=== PATIENT | male | born 1945 ===

== ENCOUNTER → 2017-04-27 | Outpatient (CLI) | payer OTHER ==
--- NOTE | 2017-05-05 10:25 | P.ARTDOP ---
Arterial Doppler LOWER EXTREMITY ARTERIAL DOPPLER: DATE OF SERVICE: 04/27/2017 Reason for study: Bilateral leg discoloration and swelling. Doppler waveforms: Multiphasic to the popliteal bilaterally and atypical below. Good toe waveforms.. Pulse volume recording: []. Pressure gradients: Mild distal gradient at the left foot. Ankle-brachial indices: 0.98 on the right and greater than 1 on the left. Toe pressures: 83 on the right, 58 on the left Impression: Mild distal disease with perfusion pressures adequate for healing..
== END | disposition home or self-care (01) ==
LOC: RADUSWWP 14:11
PROVIDERS: ATTEND Family Medicine
DX: I77.89 Other specified disorders of arteries and arterioles (principal)
CPT/HCPCS: 93923

== ENCOUNTER → 2017-05-13 | Outpatient (CLI) | payer OTHER | END | disposition home or self-care (01) | LOC: LABPAT 13:31 | PROVIDERS: ATTEND Orthopaedic Surgery Orthopaedic Surgery of the Spine | DX: Z01.812 Encounter for preprocedural laboratory examination (principal); Z01.818 Encounter for other preprocedural examination | CPT/HCPCS: 87070 ==

== ENCOUNTER 2017-05-19 06:23 | Inpatient (IN) | payer OTHER ==
[2017-05-13 07:57] VITALS: BMI 29.4
[~2017-05-19 06:23] MED LIST: BACITRACIN 50,000 UNIT, POLYMYXIN B 500,000 UNIT in SODIUM CHLORIDE 0.9% IRRIGATIO 1,00... IRRIGATION ONE; HYDROmorphone 1 MG/ML 1 ML SYRINGE IVP PRN; LIDOCAINE 1% 20 ML VIAL (10MG/ML) FOR IV START INTRADERMA PRN; ceFAZolin 2 GM in SODIUM CHLORIDE 0.9% 100 ML IVPB ONE
[2017-05-19] MEDS: LACTATED RINGERS 1,000 ML IV SCH (07:05)
[2017-05-19] MEDS ORDERED: ONDANSETRON 4 MG/2 ML VIAL IVP STA (07:06)
[2017-05-19] MEDS ORDERED: fentaNYL (PF) 50 MCG/ML 2 ML AMP ONE (07:58)
[2017-05-19] MEDS ORDERED: THROMBIN (BOVINE) 5,000 UNIT VIAL TOPICAL ONE (07:58)
[2017-05-19] MEDS ORDERED: HEPARIN SODIUM,PORCINE 10,000 UNIT/ML 1 ML VIAL ONE (07:58)
[2017-05-19] MEDS ORDERED: PROPOFOL 10 MG/ML 20 ML VIAL IV ONE (07:58)
[2017-05-19] MEDS ORDERED: LIDOCAINE 0.5%-EPI 1:200,000 50 ML VIAL SQ ONE (07:58)
[2017-05-19] MEDS ORDERED: SUCCINYLCHOLINE CHLORIDE 100 MG/5 ML SYR IV ONE (07:58)
[2017-05-19] MEDS ORDERED: GELATIN SPONGE,ABSORB (LARGE) 1 EACH SPONGE TOPICAL ONE (07:58)
[2017-05-19] MEDS ORDERED: ePHEDrine 50 MG/ML 1 ML AMP ONE (07:58)
[2017-05-19] MEDS ORDERED: KETAMINE 10 MG/ML 20 ML VIAL ONE (07:58)
[2017-05-19] MEDS ORDERED: PHENYLEPHRINE-0.9% NACL SYG 1 MG/10 ML SYRINGE ONE (07:58)
[2017-05-19] MEDS ORDERED: MIDAZOLAM 2 MG/2 ML VIAL ONE (07:58)
[2017-05-19] MEDS ORDERED: ROCURONIUM BROMIDE 10 MG/ML 10 ML VIAL IV ONE (07:58)
[2017-05-19] MEDS ORDERED: SODIUM CHLORIDE 0.9% IRRIG 1,000 ML BTL IRRIGATION ONE (07:58)
[2017-05-19] MEDS ORDERED: METOPROLOL TARTRATE 5 MG/5 ML VIAL IVP ONE (07:58)
[2017-05-19] MEDS ORDERED: LIDOCAINE 1% INJ 10MG/ML (20 ML MDV) ONE (07:58)
[2017-05-19] MEDS ORDERED: LACTATED RINGERS 1,000 ML IV ONE ×3 (08:30→11:20)
[2017-05-19] MEDS ORDERED: [UNRECOGNIZED DRUG - OTHER] MISCELLANE ONE ×4 (09:09)
[2017-05-19] MEDS ORDERED: BUPIVACAINE LIPOSOME MISCELLANE ONE ×4 (09:09)
[2017-05-19 11:10] LABS: Blood Urea Nitrogen 18 mg/dL (9-20); Non-African American GFR(MDRD) >60 (>60 ml/min/1.73 sqM)
[2017-05-19] MEDS ORDERED: ONDANSETRON 4 MG/2 ML VIAL IVP PRN (13:03)
[2017-05-19] MEDS ORDERED: BENZOCAINE/MENTHOL LOZENG 1 EACH LOZENGE MUCOUS MEM PRN (13:03)
[2017-05-19] MEDS ORDERED: DIAZEPAM 5 MG TAB PO PRN (13:03)
[2017-05-19] MEDS ORDERED: HYDROmorphone 1 MG/ML 1 ML SYRINGE IVP PRN ×2 (13:03)
[2017-05-19] MEDS ORDERED: MAGNESIUM HYDROXIDE 2,400 MG/10 ML CUP PO PRN (13:03)
--- NOTE | 2017-05-19 13:14 | P.OP ---
Date of Procedure: 05/19/17 Preoperative Diagnosis: Spinal stenosis L4 5 L5-S1, degenerative disc disease L4 5 L5-S1, facet arthrosis, lower extremity radiculopathy Postoperative Diagnosis: Same Procedure(s) Performed: Implants: Anesthesia: GETA Pathology: none sent Condition: stable Disposition: PACU Indications for Procedure: Operative Findings: Description of Procedure: DESCRIPTION OF PROCEDURE(S): BRIEF OPERATIVE NOTE Preoperative Diagnosis: Spinal stenosis L4 5 L5-S1, degenerative disc disease L4 5 L5-S1, facet arthrosis, low back pain with lower extremity radiculopathy Postoperative Diagnosis: Same Procedure: Laminectomy and decompression, minimally invasive L4 5 L5-S1 Minimally invasive Posterior lateral decompression and facet fusion L4 5 L5-S1 Minimally invasive Transforaminal lumbar interbody fusion for a 360 fusion L4 5 L5-S1 Discectomy for decompression L4 5 L5-S1 Placement of interbody graft L4 5 L5-S1 Local autogenous bone grafting Bone marrow aspiration via the pedicle of L5 on the left to be used with the supplementing of bone graft Use of Cell Saver Use of bone graft extenders Surgeon: Dr. Borrero Robotype Operator: Brian MEJIA, my PA Anesthesia: General anesthesia per Dr. Fabian Estimated blood loss: Approximately 4 and 50 mL with 200 given back through Cell Saver Complications: None apparent Components implanted:K2M minimally invasive [place] screw pedicle screw system with 5 screws measuring 6.5 and 1 screw measuring at S1 on the right 7.5, I also used one large osteoamp sponge and continuous fiber allograft Disposition: To recovery room in good stable condition. OPERATIVE INDICATIONS The patient has had long-standing issues in their lower back and lower extremities. His found have significant stenosis at the bilateral neural foramen with degenerative disc disease and spinal stenosis with facet arthrosis correlating with his back pain and lower extremity radiculopathy. The patient has been through conservative treatment. He is not having any prolonged benefit despite aggressive conservative treatment We discussed various treatment options including surgery, and the patient wishes to proceed with surgery We discussed the risk, patient's alternatives and benefits of surgery including but not limited to, risk of bleeding risk of infection, risk of need for further surgery, risk of decreased, loss of motion, muscle function, malunion nonunion, hardware failure, nerve damage, paralysis, heart attack, blindness and . OPERATIVE SUMMARY After discussing all the risks, patient alternatives and benefits at length, the patient elected to proceed with surgical intervention, signed informed consent, and presented for their procedure. The patient was seen and examined in the preoperative holding area and the surgical site was marked. The patient was given antibiotics and brought to the operating room. The patient was sedated and intubated by anesthesia in standard fashion. The patient was positioned on to the operating room table in a prone position on the appropriate frame which was well-padded and well molded. We were careful to pad any bony prominences and pressure points. We were careful to maintain the patient's cervical spine and good neutral alignment and position throughout. The patient was prepped and draped in a normal standard fashion. An appropriate timeout and keystone protocol performed. We were able to proceed with the surgery. The local wound area was infiltrated with local anesthetic. I was able utilize C-arm guidance to establish appropriate position over the pedicles bilaterally at the appropriate levels at L4 5 and L5-S1. With the appropriate levels confirmed was able to make small stab incisions over the appropriate pedicle sites bilaterally. Utilizing C-arm in his house able to establish a Jamshidi needle over the lateral aspect of the pedicle and advanced the trocar into the pedicle being careful not to breech superiorly inferiorly medially or laterally. Position was confirmed regularly with AP and lateral images on C-arm. I was able to establish the trocar into the pedicle appropriately into the posterior aspect of the vertebral body bilaterally at the appropriate levels. This was done at each of the pedicle positions and each of the vertebrae. I was able place the guidewire into the trocar and into the vertebral body appropriately under C-arm guidance. Dissection was taken down over the wire to the appropriate starting position for the screw placed. The appropriate length screw was chosen, threaded over the guidewire and screwed appropriately into the pedicle and vertebral body under C-arm guidance in excellent alignment and position with good bony purchase. This is done at each of the screw sites at the appropriate levels. After placing the trocar at L5-S1 left I did perform a bone marrow aspiration through the pedicle for use with the bone marrow aspirate in conjunction with the autograft and allograft bone graft. This was performed at L4-L5 and S1 bilaterally. I did note that there was some lateralization of the screw at S1 on the right and I repositioned the guidewire and screw to get good alignment good position with excellent bony purchase. At on that screw I used a 7.5 mm screw instead of using the 6.5 mm screw for additional fixation. With the screws intact I extended the incision to connect the screw hole sites on the most symptomatic side on the left. I started at L5-S1 and then moved up to L4 5. I dissected down to establish access over the pars and lamina to the base of the spinous process. I was able to expose the facet joint. The capsule the facet was taken down and showed some facet arthrosis at the joint. I was able to use a combination of curettes and Kerrison rongeurs and a high- speed drill to take down the facet joint and do a facetectomy. Partial laminectomy was also performed. I was able get excellent foraminal decompression and central decompression with undermining across midline to perform a laminectomy centrally and contralaterally. As able get good central decompression. The ligamentum flavum was taken down to further decompress centrally and at bilateral neural foramen. I was able to expose the disc space and visualize the traversing nerve root. Note was made of some disc protrusion at the level causing further compression of the nerve root. I was able to establish a annulotomy at the appropriate level protecting soft tissue and neural structures. Note was made of some disc desiccation at the disc. I performed a complete discectomy with accommodation of curettes and rasps and scrapers. I was able get good endplate preparation at the disc space. I sized for the appropriate size interbody spacer protecting the soft tissue and neural structures. The wound was copiously irrigated and suctioned dry. There is no evidence of any dural tear or leak. I was able to pack the disc space with local autogenous bone graft as well as a small amount of infuse which was also placed into the interbody cage itself. Protecting the soft tissue structures and neural structures I was able place the interbody cage in good alignment and good position with good fit and fill at the interbody space. His issues was confirmed with C-arm guidance. Good hemostasis maintained. There is no evidence of any dural tear or leak. The wound was irrigated and suctioned dry. This was performed first at L5-S1 and then at L4 5 With the hardware intact, intraoperative C-arm imaging was again taken which showed good alignment and position of the hardware at the appropriate levels at L4 5 and S1. We were then able to measure, contour and place the rods and appropriate hardware bilaterally. I was able to place capcrews, tighten them down, and shear them off appropriately. The sheared portion was counted and accounted for. With this intact I was able to place the local autogenous bone graft with additional bone graft enhancer as necessary into the posterior lateral gutters over the decorticated transverse processes. The remainder of the infuse was placed over the facet joint on the contralateral side after taking down the facet joint capsule. With the bone graft intact, a stable construct, and good decompression at the appropriate levels, we were able to proceed with closure. Good hemostasis was maintained. There is no evidence of dural tear or leak. The fascia was closed for a watertight closure. he subcuticular tissue was closed with absorbable suture. The bilateral wounds were infiltrated with Exparel local anesthetic The wound was cleaned and dried and dressed with the appropriate dressing. The drapes were broken down. The patient was gently rolled back onto their hospital bed being careful to maintain their cervical spine and good neutral alignment and position. They were woken up by anesthesia, extubated, and brought to the recovery room in good stable condition. The patient will be admitted to the hospital for appropriate postoperative care , medical management and monitoring. We will continue to follow them closely about the postoperative course.
--- NOTE | 2017-05-19 13:34 | XR ---
EXAMINATION TYPE: XR lumbar spine 2 or 3V, FL guidance operating room DATE OF EXAM: 05/19/2017 COMPARISON: NONE HISTORY: Lumbar fusion TECHNIQUE: Intraoperative fluoroscopic images were obtained. FINDINGS: 2 minutes and 31 seconds of fluoroscopy time was utilized by the ordering physician Dr. Sebastian pena. Fluoroscopic images were not submitted. IMPRESSION: Intraoperative fluoroscopic use for lumbar fusion.
[2017-05-19] MEDS: FUROSEMIDE 40 MG TAB PO SCH (17:07)
[2017-05-19] MEDS: ceFAZolin 2 GM in SODIUM CHLORIDE 0.9% 100 ML IVPB SCH ×2 (17:07→23:57)
[2017-05-19] MEDS ORDERED: PRAVASTATIN SODIUM 10 MG PO SCH (21:00)
[2017-05-19] MEDS: METOPROLOL TARTRATE 25 MG TAB PO SCH (21:22)
[2017-05-19] MEDS: PRAVASTATIN SODIUM 20 MG TAB PO SCH (21:22)
[2017-05-19] MEDS: SODIUM CHLORIDE 0.9% 1,000 ML IV SCH (22:48)
[2017-05-20] MEDS: HYDROcodone/APAP 5-325MG 1 EACH TAB PO PRN ×4 (03:49→19:29)
[2017-05-20] MEDS: LACTATED RINGERS 1,000 ML IV SCH (07:25)
[2017-05-20] MEDS: SODIUM CHLORIDE 0.9% 1,000 ML IV SCH ×2 (07:25→17:51)
[2017-05-20 07:54] LABS: Basophils % (A) 0 %; CH 31.1; CHCM 32.2; Eosinophils % (A) 0 %; HCT 40.3 % (39.0-53.0); HDW 2.48; HGB 13.2 gm/dL (13.0-17.5); Luc # (Auto) 0.22; Luc % (Auto) 2; Lymphocytes # (A) 1.8 k/uL (1.0-4.8); Lymphocytes % (A) 13 %; MCH 31.7 pg (25.0-35.0); MCHC 32.6 g/dL (31.0-37.0); Mean Platelet Volume 7.4; Monocytes # (A) 1.1 k/uL (0-1.0); Monocytes % (A) 8 %; Neutrophils # (A) 10.4 k/uL (1.3-7.7); Neutrophils % (A) 77 %; RBC 4.16 m/uL (4.30-5.90); RDW 13.9 % (11.5-15.5); WBC 13.5 k/uL (3.8-10.6); WBC (Perox) 14.05
[2017-05-20 08:00] LABS: Anion Gap 6 mmol/L; Blood Urea Nitrogen 11 mg/dL (9-20); Calcium 8.2 mg/dL (8.4-10.2); Carbon Dioxide 27 mmol/L (22-30); Chloride 104 mmol/L (98-107); Glucose 93 mg/dL (74-99); Non-African American GFR(MDRD) >60 (>60 ml/min/1.73 sqM); Potassium 3.9 mmol/L (3.5-5.1); Sodium 137 mmol/L (137-145)
--- NOTE | 2017-05-20 08:29 | CONS ---
REASON FOR CONSULTATION: Advice regarding hypertension, hyperlipidemia requested by Dr. Borrero. HISTORY OF PRESENT ILLNESS: This 71 -year-old gentleman with past medical history of hypertension, history of DJD, hyperlipidemia, history of CAD, CABG, stent being followed by Dr. Cavanaugh in the outpatient setting was admitted after laminectomy decompression L4-5, L5-S1. There is no history of fever, rigors or chills. No history of headache, loss of consciousness or seizures, no chest pain, palpitations, hematochezia, hematemesis or melena at this time. PAST MEDICAL HISTORY: History of hypertension, hyperlipidemia, DJD, history of sleep apnea. Home medications are: 1. Pravastatin 10 mg q.h.s. 2. [place]-3 fatty acid daily. 3. Multivitamins one po daily. 4. Lopressor 25 mg po daily. 5. Zestril 2.5 mg daily. 6. Synthroid 18 mcg po daily. 7. Garlic one tablet po daily. 8. Lasix 40 mg po daily. 9. Vitamin D 1000 daily. 10. Aspirin 81 mg daily. 11. Vitamin C 500 mg daily. ALLERGIES: BEE POLLEN, NITROSTATIN. FAMILY HISTORY: History of cancer in the family. SOCIAL HISTORY: History of smoking. No history of alcohol intake. REVIEW OF SYSTEMS: HEENT: No diminished vision. No diminished hearing. Cardiovascular system: No angina or palpitations. Respiratory: No cough, hemoptysis. GI: No nausea or vomiting. : No dysuria. Nervous system: No numbness or weakness. Allergy/Immunology: No asthma or hayfever. Musculoskeletal: As mentioned earlier. Hematology/oncology: No history of anemia. Endocrine: No history of diabetes or hypothyroidism. Constitutional : As mentioned earlier. Dermatology: Negative. Rheumatology: Negative. Psychiatry: As mentioned earlier. PHYSICAL EXAMINATION: The patient is alert and oriented times three. Pulse 72. Blood pressure 131/50. Respiratory rate 16. Temperature normal. Pulse ox 98% on 4 L. HEENT: Conjunctivae normal. NECK: No JVD. CARDIOVASCULAR: S1, S2 muffled. RESPIRATORY: Breath sounds diminished at the bases. Bilateral scattered rhonchi. No crackles. Abdomen soft. Nontender. No mass palpable. LEGS: No edema. No swelling. Examination of the back status post surgery. RN ONCOLOGY RESEARCH: No focal deficits. Labs are not available. Previous labs done prior to admission: Creatinine normal. ASSESSMENT: 1. Status post laminectomy and decompression L4-5, L5-S1 for spinal stenosis and degenerative joint disease. 2. Hypertension. 3. Hyperlipidemia. 4. Degenerative joint disease. 5. Sleep apnea. 6. History of coronary artery disease, CABG/stent. RECOMMENDATIONS AND DISCUSSION: This 71 -year-old gentleman who presented with multiple complex medical issues, we will monitor the patient closely. Continue the current medications, continue symptomatic treatment. I would recommend resume the home medications including antiplatelet agents. DVT prophylaxis. Incentive spirometry. We will follow the patient closely with you. The patient may be asked to follow-up with Dr. Cavanaugh closely after discharge. Thank you Dr. Borrero for letting us participate in the care of this patient. Repeat labs have been ordered to ensure ( ). Otherwise, follow the patient closely. Further recommendations to follow. MTDD
[2017-05-20] MEDS: LEVOTHYROXINE 88 MCG TAB PO SCH (08:44)
[2017-05-20] MEDS: CHOLECALCIFEROL 1,000 UNIT TAB PO SCH (08:44)
[2017-05-20] MEDS: METOPROLOL TARTRATE 25 MG TAB PO SCH ×2 (08:44→22:19)
[2017-05-20] MEDS: LISINOPRIL 2.5 MG TAB PO SCH (08:44)
[2017-05-20] MEDS: SENNOSIDES-DOCUSATE SODIUM 1 EACH TAB PO SCH (08:44)
[2017-05-20] MEDS: FUROSEMIDE 40 MG TAB PO SCH ×2 (08:44→15:05)
[2017-05-20] MEDS: ASCORBIC ACID 500 MG TAB PO SCH (08:44)
[2017-05-20] MEDS: ASPIRIN 81 MG CHEW PO SCH (08:44)
--- NOTE | 2017-05-20 09:44 | P.PN ---
Progress Note - Text Postoperative day #1 Patient is seen and examined today at bedside. The patient has some pain around the surgical site as expected. Pain is being controlled with medication. His back has been sore but he is tolerating her pain adequately with medications. He has been able to tolerate his regular diet. His Wilkinson is still intact. He was up out of bed yesterday. Physical Exam Afebrile with stable vital signs Abdomen is soft nontender. Chest has good excursion deep and space expiration The incision site is clean dry and intact. No erythema there is no purulence.There was some mild drainage on the dressing on the left, but this appears stable. The dressing is intact. There is no erythema Extremities have not had neurologic change from prior to surgery. He has sustained dorsal flexion plantarflexion and EHL intact Calves and thighs were soft nontender without evidence of DVT. Assessment/Plan Postoperative day #1 status post minimally invasive decompression and fusion L4 5 L5-S1 for his spinal stenosis with degenerative disc disease Patient is progressing as expected from the surgery. We will continue to increase his mobility today and we will discontinue his Wilkinson The dressing appears to be stable and we will change it tomorrow We will continue to increase the patient's mobilization with therapy. We will continue pain control with oral or IV medications. We'll continue to follow patient closely. If he continues to improve his mobility he may be stable for discharge home tomorrow or Wednesday. He may need assistive device such as a walker for home.
[2017-05-20 10:46] LABS: Appearance,Urine Clear (Clear); Bilirubin,Urine Negative (Negative); Glucose,Urine (UA) Negative (Negative); Ketones,Urine Negative (Negative); Leukocyte Esterase,Urine Moderate (Negative); Mucus,Urine Rare /hpf; Nitrite,Urine Negative (Negative); PH, Urine 6.5 (5.0-8.0); Particle Count 1863; Protein,Urine Trace (Negative); RBC,Urine 59 /hpf (0-5); Specific Gravity,Urine 1.017 (1.001-1.035); UA Billing (MACRO vs. MICRO) MICRO; WBC,Urine 28 /hpf (0-5)
[2017-05-20] MEDS ORDERED: MULTIVITAMINS, THERA 1 EACH TAB PO SCH (12:00)
[2017-05-20] MEDS ORDERED: LEVOFLOXACIN 500MG-D5W PMX 500 MG in DEXTROSE/WATER 1 100ML.BAG IVPB SCH (19:00)
[2017-05-20] MEDS: PRAVASTATIN SODIUM 20 MG TAB PO SCH (22:20)
[2017-05-21] MEDS: HYDROcodone/APAP 5-325MG 1 EACH TAB PO PRN ×3 (00:19→12:02)
[2017-05-21] MEDS: CHOLECALCIFEROL 1,000 UNIT TAB PO SCH (07:18)
[2017-05-21] MEDS: ASPIRIN 81 MG CHEW PO SCH (07:18)
[2017-05-21] MEDS: SENNOSIDES-DOCUSATE SODIUM 1 EACH TAB PO SCH (07:18)
[2017-05-21] MEDS: LISINOPRIL 2.5 MG TAB PO SCH (07:18)
[2017-05-21] MEDS: FUROSEMIDE 40 MG TAB PO SCH (07:18)
[2017-05-21] MEDS: METOPROLOL TARTRATE 25 MG TAB PO SCH (07:18)
[2017-05-21] MEDS: ASCORBIC ACID 500 MG TAB PO SCH (07:18)
[2017-05-21] MEDS: LEVOTHYROXINE 88 MCG TAB PO SCH (07:19)
[2017-05-21] MEDS: SODIUM CHLORIDE 0.9% 1,000 ML IV SCH (07:21)
[2017-05-21] MEDS: LACTATED RINGERS 1,000 ML IV SCH (07:21)
[2017-05-21 08:00] LABS: Basophils % (A) 0 %; CH 30.9; CHCM 32.1; Eosinophils # (A) 0.1 k/uL (0-0.7); Eosinophils % (A) 0 %; HCT 41.9 % (39.0-53.0); HDW 2.53; HGB 13.6 gm/dL (13.0-17.5); Luc # (Auto) 0.37; Luc % (Auto) 2; Lymphocytes # (A) 1.6 k/uL (1.0-4.8); Lymphocytes % (A) 9 %; MCH 31.4 pg (25.0-35.0); MCHC 32.5 g/dL (31.0-37.0); MCV 96.9 fL (80.0-100.0); Mean Platelet Volume 7.3; Monocytes # (A) 1.3 k/uL (0-1.0); Monocytes % (A) 7 %; Neutrophils # (A) 14.6 k/uL (1.3-7.7); Neutrophils % (A) 81 %; RBC 4.32 m/uL (4.30-5.90); RDW 13.8 % (11.5-15.5); WBC (Perox) 18.94
--- NOTE | 2017-05-21 08:42 | P.DS ---
Providers Date of admission: 05/19/17 06:23 Expected date of discharge: 05/21/17 Attending physician: Vicki Borrero Consults: 05/19/17 13:03 Consult Physician Routine Consulting Provider: Kash Tsai Consult Reason/Comments: Medical management Do you want consulting provider notified?: Yes Primary care physician: Gee Cavanaugh - Discharge Diagnosis(es) (1) Facet arthropathy, lumbar Current Visit: Yes Status: Acute (2) Disc disease, degenerative, lumbar or lumbosacral Current Visit: Yes Status: Acute (3) Radiculopathy with lower extremity symptoms Current Visit: Yes Status: Acute (4) Lumbar spinal stenosis Current Visit: Yes Status: Acute Hospital Course: This is a pleasant 71-year-old male who presented with L4-5 and L5-S1 degenerative disc disease and spinal stenosis, facet arthrosis, and lower extremity radiculopathy who failed outpatient conservative therapy. He was admitted for a posterior lateral decompression and fusion with transforaminal lumbar interbody fusion L4-5 and L5-S1. The patient tolerated the procedure well and did well postoperatively. He is not currently complaining of lower extremity radiculopathy. His back pain has been well-controlled postsurgically with medication. He's been able to ambulate with the assistance of a walker. He states he has a wheeled walker at home and he may use this to repairer helper in ambulation. He has been eating and voiding without difficulty. He's been able to resume full regular diet without complication. He has not had a bowel movement since admission to the hospital but states he has had significant passing of gas. He denies any abdominal pain. He states he feels he is ready for discharge home this afternoon. Condition on day of discharge stable. Patient will be discharged home. Patient was cleared preoperatively for surgery by Dr. Cavanaugh. Patient currently denies any nausea, vomiting, fever , or chills. Patient may shower Tegaderm dressing intact. Patient may remove Tegaderm dressing in 3 days and shower without a dressing at that time. Patient should keep Steri-Strips intact and allow them to fall off naturally. Patient should refrain from driving until at least after their first follow-up appointment in the office. Patient should avoid excessive bending, lifting, and twisting; no lifting greater than 10 pounds. Urinalysis was taken yesterday which show evidence of urinary tract infection. He has had in increase in his WBC. Patient has been seen by Dr. Tsai in medicine. Dr. Tsai started the patient on Levaquin. He'll be cleared for discharge pending clearance for discharge by medicine. Patient will not be cleared for discharge until medically cleared by medicine. We will plan for medicine to prescribe antibiotic medication for his urinary tract infection at discharge. Patient will be given a prescription for [place] 7.5 mg/325 mg 1 tab every 6 hours as needed for pain dispense #90 and [place]-S 1 tab twice per day as needed for constipation, dispense #60. Physical Exam on day of discharge: Patient is awake, alert, and oriented 3 Vital signs stable Good chest excursion with deep inspiration and expiration Abdomen soft nontender No signs or symptoms of DVT; no calf pain Extensor hallucis longus, plantarflexion, and dorsiflexion positive sustained bilateral lower extremities Incision is clean, dry, and intact; no erythema, purulence, or signs of infection Tegaderm dressing and non-stick Telfa intact Pertinent Studies: Pertinent Studies taken on 05/21/2017: WBC 18.0 RBC 4.32 Hemoglobin 13.6 Hematocrit 41.9 Neutrophils 14.6 Monocytes 1.3 Procedures: Posterior lateral decompression and fusion with transforaminal lumbar interbody fusion L4-5 and L5-S1. Patient Condition at Discharge: Stable Plan - Discharge Summary New Discharge Prescriptions: New HYDROcodone/APAP 7.5-325MG [Norman 7.5-325] 1 each PO Q6HR PRN #90 tab PRN Reason: Pain Sennosides-Docusate Sodium [Senokot-S] 1 tab PO BID PRN #60 tablet PRN Reason: Constipation No Action Metoprolol Tartrate [Lopressor] 25 mg PO BID Lisinopril [Zestril] 2.5 mg PO DAILY Cholecalciferol [Vitamin D3] 1,000 unit PO DAILY Aspirin 81 mg PO DAILY Ascorbic Acid [Vitamin C] 500 mg PO DAILY Levothyroxine Sodium [Synthroid] 88 mcg PO DAILY Furosemide [Lasix] 40 mg PO BID [place]-3 Fatty Acids/Fish Oil [Fish Oil 1,000 mg Softgel] 1 cap PO DAILY Multivitamin [Men's Multi-Vitamin] 1 tab PO DAILY Garlic 1 tab PO DAILY Pravastatin Sodium [Pravachol] 10 mg PO HS Discharge Medication List Ascorbic Acid [Vitamin C] 500 mg PO DAILY 05/13/17 [History] Aspirin 81 mg PO DAILY 05/13/17 [History] Cholecalciferol [Vitamin D3] 1,000 unit PO DAILY 05/13/17 [History] Furosemide [Lasix] 40 mg PO BID 05/13/17 [History] Garlic 1 tab PO DAILY 05/13/17 [History] Levothyroxine Sodium [Synthroid] 88 mcg PO DAILY 05/13/17 [History] Lisinopril [Zestril] 2.5 mg PO DAILY 05/13/17 [History] Metoprolol Tartrate [Lopressor] 25 mg PO BID 05/13/17 [History] Multivitamin [Men's Multi-Vitamin] 1 tab PO DAILY 05/13/17 [History] [place]-3 Fatty Acids/Fish Oil [Fish Oil 1,000 mg Softgel] 1 cap PO DAILY [History] Pravastatin Sodium [Pravachol] 10 mg PO HS 05/19/17 [History] HYDROcodone/APAP 7.5-325MG [[place] 7.5-325] 1 each PO Q6HR PRN #90 tab 05/21/17 [ Rx] Sennosides-Docusate Sodium [Senokot-S] 1 tab PO BID PRN #60 tablet 05/21/17 [Rx] Follow up Appointment(s)/Referral(s): Brian Shi, PAC [PHYSICIAN CHOP SAW OPERATOR] - 2 Weeks (Patient may follow-up with Brian Shi PA-C or Dr. Brijesh Borrero at [facility] in 2-3 weeks following discharge. ) Activity/Diet/Wound Care/Special Instructions: 1. Patient may shower Tegaderm dressing intact. 2. Patient may remove Tegaderm dressing in 3 days and shower without a dressing at that time. 3. Patient should keep Steri-Strips intact and allow them to fall off naturally. 4. Patient should refrain from driving until at least after their first follow- up appointment in the office. 5. Patient should avoid excessive bending, twisting, and lifting; no lifting greater than 10 pounds 6. Do not soak in tub 7. He may use wheeled walker to aid in ambulation as needed Discharge Disposition: HOME SELF-CARE
[2017-05-21 09:22] VITALS: BP 143/84; PULSE 86; RESP 14; TEMP 99.8
--- NOTE | 2017-05-21 09:40 | PN ---
DATE OF SERVICE: 05/20/2017 This is a 71-year-old gentleman who was admitted after laminectomy, has improved significantly. No chest pain or palpitation. Awake, ( ) is slightly elevated. On exam, alert and oriented x3. Pulse 82, blood pressure 130/64, respiration is 18, temperature is 98.4, pulse ox 94% on room air. HEENT: Conjunctivae normal. Oral mucosa moist. NECK: No jugular venous distension, no carotid bruit, no lymph node enlargement. CARDIOVASCULAR SYSTEM: S1, S2, muffled. RESPIRATORY: Breath sounds diminished at the bases. ABDOMEN: Soft, nontender. LEGS: No edema, no swelling. NERVOUS SYSTEM: A No focal distension. BACK : Status post surgery. LABS: WBC is 13.5, sodium 137, UA shows possible UTI. ASSESSMENT: 1. Status post laminectomy and decompression L4-5, L5-S1 with spinal stenosis and degenerative join disease. 2. Urinary tract infection. 3. Hypertensin. 4. Hyperlipidemia. 5. History of degenerative joint disease. 6. History of sleep apnea. 7. History of coronary artery disease, coronary artery bypass grafting, stent. RECOMMENDATION: In this 71-year-old gentleman who presented with multiple medical problems, I would recommend to continue with the current medication and symptomatic treatment. diet. A short course of Levaquin; otherwise, repeat labs also would be recommended. Will follow the patient with incentive spirometry, DVT prophylaxis. Further recommendations to follow. . MTDD
--- NOTE | 2017-05-22 13:00 | PN ---
DATE OF SERVICE: 05/21/2017 This 71-year-old woman was admitted with laminectomy and decompression, also UTI. No chest pain, no palpitation, no fever. On exam, alert and oriented x3. Pulse 80, blood pressure 130/84, respirations 14, temperature 98.8, pulse ox 97% on room air. HEENT: Conjunctiva normal. NECK: No JVD. CARDIOVASCULAR: S1/S2. RESPIRATORY: Diminished breath sounds, especially at the bases. A few scattered rhonchi. ABDOMEN: Soft, nontender. LEGS: No swelling. NERVOUS SYSTEM: No focal deficits. LABS: WBC 18. UA noted. Culture pending. ASSESSMENT: 1. Status post laminectomy with decompression at L3-L4 and L5-S1 with spinal stenosis. 2. Degenerative joint disease. 3. Urinary tract infection. 4. Hypertension. 5. Hyperlipidemia. 6. History of sleep apnea. 7. History of coronary artery disease, coronary artery bypass graft, stent. RECOMMENDATIONS AND DISCUSSION: Recommend to continue current medication, continue to monitor, continue symptomatic treatment, continue with antibiotics continue other medications. Otherwise, the rest of the recommendations per surgery. Further recommendations to follow. MTDD
== END 2017-05-21 13:13 | disposition home or self-care (01) | DRG 460 ==
LOC: 2ORMAIN 06:23 → 3SUR 13:21
PROVIDERS: ADMIT Orthopaedic Surgery Orthopaedic Surgery of the Spine; ATTEND Orthopaedic Surgery Orthopaedic Surgery of the Spine
PROC: 0SG00AJ Fusion of Lumbar Vertebral Joint with Interbody Fusion Device, Posterior Approach, Anterior Column, Open Approach (ICD-10-PCS; principal; 2017-05-19 08:00)
PROC: 0SG3071 Fusion of Lumbosacral Joint with Autologous Tissue Substitute, Posterior Approach, Posterior Column, Open Approach (ICD-10-PCS; principal; 2017-05-19 08:00)
PROC: 0ST40ZZ Resection of Lumbosacral Disc, Open Approach (ICD-10-PCS; principal; 2017-05-19 08:00)
PROC: 0ST20ZZ Resection of Lumbar Vertebral Disc, Open Approach (ICD-10-PCS; principal; 2017-05-19 08:00)
PROC: 0SG30AJ Fusion of Lumbosacral Joint with Interbody Fusion Device, Posterior Approach, Anterior Column, Open Approach (ICD-10-PCS; principal; 2017-05-19 08:00)
PROC: 07DR3ZZ Extraction of Iliac Bone Marrow, Percutaneous Approach (ICD-10-PCS; principal; 2017-05-19 08:00)
PROC: 0SG0071 Fusion of Lumbar Vertebral Joint with Autologous Tissue Substitute, Posterior Approach, Posterior Column, Open Approach (ICD-10-PCS; principal; 2017-05-19 08:00)
DX: M48.06 Spinal stenosis, lumbar region (principal); N39.0 Urinary tract infection, site not specified; I10 Essential (primary) hypertension; E78.5 Hyperlipidemia, unspecified; M46.96 Unspecified inflammatory spondylopathy, lumbar region; M51.36 Other intervertebral disc degeneration, lumbar region; M51.17 Intervertebral disc disorders with radiculopathy, lumbosacral region; G47.30 Sleep apnea, unspecified; I25.10 Atherosclerotic heart disease of native coronary artery without angina pectoris; Z79.82 Long term (current) use of aspirin; Z79.899 Other long term (current) drug therapy; Z80.9 Family history of malignant neoplasm, unspecified; Z87.891 Personal history of nicotine dependence; Z95.1 Presence of aortocoronary bypass graft; Z95.5 Presence of coronary angioplasty implant and graft
CPT/HCPCS: 72100; 80048; 81001; 82565; 84520; 85025; 86850; 86891; 86900; 86901

== ENCOUNTER → 2019-03-06 | Outpatient (CLI) | payer OTHER ==
--- NOTE | 2019-03-06 17:20 | MR ---
EXAMINATION TYPE: MR cervical spine wo/w con DATE OF EXAM: 03/06/2019 COMPARISON: MR 04/29/2016 cervical spine HISTORY: Cervicalgia / Weakness TECHNIQUE: Multiplanar, multisequence images of the cervical spine were acquired utilizing 7.5 mL intravenous Ga davist gadolinium contrast. Diffusion weighted imaging was performed. C2-C3: No evidence for degenerative disc disease. No disc bulge/herniation or protrusion. No Canal stenosis. Foramina are patent bilaterally. C3-C4: Bilateral foraminal encroachment is present due to uncovertebral joint hypertrophy and facet a rthropathy. Small posterior disc bulge causes minimal anterior mass effect on the thecal sac. No sign ificant central stenosis. C4-C5: Some mild foraminal encroachment is present. Posterior extension of endplate is noted, no sign ificant central stenosis. C5-C6: There is some foraminal encroachment bilaterally. No significant spinal stenosis. C6-C7: There is some left-sided foraminal encroachment. Extension endplate disc complex causes mild a nterior mass effect on the thecal sac. No significant central stenosis. C7-T1: Small posterior lateral disc protrusion causes minimal anterolateral mass effect on the thecal sac. Findings are similar to prior. Cervical segments are intact. There is normal alignment. Cervical spinal cord is of normal signal. Craniovertebral junction relationships are within normal limits. There is no significant interval c hange. Patient is status post anterior cervical fusion and discectomy at C4-C6. The talus is suscepti bility artifact is again noted due to patient's hardware. No abnormal enhancement following contrast administration. IMPRESSION: Essentially stable degenerative disc disease, postop changes, foraminal encroachment.
== END | disposition home or self-care (01) ==
LOC: RADMRIMAIN 15:44
PROVIDERS: ATTEND Orthopaedic Surgery Orthopaedic Surgery of the Spine
DX: M50.10 Cervical disc disorder with radiculopathy, unspecified cervical region (principal); F17.218 Nicotine dependence, cigarettes, with other nicotine-induced disorders; M54.5 Low back pain; Z98.1 Arthrodesis status
CPT/HCPCS: 72156; A9585

== ENCOUNTER → 2019-04-10 | Outpatient (CLI) | payer OTHER ==
--- NOTE | 2019-04-10 14:04 | MR ---
EXAMINATION TYPE: MR brain wo/w con DATE OF EXAM: 04/10/2019 COMPARISON: 06/16/2012 CT brain HISTORY: Muscle weakness TECHNIQUE: Multiplanar, multisequence images of the brain and brainstem is performed without and with IV contras t, utilizing 7.5 mL intravenous Gadavist . FINDINGS: Diffusion weighted images demonstrate no evidence of a recent infarct or other diffusion ab normality. T1 hypointense and FLAIR hyperintense punctate lacunar injury in the right occipital lobe such as on FLAIR image 17 with additional old lacunar injury also seen more anteriorly within the occ ipital lobe on image 15 with central encephalomalacia. Few additional scattered foci of T2/FLAIR hype rintensity within the peripheral subcortical white matter and periventricular white matter. These do not exhibit abnormal enhancement. Brain volume is age appropriate. Midline structures demonstrate normal morphology. The craniocervical junction appears within normal limits. Post contrast images demonstrate no abnormal enhancement. The dural venous sinuses appear pa tent. The visualized sinuses are clear and the globes are intact. IMPRESSION: 1. 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 2. Mild burden nonspecific white matter change, likely on the basis of chronic microangiopathy withou t abnormal enhancement. 3. Mild age-related volume loss.
== END | disposition home or self-care (01) ==
LOC: RADMRIMAIN 12:41
PROVIDERS: ATTEND Psychiatry & Neurology Neurology
DX: R90.89 Other abnormal findings on diagnostic imaging of central nervous system (principal); M62.81 Muscle weakness (generalized); Z86.73 Personal history of transient ischemic attack (TIA), and cerebral infarction without residual deficits
CPT/HCPCS: 70553; A9585

== ENCOUNTER 2019-04-17 16:40 | Inpatient (IN) | payer OTHER, MEDICARE ==
--- NOTE | 2019-04-17 17:40 | ED ---
General Adult HPI - General Chief complaint: Skin/Abscess/Foreign Body Stated complaint: cellulitis Time Seen by Provider: 04/17/19 17:31 Source: family, RN notes reviewed Mode of arrival: wheelchair Limitations: no limitations - History of Present Illness Initial comments: 73-year-old male presents to the emergency department for a chief complaint of c ellulitis. Patient states he has had similar lives in the right leg for about 2 weeks. States he has had swelling in the bilateral legs for quite some time, likely several months. States that he cannot walk due to an unknown neuromuscular disease. States that he was put on Keflex about a week ago for this redness however it has worsened. States he called his doctor today and they told him to come to the emergency department. Denies any fevers.Patient has no other complaints at this time including shortness of breath, chest pain, abdominal pain, nausea or vomiting, headache, or visual changes. - Related Data Home Medications Medication Instructions Recorded Confirmed Ascorbic Acid [Vitamin C] 500 mg PO DAILY 05/13/17 04/17/19 Cholecalciferol [Vitamin D3] 1,000 unit PO DAILY 05/13/17 04/17/19 Furosemide [Lasix] 40 mg PO BID 05/13/17 04/17/19 Garlic 1 tab PO DAILY 05/13/17 04/17/19 Levothyroxine Sodium [Synthroid] 88 mcg PO DAILY 05/13/17 04/17/19 Metoprolol Tartrate [Lopressor] 25 mg PO BID 05/13/17 04/17/19 Multivitamin [Men's Multi-Vitamin] 1 tab PO DAILY 05/13/17 04/17/19 [place]-3 Fatty Acids/Fish Oil [Fish 1 cap PO DAILY 05/13/17 04/17/19 Oil 1,000 mg Softgel] Aspirin [[place] Aspirin EC] 162 mg PO DAILY 04/17/19 04/17/19 Cephalexin [Keflex] 500 mg PO QID 04/17/19 04/17/19 Docusate [Colace] 100 mg PO DAILY 04/17/19 04/17/19 Lisinopril [Zestril] 20 mg PO BID 04/17/19 04/17/19 Milk Thistle 150 mg PO DAILY 04/17/19 04/17/19 Naproxen Sodium [Aleve] 440 mg PO BID 04/17/19 04/17/19 Omeprazole 20 mg PO DAILY 04/17/19 04/17/19 Rosuvastatin [Crestor] 20 mg PO DAILY 04/17/19 04/17/19 Saw [place] 160 mg PO BID 04/17/19 04/17/19 Spironolactone [Aldactone] 25 mg PO DAILY PRN 04/17/19 04/17/19 Ubidecarenone [Co Q-10] 100 mg PO DAILY 04/17/19 04/17/19 Vit C/E/Zn/Coppr/Lutein/Zeaxan 1 cap PO BID 04/17/19 04/17/19 [Preservision Areds 2 Softgel] Allergies Allergy/AdvReac Type Severity Reaction Status Date / Time bee pollen Allergy Anaphylaxis Verified 04/17/19 17:38 atorvastatin AdvReac muscle Verified 04/17/19 17:38 cramps Review of Systems ROS Statement: Those systems with pertinent positive or pertinent negative responses have been documented in the HPI. ROS Other: All systems not noted in ROS Statement are negative. Past Medical History Past Medical History: Hyperlipidemia, Hypertension, Osteoarthritis (OA), Sleep Apnea/CPAP/BIPAP, Thyroid Disorder Additional Past Medical History / Comment(s): DDD, bulging discs, probable sleep apnea History of Any Multi-Drug Resistant Organisms: None Reported Past Surgical History: Appendectomy, Coronary Bypass/CABG, Heart Catheterization, Heart Catheterization With Stent, Orthopedic Surgery Additional Past Surgical History / Comment(s): CABG x2-last 2010, splenectomy, left shoulder surg., cervical fusion Past Anesthesia/Blood Transfusion Reactions: No Reported Reaction Additional Past Anesthesia/Blood Transfusion Reaction / Comment(s): states took 9 days to come off vent. after last open heart surg-he's not sure why Date of Last Stent Placement:: unknown Past Psychological History: No Psychological Hx Reported Smoking Status: Current every day smoker Past Alcohol Use History: None Reported Past Drug Use History: None Reported - Past Family History Sister(s) Family Medical History: Cancer General Exam Limitations: no limitations General appearance: alert, in no apparent distress Head exam: Present: atraumatic, normocephalic, normal inspection Eye exam: Present: normal appearance, PERRL, EOMI. Absent: scleral icterus, conjunctival injection, periorbital swelling ENT exam: Present: normal exam, mucous membranes moist Neck exam: Present: normal inspection, full ROM. Absent: tenderness, meningismus, lymphadenopathy Respiratory exam: Present: normal lung sounds bilaterally. Absent: respiratory distress, wheezes, rales, rhonchi, stridor Cardiovascular Exam: Present: regular rate, normal rhythm, normal heart sounds. Absent: systolic murmur, diastolic murmur, rubs, gallop, clicks Extremities exam: Present: normal capillary refill (Capillary refill is 2 seconds, DP pulse is evident on Doppler), other (Patient does have significant erythema noted from below the knee to the right foot. Patient also has 2+ pitting edema.). Absent: full ROM (Foreign 100 range and is in the bilateral lower summaries which is chronic in nature), tenderness, pedal edema, joint swelling, calf tenderness (No tenderness in the calf) Neurological exam: Present: alert, oriented X3, CN II-XII intact Psychiatric exam: Present: normal affect, normal mood Course Vital Signs 04/17/19 16:41 Temperature 98.4 F Pulse Rate 65 Respiratory 18 Rate Blood Pressure 175/84 O2 Sat by Pulse 96 Oximetry EKG Findings - EKG Comments: EKG Findings:: Sinus bradycardia, ventricular rate 59, NC interval 166, QTC 435 Medical Decision Making - Medical Decision Making 33-year-old male presents to the emergency department for erythema noted to the right leg. Patient states he was diagnosed with cellulitis about a week ago and has been on Keflex since. No improvement. Patient was referred here to the emergency department by primary care. On exam patient does have erythema associated of the lower leg. Neurovascular status is intact. CMP does show potassium of 5.4. This will be rechecked in the morning, no EKG changes. Patient was started on Rocephin and vancomycin.. Patient was concerned for her failure, chest x-ray shows mild atelectasis at the left lung base. No effusions. BNP 63. X-ray of the right foot shows soft tissue swelling, no specific sign of inflammatory arthritis. Patient will be admitted to Dr. Tsai, case was discussed with him. He is seeing patient while down in the emergency department. - Lab Data Result diagrams: 04/17/19 18:10 04/17/19 18:10 Lab Results 04/17/19 04/17/19 04/17/19 Range/Units 18:10 18:10 18:10 WBC 8.7 (3.8-10.6) k/uL RBC 5.10 (4.30-5.90) m/uL Hgb 15.5 (13.0-17.5) gm/dL Hct 49.5 (39.0-53.0) % MCV 97.0 (80.0-100.0) fL MCH 30.4 (25.0-35.0) pg MCHC 31.3 (31.0-37.0) g/dL RDW 15.4 (11.5-15.5) % Plt Count 311 (150-450) k/uL Neutrophils % 59 % Lymphocytes % 24 % Monocytes % 9 % Eosinophils % 4 % Basophils % 1 % Neutrophils # 5.2 (1.3-7.7) k/uL Lymphocytes # 2.1 (1.0-4.8) k/uL Monocytes # 0.8 (0-1.0) k/uL Eosinophils # 0.4 (0-0.7) k/uL Basophils # 0.1 (0-0.2) k/uL PT (9.0-12.0) sec INR (<1.2) APTT (22.0-30.0) sec Sodium 140 (137-145) mmol/L Potassium 5.4 H (3.5-5.1) mmol/L Chloride 102 (98-107) mmol/L Carbon Dioxide 31 H (22-30) mmol/L Anion Gap 7 mmol/L BUN 18 (9-20) mg/dL Creatinine 0.41 L (0.66-1.25) mg/dL Est GFR (CKD-EPI)AfAm >90 (>60 ml/min/1.73 sqM) Est GFR (CKD-EPI)NonAf >90 (>60 ml/min/1.73 sqM) Glucose 91 (74-99) mg/dL Plasma Lactic Acid Michael 1.2 (0.7-2.0) mmol/L Calcium 9.7 (8.4-10.2) mg/dL Total Bilirubin 0.3 (0.2-1.3) mg/dL AST 48 (17-59) U/L ALT 37 (21-72) U/L Alkaline Phosphatase 53 (38-126) U/L Troponin I (0.000-0.034) ng/mL NT-Pro-B Natriuret Pep pg/mL Total Protein 7.4 (6.3-8.2) g/dL Albumin 4.2 (3.5-5.0) g/dL Urine Color Urine Appearance (Clear) Urine pH (5.0-8.0) Ur Specific [place] (1.001-1.035) Urine Protein (Negative) Urine Glucose (UA) (Negative) Urine Ketones (Negative) Urine Blood (Negative) Urine Nitrite (Negative) Urine Bilirubin (Negative) Urine Urobilinogen (<2.0) mg/dL Ur Leukocyte Esterase (Negative) 04/17/19 04/17/19 04/17/19 Range/Units 18:10 18:10 18:10 WBC (3.8-10.6) k/uL RBC (4.30-5.90) m/uL Hgb (13.0-17.5) gm/dL Hct (39.0-53.0) % MCV (80.0-100.0) fL MCH (25.0-35.0) pg MCHC (31.0-37.0) g/dL RDW (11.5-15.5) % Plt Count (150-450) k/uL Neutrophils % % Lymphocytes % % Monocytes % % Eosinophils % % Basophils % % Neutrophils # (1.3-7.7) k/uL Lymphocytes # (1.0-4.8) k/uL Monocytes # (0-1.0) k/uL Eosinophils # (0-0.7) k/uL Basophils # (0-0.2) k/uL PT 9.7 (9.0-12.0) sec INR 0.9 (<1.2) APTT 23.2 (22.0-30.0) sec Sodium (137-145) mmol/L Potassium (3.5-5.1) mmol/L Chloride (98-107) mmol/L Carbon Dioxide (22-30) mmol/L Anion Gap mmol/L BUN (9-20) mg/dL Creatinine (0.66-1.25) mg/dL Est GFR (CKD-EPI)AfAm (>60 ml/min/1.73 sqM) Est GFR (CKD-EPI)NonAf (>60 ml/min/1.73 sqM) Glucose (74-99) mg/dL Plasma Lactic Acid Michael (0.7-2.0) mmol/L Calcium (8.4-10.2) mg/dL Total Bilirubin (0.2-1.3) mg/dL AST (17-59) U/L ALT (21-72) U/L Alkaline Phosphatase (38-126) U/L Troponin I <0.012 (0.000-0.034) ng/mL NT-Pro-B Natriuret Pep 63 pg/mL Total Protein (6.3-8.2) g/dL Albumin (3.5-5.0) g/dL Urine Color Urine Appearance (Clear) Urine pH (5.0-8.0) Ur Specific [place] (1.001-1.035) Urine Protein (Negative) Urine Glucose (UA) (Negative) Urine Ketones (Negative) Urine Blood (Negative) Urine Nitrite (Negative) Urine Bilirubin (Negative) Urine Urobilinogen (<2.0) mg/dL Ur Leukocyte Esterase (Negative) 04/17/19 Range/Units 18:10 WBC (3.8-10.6) k/uL RBC (4.30-5.90) m/uL Hgb (13.0-17.5) gm/dL Hct (39.0-53.0) % MCV (80.0-100.0) fL MCH (25.0-35.0) pg MCHC (31.0-37.0) g/dL RDW (11.5-15.5) % Plt Count (150-450) k/uL Neutrophils % % Lymphocytes % % Monocytes % % Eosinophils % % Basophils % % Neutrophils # (1.3-7.7) k/uL Lymphocytes # (1.0-4.8) k/uL Monocytes # (0-1.0) k/uL Eosinophils # (0-0.7) k/uL Basophils # (0-0.2) k/uL PT (9.0-12.0) sec INR (<1.2) APTT (22.0-30.0) sec Sodium (137-145) mmol/L Potassium (3.5-5.1) mmol/L Chloride (98-107) mmol/L Carbon Dioxide (22-30) mmol/L Anion Gap mmol/L BUN (9-20) mg/dL Creatinine (0.66-1.25) mg/dL Est GFR (CKD-EPI)AfAm (>60 ml/min/1.73 sqM) Est GFR (CKD-EPI)NonAf (>60 ml/min/1.73 sqM) Glucose (74-99) mg/dL Plasma Lactic Acid Michael (0.7-2.0) mmol/L Calcium (8.4-10.2) mg/dL Total Bilirubin (0.2-1.3) mg/dL AST (17-59) U/L ALT (21-72) U/L Alkaline Phosphatase (38-126) U/L Troponin I (0.000-0.034) ng/mL NT-Pro-B Natriuret Pep pg/mL Total Protein (6.3-8.2) g/dL Albumin (3.5-5.0) g/dL Urine Color Yellow Urine Appearance Clear (Clear) Urine pH 6.5 (5.0-8.0) Ur Specific [place] 1.010 (1.001-1.035) Urine Protein Negative (Negative) Urine Glucose (UA) Negative (Negative) Urine Ketones Negative (Negative) Urine Blood Negative (Negative) Urine Nitrite Negative (Negative) Urine Bilirubin Negative (Negative) Urine Urobilinogen <2.0 (<2.0) mg/dL Ur Leukocyte Esterase Negative (Negative) Disposition Clinical Impression: Cellulitis, Hyperkalemia Disposition: ADMITTED IP TO THIS HOSP Condition: Fair Is patient prescribed a controlled substance at d/c from ED?: No Referrals: [facility] [Primary Care Provider] - 1-2 days Time of Disposition: 19:55
[2019-04-17] MEDS ORDERED: cefTRIAXone IN SWFI 1,000 MG/10 ML SYRINGE IVP STA (17:53)
[2019-04-17] MEDS ORDERED: SODIUM CHLORIDE 0.9% 500 ML 500 ML IV SCH (18:00)
[2019-04-17 18:35] LABS: Appearance,Urine Clear (Clear); Bilirubin,Urine Negative (Negative); Blood,Urine Negative (Negative); Color,Urine Yellow; Glucose,Urine (UA) Negative (Negative); Ketones,Urine Negative (Negative); Leukocyte Esterase,Urine Negative (Negative); Nitrite,Urine Negative (Negative); PH, Urine 6.5 (5.0-8.0); Protein,Urine Negative (Negative); Urobilinogen,Urine <2.0 mg/dL (<2.0)
[2019-04-17 18:36] LABS: Basophils # (A) 0.1 k/uL (0-0.2); Basophils % (A) 1 %; Eosinophils # (A) 0.4 k/uL (0-0.7); Eosinophils % (A) 4 %; HCT 49.5 % (39.0-53.0); HGB 15.5 gm/dL (13.0-17.5); Lymphocytes # (A) 2.1 k/uL (1.0-4.8); Lymphocytes % (A) 24 %; MCH 30.4 pg (25.0-35.0); MCHC 31.3 g/dL (31.0-37.0); Mean Platelet Volume 7.9; Monocytes # (A) 0.8 k/uL (0-1.0); Monocytes % (A) 9 %; Neutrophils # (A) 5.2 k/uL (1.3-7.7); Neutrophils % (A) 59 %; Platelet Count 311 k/uL (150-450); RDW 15.4 % (11.5-15.5); WBC 8.7 k/uL (3.8-10.6)
[2019-04-17 18:42] LABS: INR 0.9 (<1.2); Partial Thromboplastin Time 23.2 sec (22.0-30.0); Prothrombin Time 9.7 sec (9.0-12.0)
[2019-04-17 18:43] LABS: ALT 37 U/L (21-72); AST 48 U/L (17-59); African American GFR (CKD) >90 (>60 ml/min/1.73 sqM); Albumin 4.2 g/dL (3.5-5.0); Alkaline Phosphatase 53 U/L (38-126); Anion Gap 7 mmol/L; Blood Urea Nitrogen 18 mg/dL (9-20); Calcium 9.7 mg/dL (8.4-10.2); Carbon Dioxide 31 mmol/L (22-30); Chloride 102 mmol/L (98-107); Glucose 91 mg/dL (74-99); Potassium 5.4 mmol/L (3.5-5.1); Sodium 140 mmol/L (137-145); Total Bilirubin 0.3 mg/dL (0.2-1.3); Total Protein 7.4 g/dL (6.3-8.2)
--- NOTE | 2019-04-17 19:13 | XR ---
EXAMINATION TYPE: XR chest 2V DATE OF EXAM: 04/17/2019 COMPARISON: 07/30/2012 HISTORY: Cellulitis TECHNIQUE: Frontal and lateral views of the chest are obtained. FINDINGS: There is some linear density in the left lower lobe. Heart size is normal. There are cardoso al wires. Costophrenic angles are clear. Bony thorax is intact. IMPRESSION: There is mild atelectasis at the left lung base. Chest is improved compared to old exam. Normal heart size.
--- NOTE | 2019-04-17 19:44 | XR ---
EXAMINATION TYPE: XR foot complete RT DATE OF EXAM: 04/17/2019 COMPARISON: NONE HISTORY: Foot redness and swelling TECHNIQUE: 3 views FINDINGS: There is soft tissue swelling of the forefoot. Metatarsals are intact. I see no fracture no r dislocation. There are no erosions. IMPRESSION: Soft tissue swelling. No specific sign of inflammatory arthritis.
[2019-04-17] MEDS ORDERED: VANCOMYCIN IV PER PHARMACY 1 EACH MISC MISCELLANE PRN (19:51)
[2019-04-17] MEDS ORDERED: VANCOMYCIN 1,500 MG in SODIUM CHLORIDE 0.9% 250 ML IVPB STA (19:54)
[2019-04-17] MEDS ORDERED: NALOXONE 0.4 MG/ML 1 ML VIAL IV PRN (19:56)
[2019-04-17] MEDS ORDERED: MORPHINE SULFATE 4 MG/ML SYRINGE IV PRN (19:56)
[2019-04-17] MEDS: SODIUM CHLORIDE 0.9% 1,000 ML IV SCH (20:48)
[2019-04-18] MEDS: ceFAZolin IN SWFI 2 GM/20 ML SYRINGE IVP SCH ×4 (00:02→22:00)
[2019-04-18] MEDS ORDERED: ALBUTEROL NEBULIZED 2.5 MG/3 ML INHALATION STA (04:00)
[2019-04-18] MEDS: LEVOTHYROXINE 88 MCG TAB PO SCH (06:11)
--- NOTE | 2019-04-18 06:49 | HP ---
HISTORY AND PHYSICAL DATE OF SERVICE: 04/17/2019 CHIEF COMPLAINTS: Pain and swelling of the right leg. HISTORY OF PRESENT ILLNESS: This 73-year-old gentleman with a past medical history of multiple medical problems including history of hypertension, hyperlipidemia, DJD, history of sleep apnea, history of CAD, CABG, stent, history of unknown neurological disorder, being followed by Dr. [facility] as well as Dr. Hood Alcantar in the outpatient setting slated to have an appointment at [facility], but however the patient is complaining of significant pain and swelling of the right leg, which the patient had about 2 weeks ago. Patient has significant pain and the patient came to [facility] and admitted for further evaluation and treatment. There is no history of any fever or rigors. No history of headache, loss of consciousness or seizures. PAST MEDICAL HISTORY: History of hypertension, hyperlipidemia, history of DJD, history of hypothyroidism, history of CAD, CABG, stent. MEDICATIONS: Home medications are: 1. Vitamin E, zinc, copper, lutein 1 p.o. b.i.d. 2. Coenzyme Q 100 mg p.o. daily. 3. Saw [place] 160 mg p.o. b.i.d. 4. Crestor 20 mg p.o. daily. 5. Omeprazole 20 mg daily. 6. Fish oil 1 p.o. daily. 7. Aleve 440 mg p.o. b.i.d. 8. Multivitamins one p.o. daily. 9. Milk thistle 150 mg p.o. daily. 10.Lopressor 25 mg p.o. b.i.d. 11.Zestril 20 mg p.o. b.i.d. 12.Synthroid 88 mcg p.o. daily. 13.Garlic 1 tablet p.o. daily. 14.Lasix 40 mg p.o. b.i.d. 15.Colace 100 mg p.o. daily. 16.Vitamin D3, 1000 units daily. 17.Ecotrin 162 mg p.o. daily. 18.Vitamin C 500 mg p.o. daily. 19.Keflex 500 mg p.o. q.i.d. 20.Aldactone 25 mg daily p.r.n. ALLERGIES: Allergies are BEE POLLEN, ATORVASTATIN. FAMILY HISTORY: History of cancer in the family. SOCIAL HISTORY: History of continued smoking. REVIEW OF SYSTEMS: ENT: Diminished hearing and diminished vision. CARDIOVASCULAR SYSTEM: No angina. RESPIRATORY SYSTEM: As mentioned earlier. GI: No nausea. : No dysuria. NERVOUS SYSTEM: No numbness or weakness. ALLERGY/IMMUNOLOGY: : No asthma or hayfever. MUSCULOSKELETAL: As mentioned earlier. HEMATOLOGY/ONCOLOGY: No history of anemia. ENDOCRINE: No history of diabetes mellitus. Hypothyroidism CONSTITUTIONAL: As mentioned earlier. DERMATOLOGY: Negative. RHEUMATOLOGY: Negative. PSYCHIATRY: As mentioned earlier. PHYSICAL EXAMINATION: The patient is alert and oriented x3. Pulse 56, blood pressure 141/70, respiration 18, temperature 97.9, pulse ox 96% on room air. HEENT: Conjunctivae normal. Oral mucosa moist. NECK: No jugular venous distention. No carotid bruit. No lymph node enlargement. CARDIOVASCULAR: S1, S2 muffled. RESPIRATORY: Breath sounds diminished at the bases. A few scattered rhonchi and crackles. ABDOMEN: Soft, obese, nontender. LEGS: Bilateral leg swelling with significant erythema, swelling and tenderness on the right leg present. Extensive cellulitis. NERVOUS SYSTEM: Higher functions as mentioned. Moves all 4 limbs. LYMPHATICS: No lymphadenopathy of the neck, axillae or groin. SKIN: No ulcer, rash or bleeding. JOINTS: No active deforming arthropathy. LABS: CBC within normal limits. Sodium 140 potassium 5.4. ASSESSMENT: 1. Acute cellulitis of the right leg. 2. Hyperkalemia, mild. 3. History of hypertension. 4. History of hyperlipidemia. 5. History of degenerative joint disease. 6. History of sleep apnea. 7. History of appendectomy. 8. History of coronary artery disease, CABG, stent. 9. Continued ongoing nicotine dependence. RECOMMENDATIONS AND DISCUSSION: This 73-year-old gentleman who presented with multiple medical problems, at this time will recommend broad-spectrum IV antibiotics otherwise infectious disease evaluation. Other than that, I would also recommend repeat labs to check for the potassium. Resume the home medications. Guarded prognosis because of multiple complex medical issues. Further recommendations to follow. A copy of dictation forwarded to Dr. Cavanaugh who is the primary physician. MMODL / IJN: [id number] /
[2019-04-18] MEDS ORDERED: VANCOMYCIN 1,500 MG in SODIUM CHLORIDE 0.9% 250 ML IVPB SCH (08:00)
[2019-04-18 08:13] LABS: Basophils # (A) 0.1 k/uL (0-0.2); Basophils % (A) 1 %; Eosinophils # (A) 0.4 k/uL (0-0.7); Eosinophils % (A) 4 %; HCT 45.8 % (39.0-53.0); HGB 14.1 gm/dL (13.0-17.5); Hypochromasia Slight; Lymphocytes # (A) 2.2 k/uL (1.0-4.8); Lymphocytes % (A) 25 %; MCH 30.3 pg (25.0-35.0); MCHC 30.7 g/dL (31.0-37.0); MCV 98.6 fL (80.0-100.0); Mean Platelet Volume 7.1; Monocytes # (A) 0.7 k/uL (0-1.0); Monocytes % (A) 8 %; Neutrophils # (A) 5.3 k/uL (1.3-7.7); Neutrophils % (A) 60 %; Platelet Count 307 k/uL (150-450); RBC 4.64 m/uL (4.30-5.90); RDW 13.6 % (11.5-15.5)
[2019-04-18 08:21] LABS: African American GFR (CKD) >90 (>60 ml/min/1.73 sqM); Anion Gap 3 mmol/L; Blood Urea Nitrogen 15 mg/dL (9-20); Calcium 8.8 mg/dL (8.4-10.2); Carbon Dioxide 32 mmol/L (22-30); Chloride 108 mmol/L (98-107); Glucose 130 mg/dL (74-99); Potassium 4.8 mmol/L (3.5-5.1); Sodium 143 mmol/L (137-145)
[2019-04-18] MEDS: CHOLECALCIFEROL 1,000 UNIT TAB PO SCH (08:27)
[2019-04-18] MEDS: PANTOPRAZOLE 40 MG TABLET PO SCH (08:27)
[2019-04-18] MEDS: ASCORBIC ACID 500 MG TAB PO SCH (08:27)
[2019-04-18] MEDS: METOPROLOL TARTRATE 25 MG TAB PO SCH ×2 (08:27→21:50)
[2019-04-18] MEDS: DOCUSATE 100 MG CAP PO SCH (08:27)
[2019-04-18] MEDS: ASPIRIN 81 MG PO SCH (08:27)
[2019-04-18] MEDS: MULTIVITAMINS, THERA 1 EACH TAB PO SCH (08:27)
[2019-04-18] MEDS ORDERED: NON-FORMULARY DRUG (Milk Thistle [Milk Thistle] 150 MG) PO SCH (09:00)
[2019-04-18] MEDS ORDERED: NON-FORMULARY DRUG (Omega-3 Fatty Acids/Fish Oil [Fish Oil 1,000 Mg Softgel] 1 CAP) PO SCH (09:00)
[2019-04-18] MEDS ORDERED: FUROSEMIDE 40 MG TAB PO SCH (09:00)
[2019-04-18] MEDS ORDERED: NON-FORMULARY DRUG (Vit C/E/Zn/Coppr/Lutein/Zeaxan [Preservision Areds 2 Softgel] 1 CAP) PO SCH (09:00)
[2019-04-18] MEDS ORDERED: NON-FORMULARY DRUG (Saw Palmetto [Saw Palmetto] 160 MG) PO SCH (09:00)
[2019-04-18] MEDS ORDERED: NON-FORMULARY DRUG (Ubidecarenone [Co Q-10] 100 MG) PO SCH (09:00)
[2019-04-18] MEDS: FUROSEMIDE 10 MG/ML 4 ML VIAL IV SCH (17:53)
--- NOTE | 2019-04-18 18:10 | US ---
EXAMINATION TYPE: US venous doppler duplex LE DATE OF EXAM: 04/18/2019 5:58 PM COMPARISON: NONE CLINICAL HISTORY: dvt. R/O DVT. Bilateral leg swelling. No hx of DVT. Pt takes aspirin. Hx bilat vein stripping. SIDE PERFORMED: Bilateral TECHNIQUE: The lower extremity deep venous system is examined utilizing real time linear array sonog michele with graded compression, doppler sonography and color-flow sonography. VESSELS IMAGED: External Iliac Vein (EIV) Common Femoral Vein Deep Femoral Vein Greater Saphenous Vein * Femoral Vein Popliteal Vein Small Saphenous Vein * Proximal Calf Veins (* superficial vessels) Right Leg: Negative for DVT. Severe calf edema obscures visualization of distal calf veins. Left Leg: Negative for DVT. Severe calf edema obscures visualization of distal calf veins. IMPRESSION: No evidence of deep venous thrombosis in both legs. No free fluid. Subcutaneous edema.
[2019-04-18] MEDS: SODIUM CHLORIDE 0.9% 1,000 ML IV SCH (19:42)
--- NOTE | 2019-04-18 20:39 | PN ---
PROGRESS NOTE DATE OF SERVICE: 04/18/2019. This 73-year-old gentleman was admitted with acute cellulitis of the right leg and bilateral leg edema, is being closely monitored. No chest pain. No palpitations. The patient started on IV antibiotics. Cultures are negative at this time. PAST MEDICAL HISTORY: Reviewed. REVIEW OF SYSTEMS: CARDIOVASCULAR: No angina or palpitations. RESPIRATION: As mentioned earlier. GI: As mentioned earlier. : No dysuria. CENTRAL NERVOUS SYSTEM: No focal deficits. CURRENT MEDICATIONS: Reviewed and include: 1. Vitamin C 500 mg. 2. Aspirin 160 mg. 3. Kefzol 2 g IV daily. 4. Vitamin D3. 5. Colace 100 mg. 6. Lasix 40 mg p.o. b.i.d. 7. Synthroid 18 mcg p.o. daily. 8. Lopressor 25 mg p.o. b.i.d. 9. Morphine sulfate 4 mg q.4 p.r.n. 10.Multivitamins one p.o. daily. 11.Narcan 0.2 q.2h p.r.n. 13.Protonix 40 mg daily. PHYSICAL EXAM: Alert and oriented x3. Pulse 60, blood pressure 115/60, respiration 18, temperature 97.2, pulse ox 94% on room air. HEENT: Conjunctivae normal. NECK: No jugular venous distention. CARDIOVASCULAR systems: Breath sounds diminished in the bases. Scattered rhonchi and crackles. ABDOMEN soft. LEGS: Right leg edema present. NERVOUS SYSTEM: No focal deficits. LABS: WBC 9, hemoglobin 14.2, sodium 140, potassium 3.8. ASSESSMENT: 1. Acute cellulitis of the right leg present on admission. 2. Bilateral leg swelling. 3. Rule out congestive heart failure. 4. Hyperkalemia mild. 5. Hypertension. 6. History of degenerative joint disease. 7. Sleep apnea. 8. History of appendectomy. 9. History of coronary artery disease, coronary artery bypass grafting/stent. 10.History of continued ongoing nicotine abuse. RECOMMENDATIONS AND DISCUSSION: Recommend to continue current medications, management. I recommend a BNP and a 2D echo with Doppler. Otherwise, BNP 60. 2D echo with Doppler will be ordered. Empirically treat with IV Lasix. Continue with antibiotics. Guarded prognosis because of multiple complex medical issues. Further recommendations to follow. We will stop the IV fluids. I would also recommend fluid restriction about 1500 mL per 24 hours. See orders for details. Other symptomatic treatment will be offered and as well as DVT prophylaxis. Further recommendations to follow. MANUELA / AMANDAN: [id number] / SLIM
[2019-04-18] MEDS: HEPARIN SODIUM,PORCINE 5,000 UNIT/ML 1 ML VIAL SQ SCH (21:49)
[2019-04-19] MEDS: FUROSEMIDE 10 MG/ML 4 ML VIAL IV SCH ×4 (00:08→23:32)
[2019-04-19 07:52] LABS: Basophils # (A) 0.1 k/uL (0-0.2); Basophils % (A) 1 %; Eosinophils # (A) 0.4 k/uL (0-0.7); Eosinophils % (A) 4 %; HCT 47.7 % (39.0-53.0); HGB 14.7 gm/dL (13.0-17.5); Hypochromasia Slight; Lymphocytes # (A) 2.5 k/uL (1.0-4.8); Lymphocytes % (A) 30 %; MCH 30.2 pg (25.0-35.0); MCHC 30.7 g/dL (31.0-37.0); MCV 98.2 fL (80.0-100.0); Mean Platelet Volume 7.8; Monocytes # (A) 0.7 k/uL (0-1.0); Monocytes % (A) 9 %; Neutrophils # (A) 4.5 k/uL (1.3-7.7); Neutrophils % (A) 53 %; Platelet Count 301 k/uL (150-450); RBC 4.86 m/uL (4.30-5.90); RDW 14.9 % (11.5-15.5); WBC 8.5 k/uL (3.8-10.6)
[2019-04-19 08:02] LABS: African American GFR (CKD) >90 (>60 ml/min/1.73 sqM); Anion Gap 3 mmol/L; Blood Urea Nitrogen 12 mg/dL (9-20); Calcium 9.5 mg/dL (8.4-10.2); Carbon Dioxide 38 mmol/L (22-30); Chloride 101 mmol/L (98-107); Glucose 82 mg/dL (74-99); Potassium 5.3 mmol/L (3.5-5.1); Sodium 142 mmol/L (137-145)
[2019-04-19] MEDS: LEVOTHYROXINE 88 MCG TAB PO SCH (08:04)
[2019-04-19] MEDS: ceFAZolin IN SWFI 2 GM/20 ML SYRINGE IVP SCH ×3 (08:04→23:32)
[2019-04-19] MEDS: PANTOPRAZOLE 40 MG TABLET PO SCH (08:04)
[2019-04-19] MEDS: HEPARIN SODIUM,PORCINE 5,000 UNIT/ML 1 ML VIAL SQ SCH ×2 (11:02→20:03)
[2019-04-19] MEDS: CHOLECALCIFEROL 1,000 UNIT TAB PO SCH (11:03)
[2019-04-19] MEDS: METOPROLOL TARTRATE 25 MG TAB PO SCH ×2 (11:03→20:03)
[2019-04-19] MEDS: ASCORBIC ACID 500 MG TAB PO SCH (11:03)
[2019-04-19] MEDS: DOCUSATE 100 MG CAP PO SCH (11:03)
[2019-04-19] MEDS: MULTIVITAMINS, THERA 1 EACH TAB PO SCH (11:03)
[2019-04-19] MEDS: ASPIRIN 81 MG PO SCH (11:03)
--- NOTE | 2019-04-19 11:53 | ECHOF ---
Referral Reason:chf MEASUREMENTS -------- HEIGHT: 180.3 cm WEIGHT: 81.6 kg BP: 137/77 IVSd: 1.0 cm (0.6 - 1.1) LVIDd: 4.5 cm (3.9 - 5.3) LVPWd: 1.0 cm (0.6 - 1.1) IVSs: 1.5 cm LVIDs: 1.3 cm LVPWs: 1.4 cm LAESV Index (A-L): 20.61 ml/m Ao Diam: 3.2 cm (2.0 - 3.7) AV Cusp: 2.2 cm (1.5 - 2.6) LA Diam: 3.9 cm (2.7 - 3.8) MV EXCURSION: 19.544 mm (> 18.000) MV EF SLOPE: 99 mm/s (70 - 150) EPSS: 2.8 cm MV E Brigido: 0.58 m/s MV DecT: 227 ms MV A Brigido: 0.60 m/s MV E/A Ratio: 0.98 RAP: 5.00 mmHg RVSP: 16.18 mmHg FINDINGS -------- Sinus rhythm with extra systolic beats. This was a technically difficult study with suboptimal views. The left ventricular size is normal. Left ventricular wall thickness is normal. Overall left vent ricular systolic function is mildly impaired with, an EF between 45 - 50 %. There is evidence of pa radoxical septal motion. The diastolic filling pattern is normal for the age of the patient 7.05. The RV was not well visualized. The left atrial size is normal. Normal LA size by volume 22+/-6 ml/m2. The right atrial size is normal. Lumason used The aortic valve is trileaflet and appears structurally normal. There is trace mitral regurgitation. Trace tricuspid regurgitation present. Right ventricular systolic pressure is normal at < 35 mmHg. There is no pulmonic regurgitation present. The aortic root size is normal. IVC Not well visulized. There is no pericardial effusion. CONCLUSIONS -------- 1. Sinus rhythm with extra systolic beats. 2. This was a technically difficult study with suboptimal views. 3. The left ventricular size is normal. 4. Left ventricular wall thickness is normal. 5. Overall left ventricular systolic function is mildly impaired with, an EF between 45 - 50 %. 6. There is evidence of paradoxical septal motion. 7. The diastolic filling pattern is normal for the age of the patient 7.05 8. The RV was not well visualized. 9. The left atrial size is normal. 10. Normal LA size by volume 22+/-6 ml/m2. 11. The right atrial size is normal. 12. Lumason used 13. The aortic valve is trileaflet and appears structurally normal. 14. There is trace mitral regurgitation. 15. Trace tricuspid regurgitation present. 16. Right ventricular systolic pressure is normal at < 35 mmHg. 17. There is no pulmonic regurgitation present. 18. The aortic root size is normal. 19. IVC Not well visulized. 20. There is no pericardial effusion. TRACTOR SWEEPER DRIVER: Paola Ugarte RDCS
[2019-04-20] MEDS: ceFAZolin IN SWFI 2 GM/20 ML SYRINGE IVP SCH ×3 (06:14→22:56)
[2019-04-20] MEDS: LEVOTHYROXINE 88 MCG TAB PO SCH (06:14)
[2019-04-20 07:33] LABS: Basophils # (A) 0.1 k/uL (0-0.2); Basophils % (A) 1 %; Eosinophils # (A) 0.3 k/uL (0-0.7); Eosinophils % (A) 4 %; HCT 51.3 % (39.0-53.0); HGB 15.7 gm/dL (13.0-17.5); Hypochromasia Slight; Lymphocytes # (A) 2.3 k/uL (1.0-4.8); Lymphocytes % (A) 26 %; MCH 29.7 pg (25.0-35.0); MCHC 30.5 g/dL (31.0-37.0); MCV 97.4 fL (80.0-100.0); Mean Platelet Volume 7.2; Monocytes # (A) 0.8 k/uL (0-1.0); Monocytes % (A) 9 %; Neutrophils # (A) 5.2 k/uL (1.3-7.7); Neutrophils % (A) 57 %; Platelet Count 339 k/uL (150-450); RBC 5.27 m/uL (4.30-5.90); RDW 13.7 % (11.5-15.5); WBC 9.1 k/uL (3.8-10.6)
[2019-04-20] MEDS: MULTIVITAMINS, THERA 1 EACH TAB PO SCH (07:38)
[2019-04-20] MEDS: DOCUSATE 100 MG CAP PO SCH (07:38)
[2019-04-20] MEDS: ASCORBIC ACID 500 MG TAB PO SCH (07:38)
[2019-04-20] MEDS: ASPIRIN 81 MG PO SCH (07:38)
[2019-04-20] MEDS: PANTOPRAZOLE 40 MG TABLET PO SCH (07:39)
[2019-04-20] MEDS: CHOLECALCIFEROL 1,000 UNIT TAB PO SCH (07:39)
[2019-04-20] MEDS: FUROSEMIDE 10 MG/ML 4 ML VIAL IV SCH ×3 (07:41→22:56)
[2019-04-20] MEDS: METOPROLOL TARTRATE 25 MG TAB PO SCH (07:41)
[2019-04-20] MEDS: HEPARIN SODIUM,PORCINE 5,000 UNIT/ML 1 ML VIAL SQ SCH (07:41)
[2019-04-20 08:01] LABS: African American GFR (CKD) >90 (>60 ml/min/1.73 sqM); Anion Gap 6 mmol/L; Blood Urea Nitrogen 18 mg/dL (9-20); Calcium 9.1 mg/dL (8.4-10.2); Carbon Dioxide 34 mmol/L (22-30); Chloride 101 mmol/L (98-107); Glucose 91 mg/dL (74-99); Potassium 3.9 mmol/L (3.5-5.1); Sodium 141 mmol/L (137-145)
[2019-04-20] MEDS: IOPAMIDOL-300 CONTRAST 30 ML VIAL (ORAL USE) PO PRN ×2 (08:29→09:37)
--- NOTE | 2019-04-20 08:29 | PN ---
PROGRESS NOTE DATE OF SERVICE: 04/19/2019. This 73-year-old gentleman who was admitted with acute cellulitis of the right leg, is on IV antibiotics. Patient also had bilateral leg swelling also. The venous ultrasound was done which showed no evidence of DVT. Severe calf edema is visualized and a 2D echo with Doppler was also done which showed ejection fraction about 45-50 percent with mild impairment. The patient NT proBNP is only 63. PAST MEDICAL HISTORY: Reviewed. REVIEW OF SYSTEMS: CARDIOVASCULAR: No angina. RESPIRATION as mentioned earlier. GI: As mentioned earlier. CENTRAL NERVOUS SYSTEM: No numbness or weakness. CURRENT MEDICATIONS: Reviewed and include: 1. Vitamin C 500 mg daily. 2. Aspirin 160 mg daily. 3. Kefzol 2 mg q.8 p.r.n. 4. Vitamin D3. 5. Lasix 40 mg IV q.8h. 6. Heparin. 7. Synthroid. 8. Lopressor. 9. Multivitamins. 10.Narcan. 12.Protonix 40 mg p.o. daily. PHYSICAL EXAM: Patient alert and oriented x3. Pulse is 60, blood pressure 130/75. Respiration 16, temperature 97.2, pulse ox 91 percent on room air. HEENT: Conjunctivae normal., NECK: No JVD. RESPIRATION: Breath sounds diminished in the bases. Bilateral scattered rhonchi and crackles. ABDOMEN: Soft, obese, nontender. LEGS: Bilateral leg edema. NERVOUS SYSTEM: No focal deficits. LABS: WBC 8.2, hemoglobin 14.7. Otherwise sodium 142, potassium 5.3. LFTs are normal. ASSESSMENT: 1. Bilateral cellulitis, more on the right leg, severe. 2. Bilateral leg swelling. 3. Congestive heart failure with chronic systolic dysfunction, ejection fraction 45-50 percent. 4. Hyperkalemia, mild. 5. Hypertension. 6. History of degenerative joint disease. 7. History of sleep apnea. 8. History of appendectomy. 9. History of coronary artery disease, coronary artery bypass grafting/stent. 10.History of continued ongoing nicotine dependence. RECOMMENDATIONS AND DISCUSSION: Recommend to continue current medications, management and symptomatic treatment. Continue with broad-spectrum IV antibiotics. I would also recommend cardiology consultation and as well as infectious disease evaluation. Guarded prognosis because of multiple complex medical issues. See orders for further details. I would also recommend a CT scan of the abdomen and pelvis also to complete the workup at this time. MMODL / IJN: [id number] / SLIM
--- NOTE | 2019-04-20 10:43 | CT ---
EXAMINATION TYPE: CT abdomen pelvis wo con DATE OF EXAM: 04/20/2019 COMPARISON: None HISTORY: Leg edema, abdominal distention CT DLP: 660.3 mGycm Automated exposure control for dose reduction was used. TECHNIQUE: Helical acquisition of images was performed from the lung bases through the pelvis. FINDINGS: LUNG BASES: Subsegmental consolidation involving both lung bases. Calcified granuloma right lung. Cor onary artery calcification noted. Heart appears enlarged. Sternotomy wires noted. Atherosclerotic antonia nge aorta. LIVER/GB: No significant abnormality is appreciated. PANCREAS: No significant abnormality is seen. SPLEEN: Small splenule noted in the left upper quadrant. Spleen largely absent. ADRENALS: Nonspecific bilateral adrenal gland thickening. KIDNEYS: There is a hyperdense 1 cm lesion involving the anterior margin midpole left kidney and uppe r pole left kidney measuring 7 mm. These do not meet the criteria of simple cyst. Hemorrhagic cyst in the differential. Solid neoplasm not excluded. Recommend MRI. ADENOPATHY: None visualized. OSSEOUS STRUCTURES: Hypertrophic and degenerative change of the spine with postsurgical changes note d. BOWEL: Extensive retained fecal debris throughout the colon correlate for constipation. OTHER: Atherosclerotic change aorta. No evidence of aneurysm. Prostate gland is enlarged. IMPRESSION: 1. HYPERDENSE LESIONS INVOLVING THE KIDNEY ON THE LEFT MAY BE RELATED TO HEMORRHAGIC CYST. SOLID NEOP LASM NOT EXCLUDED RECOMMEND FOLLOW-UP MRI. 2. NONSPECIFIC GAS PATTERN WITH EXTENSIVE RETAINED FECAL DEBRIS RESULTING IN DILATED COLON. THERE ANGEL S APPEAR TO BE AREA OF NARROWING IN THE COLON AT THE LEVEL OF THE SIGMOID COLON. THIS COULD BE TRANSI ENT RELATED TO INCOMPLETE DISTENTION RATHER THAN MUCOSAL LESION. FOLLOW-UP POST FOLLOWING EVACUATION RECOMMENDED OR CONSIDER COLONOSCOPY. 3. PROSTATE HYPERTROPHY. 4. LUCENT LESION INVOLVING THE T11 VERTEBRAL BODY TO SMALL TO CHARACTERIZE. FOLLOW-UP WITH SHORT-TERM FOLLOW-UP BONE SCAN.
[2019-04-20] MEDS ORDERED: DILTIAZEM DRIP BOLUS FROM BAG 1 MG SOLN IV ONE (12:26)
[2019-04-20] MEDS ORDERED: APIXABAN 5 MG TAB PO SCH (12:30)
[2019-04-20] MEDS ORDERED: HEPARIN SODIUM,PORCINE 5,000 UNIT/ML 1 ML VIAL IV PRN (12:32)
[2019-04-20] MEDS ORDERED: HEPARIN SOD,PORK IN 0.45% NACL 25,000 UNIT in 0.45% NACL 1 250ML.BAG IV SCH (12:45)
[2019-04-20 12:54] LABS: Basophils % (A) 0 %; Eosinophils # (A) 0.2 k/uL (0-0.7); Eosinophils % (A) 2 %; HCT 52.8 % (39.0-53.0); HGB 15.9 gm/dL (13.0-17.5); Hypochromasia Slight; Lymphocytes # (A) 2.4 k/uL (1.0-4.8); Lymphocytes % (A) 22 %; MCH 29.8 pg (25.0-35.0); MCHC 30.2 g/dL (31.0-37.0); MCV 98.5 fL (80.0-100.0); Monocytes # (A) 0.7 k/uL (0-1.0); Monocytes % (A) 6 %; Neutrophils # (A) 7.3 k/uL (1.3-7.7); Neutrophils % (A) 67 %; Platelet Count 327 k/uL (150-450); RBC 5.36 m/uL (4.30-5.90); RDW 13.6 % (11.5-15.5); WBC 10.9 k/uL (3.8-10.6)
--- NOTE | 2019-04-20 12:58 | CONS ---
CONSULTATION Mr. Fajardo is a 73-year-old male with known history of coronary artery disease status post redo bypass followed on a regular basis by Dr. Shelly Figueredo who presented with symptoms of progressive dyspnea, edema and possible cellulitis. Cardiology consultation was requested because of tachycardia. The patient is unaware of the arrhythmia. He felt slightly dizzy. He has no chest discomfort. He has no clear PND or orthopnea. He has been having the peripheral edema for the last week. He has according to him no documented tachy arrhythmia. He has been followed on a regular basis by Dr. Shelly Figueredo and had no recent cardiac abnormalities according to him. I do not have the report of his prior workup. His coronary risk factors are remarkable for hypertension, hyperlipidemia and smoking. He is nondiabetic. MEDICATION: Include Crestor 20 mg daily, metoprolol tartrate 25 mg twice a day, Zestril 20 mg twice a day, Lasix 40 mg twice a day, aspirin once a day and Aldactone 25 mg daily. REVIEW OF SYSTEMS: RESPIRATORY SYSTEM: He had dyspnea on exertion. No recent wheezing or cough. GI system no recent GI bleed. No peptic ulcer disease. system: No dysuria or hematuria. NERVOUS SYSTEM: No stroke or seizure. PHYSICAL EXAMINATION: He is a 73-year-old male, alert, oriented, no apparent distress. Blood pressure running in the 100s with a heart rate in the 130s. HEAD: Normocephalic. Eyes: Sclerae anicteric. NECK: No bruit. LUNGS are clear to auscultation. HEART: Tachycardic S1, S2. No S3 with systolic murmur heard at the base. No diastolic murmur. No rub. ABDOMEN: Soft, nontender. Positive bowel sounds. No organomegaly. EXTREMITIES: +2 edema. LAB DATA: Lab data revealed BUN and creatinine of 18 and 0.47, potassium 3.9, hemoglobin of 15.7, white blood cell of 9.1. Troponin less than 0.012 and NT proBNP of 63. Initial EKG revealed a sinus mechanism, normal axis and intervals, rate of [address]-T wave changes. He had an echocardiogram performed yesterday that showed a preserved ejection fraction 45% to 50%. He had a duplex scan of the lower extremities revealed no evidence of deep venous thrombosis. Abdominal CT revealed a hyperdense lesion involving the kidney, could be hemorrhagic cyst, a solid neoplasm cannot be excluded. Prostate hypertrophy was noted. Chest x-ray revealed no acute changes. Repeat EKG done today when he was noted to be tachycardic, showed a rate of 127 with what appears to be atrial flutter with 2:[address]-T wave changes. IMPRESSION: 1. Atrial flutter with 2:1 conduction. 2. History of coronary artery disease status post redo coronary bypass grafting. 3. Peripheral edema with normal NT proBNP, and no evidence of DVT. 4. History of hypertension. 5. Chronic tobacco use. 6. Hyperlipidemia. RECOMMENDATION: From the cardiac standpoint, I will initiate treatment with IV Cardizem as well as anticoagulation. Because of the abnormality on the CT scan, I will hold on oral anticoagulation for now. The dose of his beta amber will be adjusted. Depending on his progress, further recommendation will be made. I will re-initiate the treatment with the Aldactone that he was on. Thank you for this consult. We will follow with you. MANUELA / AMANDAN: [id number] /
[2019-04-20 13:10] LABS: INR 0.9 (<1.2); Partial Thromboplastin Time 24.5 sec (22.0-30.0); Prothrombin Time 10.1 sec (9.0-12.0)
[2019-04-20] MEDS: SPIRONOLACTONE 25 MG TAB PO SCH (14:09)
[2019-04-20] MEDS: DILTIAZEM 125 MG in SODIUM CHLORIDE 0.9% 100 ML IV SCH (14:10)
[2019-04-20 14:29] LABS: T4, Free (Free Thyroxine) 1.3 ng/dL (0.78-2.19)
[2019-04-20 16:53] LABS: Glucose,Whole Blood 107 mg/dL (75-99)
--- NOTE | 2019-04-20 18:04 | PN ---
PROGRESS NOTE DATE OF SERVICE: 04/20/2019. This 73-year-old gentleman who was admitted with acute bilateral cellulitis is being closely monitored. The patient also had bilateral leg swelling. 2-D echo showed low ejection fraction. CT scan of the abdomen showed possibly hemorrhagic renal cyst, prostate hypertrophy and lucent lesion involving the T11 vertebra. No chest pain. No palpitations. No fever. Cardiology has seen the patient and recommended IV Cardizem and transferred to telemetry. PAST MEDICAL HISTORY: Reviewed. REVIEW OF SYSTEMS: CARDIOVASCULAR SYSTEM: As mentioned earlier. RESPIRATORY: As mentioned earlier. GI no nausea or vomiting. : As mentioned earlier. CENTRAL NERVOUS SYSTEM: No focal deficits. CURRENT MEDICATIONS: Reviewed and include: 1. Vitamin C 500 mg daily. 2. Aspirin 81 mg. 3. Vitamin D3. 4. Cardizem drip. 5. Colace. 6. Lasix 40 mg IV daily. 7. Heparin. 8. Synthroid. 9. Lopressor. 10.Morphine sulfate. 11.Narcan. 12.Protonix. 13.Aldactone. PHYSICAL EXAM: Patient is alert, oriented x3. Pulse is 132. Blood pressure is 108/69, respiration 15. Temperature 98.2, pulse ox 94% on 2 L. HEENT: Conjunctivae normal. NECK: No JVD. CARDIAC: Tachycardic. RESPIRATION: Breath sounds diminished in the bases. A few scattered rhonchi and crackles. ABDOMEN: Soft, nontender. LEGS are no edema. No swelling. CENTRAL NERVOUS SYSTEM: No focal deficits. LAB STUDIES: WBC 10.1, hemoglobin 15.9, and TSH is 7.38, free T4 is 1.30. ASSESSMENT: 1. Bilateral leg cellulitis right more than the left, severe. 2. Bilateral leg swelling, possible congestive heart failure acute exacerbation, acute on chronic systolic dysfunction EF 45-50 percent. 3. Tachycardia with possibly atrial flutter 2:1 AV block. 4. History of coronary artery disease, coronary artery bypass grafting stent. 5. Multiple abnormalities in the CT scan showed hyperdense lesion in the kidney, suspect hemorrhagic cyst and nonspecific gas pattern, prostatic hypertrophy and lucent lesion of the T1 vertebra requires outpatient followup and evaluation. 6. Hyperkalemia, mild. 7. Hypertension. 8. History of degenerative joint disease. 9. History of sleep apnea. 10.History of appendectomy. 11.History of coronary artery disease, coronary artery bypass grafting stent. 12.History of continued ongoing nicotine dependence. RECOMMENDATIONS AND DISCUSSION: Recommend to continue current medications, management and symptomatic treatment. Continue with Cardizem. Transfer to telemetry. Closely follow with Cardiology. Avoid anticoagulation because of concerns of hemorrhagic cyst at this time. Otherwise, prognosis guarded because of multiple complex medical issues. Further recommendations to follow. See orders for details. MMODL / IJN: [id number] /
[2019-04-20] MEDS: METOPROLOL TARTRATE 50 MG TAB PO SCH (20:08)
[2019-04-20 21:15] LABS: Glucose,Whole Blood 107 mg/dL (75-99)
--- NOTE | 2019-04-20 22:51 | P.CONS ---
History of Present Illness - Reason for Consult Consult date: 04/20/19 Bilateral lower extremity cellulitis Requesting physician: Kash Tsai - Chief Complaint Bilateral leg swelling and redness x 1 week - History of Present Illness Patient is a 73-year-old male presenting to the ER at [facility] on 04/17/2019 with a chief complaints of bilateral extremity swelling and redness currently symptom has been going on for more than a week and has been treated in outpatient setting with oral Keflex however the patient did have persistent swelling and redness to the leg and the patient was advised to go to the hospital by his primary care physician on the wound to the patient did have bilateral lower extremity Dopplers those were negative for DVT who did show significant soft tissue swelling patient did have diffuse swelling to both legs as well as redness and mild dull aching pain on presentation intensity about 5-1 0 and no radiation no open wound or any drainage the patient has been started on cefazolin 2 g every 8 hours infection is concerned [place] for further recommendation regarding antibiotic therapy patient currently denies having any fever or any chills lower extremity swelling and redness has improved patient denies having any chest pain shortness of breath or cough no abdominal pain no nausea no vomiting and no diarrhea Review of Systems Positive points has been mentioned in HPI rest of the systems negative Past Medical History Past Medical History: Hyperlipidemia, Hypertension, Osteoarthritis (OA), Sleep Apnea/CPAP/BIPAP, Thyroid Disorder Additional Past Medical History / Comment(s): DDD, bulging discs, probable sleep apnea History of Any Multi-Drug Resistant Organisms: None Reported Past Surgical History: Appendectomy, Coronary Bypass/CABG, Heart Catheterization, Heart Catheterization With Stent, Orthopedic Surgery Additional Past Surgical History / Comment(s): CABG x2-last 2010, splenectomy, left shoulder surg., cervical fusion Past Anesthesia/Blood Transfusion Reactions: No Reported Reaction Additional Past Anesthesia/Blood Transfusion Reaction / Comm: states took 9 days to come off vent. after last open heart surg-he's not sure why Date of Last Stent Placement:: unknown Past Psychological History: No Psychological Hx Reported Smoking Status: Current every day smoker Past Alcohol Use History: None Reported Additional Past Alcohol Use History / Comment(s): down to <ppd, has smoked since age of 16 Past Drug Use History: None Reported - Past Family History Sister(s) Family Medical History: Cancer Medications and Allergies Home Medications Medication Instructions Recorded Confirmed Type Ascorbic Acid [Vitamin C] 500 mg PO DAILY 05/13/17 04/17/19 History Cholecalciferol [Vitamin D3] 1,000 unit PO DAILY 05/13/17 04/17/19 History Furosemide [Lasix] 40 mg PO BID 05/13/17 04/17/19 History Garlic 1 tab PO DAILY 05/13/17 04/17/19 History Levothyroxine Sodium [Synthroid] 88 mcg PO DAILY 05/13/17 04/17/19 History Metoprolol Tartrate [Lopressor] 25 mg PO BID 05/13/17 04/17/19 History Multivitamin [Men's Multi-Vitamin] 1 tab PO DAILY 05/13/17 04/17/19 History [place]-3 Fatty Acids/Fish Oil [Fish 1 cap PO DAILY 05/13/17 04/17/19 History Oil 1,000 mg Softgel] Aspirin [Klein Aspirin EC] 162 mg PO DAILY 04/17/19 04/17/19 History Cephalexin [Keflex] 500 mg PO QID 04/17/19 04/17/19 History Docusate [Colace] 100 mg PO DAILY 04/17/19 04/17/19 History Lisinopril [Zestril] 20 mg PO BID 04/17/19 04/17/19 History Milk Thistle 150 mg PO DAILY 04/17/19 04/17/19 History Naproxen Sodium [Aleve] 440 mg PO BID 04/17/19 04/17/19 History Omeprazole 20 mg PO DAILY 04/17/19 04/17/19 History Rosuvastatin [Crestor] 20 mg PO DAILY 04/17/19 04/17/19 History Saw [place] 160 mg PO BID 04/17/19 04/17/19 History Spironolactone [Aldactone] 25 mg PO DAILY PRN 04/17/19 04/17/19 History Ubidecarenone [Co Q-10] 100 mg PO DAILY 04/17/19 04/17/19 History Vit C/E/Zn/Coppr/Lutein/Zeaxan 1 cap PO BID 04/17/19 04/17/19 History [Preservision Areds 2 Softgel] Allergies Allergy/AdvReac Type Severity Reaction Status Date / Time bee pollen Allergy Anaphylaxis Verified 04/17/19 17:38 atorvastatin AdvReac muscle Verified 04/17/19 17:38 cramps Physical Exam Vitals: Vital Signs Temp Pulse Resp BP Pulse Ox 04/20/19 20:07 85/58 04/20/19 19:10 98.1 F 70 18 93/57 93 L 04/20/19 16:00 97.9 F 68 18 108/63 93 L 04/20/19 13:35 98.3 F 128 H 18 91/70 93 L 04/20/19 08:33 132 H 04/20/19 07:34 124 H 100/69 04/20/19 07:00 98.3 F 128 H 15 96/68 94 L 04/20/19 00:00 66 17 04/19/19 23:00 98.5 F 55 L 17 114/65 94 L Intake and Output 04/20/19 04/20/19 04/20/19 06:59 14:59 22:59 Intake Total 420 182.544 Output Total 900 200 Balance -900 420 -17.456 Intake: Intake, IV Titration 62.544 Amount Heparin Sod,Pork in 0.45% 62.544 NaCl 25,000 unit In 0.45 % NaCl 1 250ml.bag @ 12 UNITS/KG/HR 9.798 mls/hr IV .Q24H [facility] Rx#: [id number] Oral 420 120 Output: Urine 900 200 Other: Voiding Method Urinal Urinal Urinal # Voids 3 # Bowel Movements 0 GENERAL DESCRIPTION: An elderly male lying in bed, no distress. No tachypnea or accessory muscle of respiration use. HEENT: Shows Pallor , no scleral icterus. Oral mucous membrane is dry. No pharyngeal erythema or thrush NECK: Trachea central, no thyromegaly. LUNGS: Unlabored breathing. Decreased breath sound at the base. No wheeze or c rackle. HEART: S1, S2, regular rate and rhythm. No loud murmur ABDOMEN: Soft, no tenderness , guarding or rigidity, no organomegaly EXTREMITIES: Diffuse swelling both legs minimal warmth no open wound or any drainage SKIN: No rash, no masses palpable. NEUROLOGICAL: The patient is awake, alert, oriented x3, mood and affect normal Results CBC & Chem 7: 04/20/19 12:41 04/20/19 06:49 Labs: Abnormal Lab Results - Last 24 Hours (Table) 04/20/19 04/20/19 04/20/19 Range/Units 06:49 06:49 06:49 WBC (3.8-10.6) k/uL MCHC 30.5 L (31.0-37.0) g/dL APTT (22.0-30.0) sec Carbon Dioxide 34 H (22-30) mmol/L Creatinine 0.47 L (0.66-1.25) mg/dL POC Glucose (mg/dL) (75-99) mg/dL TSH 7.380 H (0.465-4.680) mIU/L 04/20/19 04/20/19 04/20/19 Range/Units 12:41 16:50 19:38 WBC 10.9 H (3.8-10.6) k/uL MCHC 30.2 L (31.0-37.0) g/dL APTT 62.1 H (22.0-30.0) sec Carbon Dioxide (22-30) mmol/L Creatinine (0.66-1.25) mg/dL POC Glucose (mg/dL) 107 H (75-99) mg/dL TSH (0.465-4.680) mIU/L 04/20/19 Range/Units 21:10 WBC (3.8-10.6) k/uL MCHC (31.0-37.0) g/dL APTT (22.0-30.0) sec Carbon Dioxide (22-30) mmol/L Creatinine (0.66-1.25) mg/dL POC Glucose (mg/dL) 107 H (75-99) mg/dL TSH (0.465-4.680) mIU/L Microbiology - Last 24 Hours (Table) 04/17/19 18:10 Blood Culture - Preliminary Blood No Growth after 72 hours Assessment and Plan Assessment: 1-patient with bilateral lower extremity cellulitis in this patient who did have diffuse swelling and redness with component of fluid overload likely streptococcal disease that seemed to have failed to respond to outpatient oral Therapy more likely the cause of the burden of disease rather than infection secondary to resistant pathogen Plan: 1-cefazolin 2 g every 8 hours 2-may benefit from mild compression dressing with Felix wrap from just above the toe to below the knee we will follow up on clinical condition and cultures to further adjust medication if needed Thank you for this consultation will follow this patient along with you
[2019-04-21] MEDS: DILTIAZEM 125 MG in SODIUM CHLORIDE 0.9% 100 ML IV SCH (05:38)
[2019-04-21] MEDS: LEVOTHYROXINE 88 MCG TAB PO SCH (06:03)
[2019-04-21] MEDS: PANTOPRAZOLE 40 MG TABLET PO SCH (06:03)
[2019-04-21] MEDS: ceFAZolin IN SWFI 2 GM/20 ML SYRINGE IVP SCH ×3 (06:03→23:22)
[2019-04-21 06:39] LABS: Glucose,Whole Blood 97 mg/dL (75-99)
[2019-04-21 06:54] LABS: Basophils # (A) 0.1 k/uL (0-0.2); Basophils % (A) 1 %; Eosinophils # (A) 0.3 k/uL (0-0.7); Eosinophils % (A) 3 %; HCT 48.6 % (39.0-53.0); HGB 15.3 gm/dL (13.0-17.5); Lymphocytes # (A) 2.8 k/uL (1.0-4.8); Lymphocytes % (A) 27 %; MCH 30.3 pg (25.0-35.0); MCHC 31.5 g/dL (31.0-37.0); MCV 96.1 fL (80.0-100.0); Mean Platelet Volume 7.9; Monocytes # (A) 0.9 k/uL (0-1.0); Monocytes % (A) 8 %; Neutrophils # (A) 6.1 k/uL (1.3-7.7); Neutrophils % (A) 59 %; Platelet Count 319 k/uL (150-450); RBC 5.06 m/uL (4.30-5.90); RDW 14.5 % (11.5-15.5); WBC 10.4 k/uL (3.8-10.6)
[2019-04-21 07:09] LABS: African American GFR (CKD) >90 (>60 ml/min/1.73 sqM); Anion Gap 4 mmol/L; Blood Urea Nitrogen 17 mg/dL (9-20); Calcium 9.3 mg/dL (8.4-10.2); Carbon Dioxide 34 mmol/L (22-30); Chloride 101 mmol/L (98-107); Glucose 93 mg/dL (74-99); Potassium 4.5 mmol/L (3.5-5.1); Sodium 139 mmol/L (137-145)
[2019-04-21] MEDS: CHOLECALCIFEROL 1,000 UNIT TAB PO SCH (09:15)
[2019-04-21] MEDS: ASPIRIN 81 MG PO SCH (09:15)
[2019-04-21] MEDS: METOPROLOL TARTRATE 50 MG TAB PO SCH ×3 (09:15→20:08)
[2019-04-21] MEDS: FUROSEMIDE 10 MG/ML 4 ML VIAL IV SCH ×2 (09:16→20:08)
[2019-04-21] MEDS: SPIRONOLACTONE 25 MG TAB PO SCH (09:16)
[2019-04-21] MEDS: DOCUSATE 100 MG CAP PO SCH (09:16)
[2019-04-21] MEDS: ASCORBIC ACID 500 MG TAB PO SCH (09:16)
[2019-04-21] MEDS: MULTIVITAMINS, THERA 1 EACH TAB PO SCH (09:16)
[2019-04-21] MEDS: APIXABAN 5 MG TAB PO SCH ×2 (12:13→20:08)
[2019-04-21 12:20] LABS: Glucose,Whole Blood 96 mg/dL (75-99)
--- NOTE | 2019-04-21 12:40 | PN ---
PROGRESS NOTE Mr. Fajardo is a 73-year-old male who presented with dyspnea and progressive peripheral edema. He has a history of coronary artery disease, status post redo coronary bypass grafting, history of chronic tobacco use. Yesterday went in atrial flutter with 2-1 conduction. His rate is under better control at this time. He is feeling better. He denies any symptoms of chest pain. He denies any dizziness or palpitation. He denies any nausea. He continues to be on IV heparin, IV Cardizem at 10 mg an hour drip. He is on aspirin 81 mg daily, Lasix 40 mg IV q.8 hours, metoprolol tartrate 50 mg twice a day, spironolactone 25 mg daily, rosuvastatin 20 mg daily. PHYSICAL EXAMINATION: Blood pressure running in the 90s with a heart rate in the 90s. LUNGS: Clear. HEART: Irregular regular. S1, S2. No S3. No rub. ABDOMEN: Soft, nontender. EXTREMITIES: With decreased edema with Felix wrapping in place. LAB DATA: Revealed BUN and creatinine 17 and 0.49, potassium 4.5, hemoglobin of 15.3. IMPRESSION: 1. Atrial flutter, new onset, rate controlled. 2. Cellulitis. 3. Status post redo coronary bypass grafting. 4. Chronic tobacco use. 5. Hypertension. 6. Hyperlipidemia. RECOMMENDATION: I will stop his IV Cardizem, increase the dose of his beta amber. I will stop the IV heparin and put him on oral anticoagulant. His diuretic dose will be decreased. Will follow his renal function. Depending on his progress, further recommendation will be made. MMODL / IJN: [id number] /
--- NOTE | 2019-04-21 13:51 | CDI ---
Documentation Clarification Form Date: 04/21/2019 1:29:52 PM From: Shaina Vo RN, CCDS Admit Date: 04/19/2019 9:43:00 AM Patient Name: Laura Fajardo Visit Number: [id number] Discharge Date: ATTENTION: The Clinical Documentation Specialists (CDI) and [facility] Coding Staff appreciate your assistance in clarifying documentation. Please respond to the clarification below the line at the bottom and electronically sign. The CDI & [facility] Coding staff will review the response and follow-up if needed. Please note: Queries are made part of the Legal Health Record. If you have any questions, please contact the author of this message via ITS. Dr. Fawn Koch Atrial Flutter is documented in the ongoing progress note starting on 04/20/19. History/Risk factors: Hypertension, Chronic tobacco use, Coronary artery disease Clinical Indicators: 73-year-old with known history of coronary artery disease. Cardiology was consulted related to tachycardia he felt slightly dizzy. EKG/telemetry: tachycardic, showed a rate of 127 with what appears to be atrial flutter with 2:[address]-T wave changes Treatment: Telemetry monitoring IV Cardizem Heparin drip Eliquis PO Lopressor Po In your professional opinion, in order to capture the severity of condition; can you please further clarify the Atrial Flutter with a 2:1 conduction delay is which of the following ? Typical/Type I xxxxxxx Atypical/Type II Other, please specify Unable to determine (Last Revision: January 2018) MTDD
[2019-04-21 17:04] LABS: Glucose,Whole Blood 91 mg/dL (75-99)
[2019-04-21 20:47] LABS: Glucose,Whole Blood 188 mg/dL (75-99)
--- NOTE | 2019-04-21 21:50 | PN ---
PROGRESS NOTE DATE OF SERVICE: 04/21/2019 This 73-year-old gentleman who was admitted with acute bilateral leg cellulitis had significant cardiac issues, also. The patient is being closely monitored. Infectious Disease is also following the patient closely. No chest pain. No palpitations. No fever. On exam, alert and oriented x3. Pulse is 89, blood pressure 98/60, respiration 18, temperature 97.9, pulse ox 96% on room air. HEENT: Conjunctivae normal. NECK: No jugular venous distention. CARDIOVASCULAR SYSTEM: S1, S2 irregular. RESPIRATORY SYSTEM: Breath sounds diminished at the bases. A few scattered rhonchi and crackles. ABDOMEN: Soft, non-tender. LEGS: Bilateral leg edema and swelling, right more than left. NERVOUS SYSTEM: No focal deficit. LABS: CBC within normal limits. Sodium 139, potassium 4.5. ASSESSMENT: 1. Bilateral leg cellulitis, right more than the left, severe. 2. Bilateral leg swelling, possible congestive heart failure, acute exacerbation, with acute on chronic systolic dysfunction, ejection fraction 40% to 50%. 3. Tachycardia with atrial flutter, new onset. 4. History of coronary artery disease, coronary artery bypass grafting, stent. 5. Multiple valvular abnormalities on the CT scan showing hyperdense lesions in the kidney, suspect hemorrhagic cyst, and nonspecific gas pattern, prostatic hypertrophy, lucent lesion at T1 vertebra requiring outpatient followup and evaluation. 6. Hyperkalemia, mild. 7. Hypertension. 8. History of degenerative joint disease. 9. Sleep apnea. 10.History of appendectomy. 11.History of continued ongoing nicotine dependence. RECOMMENDATIONS AND DISCUSSION: I recommend to continue current medications, continue with the monitoring, symptomatic treatment. We will monitor the patient closely. I would also recommend a bone scan. Continue the rest of the medications. Further recommendations to follow. MMODL / IJN: [id number] /
--- NOTE | 2019-04-21 22:35 | PN ---
PROGRESS NOTE DATE OF SERVICE: 04/21/2019 REASON FOR FOLLOWUP: Bilateral lower extremity cellulitis. INTERVAL HISTORY: The patient is currently afebrile. The patient has been breathing comfortably. Denies having any chest pain or any cough. No abdominal pain or any worsening pain to the leg area. PHYSICAL EXAMINATION: Blood pressure 93/53 with a pulse of 92, temperature 98.2. He is 94% on room air. General description is an elderly male lying in bed in no distress. RESPIRATORY SYSTEM: Unlabored breathing. Clear to auscultation anteriorly. HEART: S1, S2. Regular rate and rhythm. ABDOMEN: Soft. No tenderness. LABS: Hemoglobin is 15.3, white count 10.4 with a BUN of 17, creatinine 0.49. Blood culture has been negative. DIAGNOSTIC IMPRESSION AND PLAN: Patient with bilateral lower extremity cellulitis in this patient who did have diffuse swelling and redness, likely streptococcal disease. The patient is currently covered with cefazolin; to continue along with Felix wrap to keep the swelling down. Continue with supportive care. MMODL / IJN: [id number] /
[2019-04-22] MEDS: PANTOPRAZOLE 40 MG TABLET PO SCH (06:13)
[2019-04-22] MEDS: LEVOTHYROXINE 88 MCG TAB PO SCH (06:13)
[2019-04-22] MEDS: ceFAZolin IN SWFI 2 GM/20 ML SYRINGE IVP SCH ×3 (06:13→22:40)
[2019-04-22 07:30] LABS: Basophils # (A) 0.1 k/uL (0-0.2); Basophils % (A) 1 %; Eosinophils # (A) 0.4 k/uL (0-0.7); Eosinophils % (A) 3 %; HCT 53.6 % (39.0-53.0); HGB 16.5 gm/dL (13.0-17.5); Hypochromasia Slight; Lymphocytes # (A) 3.3 k/uL (1.0-4.8); Lymphocytes % (A) 30 %; MCH 29.9 pg (25.0-35.0); MCHC 30.8 g/dL (31.0-37.0); MCV 97.3 fL (80.0-100.0); Mean Platelet Volume 7.7; Monocytes % (A) 9 %; Neutrophils # (A) 6.1 k/uL (1.3-7.7); Neutrophils % (A) 55 %; Platelet Count 316 k/uL (150-450); RBC 5.51 m/uL (4.30-5.90); RDW 14.9 % (11.5-15.5); WBC 11.1 k/uL (3.8-10.6)
[2019-04-22 07:33] LABS: African American GFR (CKD) >90 (>60 ml/min/1.73 sqM); Anion Gap 9 mmol/L; Blood Urea Nitrogen 21 mg/dL (9-20); Calcium 9.6 mg/dL (8.4-10.2); Carbon Dioxide 31 mmol/L (22-30); Chloride 100 mmol/L (98-107); Glucose 88 mg/dL (74-99); Sodium 140 mmol/L (137-145)
[2019-04-22] MEDS: ASPIRIN 81 MG PO SCH (08:45)
[2019-04-22] MEDS: DOCUSATE 100 MG CAP PO SCH (08:45)
[2019-04-22] MEDS: CHOLECALCIFEROL 1,000 UNIT TAB PO SCH (08:45)
[2019-04-22] MEDS: ASCORBIC ACID 500 MG TAB PO SCH (08:45)
[2019-04-22] MEDS: METOPROLOL TARTRATE 50 MG TAB PO SCH ×3 (08:45→19:46)
[2019-04-22] MEDS: MULTIVITAMINS, THERA 1 EACH TAB PO SCH (08:45)
[2019-04-22] MEDS: SPIRONOLACTONE 25 MG TAB PO SCH (08:45)
[2019-04-22] MEDS: APIXABAN 5 MG TAB PO SCH ×2 (08:45→19:46)
[2019-04-22] MEDS: FUROSEMIDE 10 MG/ML 4 ML VIAL IV SCH ×2 (08:45→19:46)
--- NOTE | 2019-04-22 10:29 | PN ---
PROGRESS NOTE Mr. Fajardo is a 73-year-old male with known history of coronary artery disease, status post coronary artery bypass grafting, who had progressive peripheral edema was diagnosed with cellulitis. He had evidence of atrial flutter. He is feeling better today. His breathing is better. He is denying any symptoms of chest pain. He denies any dizziness or palpitations. He denies any nausea. His peripheral edema has improved. He continues to be at this time on Eliquis 5 mg twice a day, aspirin 81 mg daily, Lasix 40 mg IV q.12 hours, metoprolol 50 mg 3 times a day, rosuvastatin 20 mg daily and spironolactone 25 mg daily. PHYSICAL EXAMINATION: Blood pressure 107/50 with a heart rate in the 70s to 80s. LUNGS: Clear. HEART: Irregularly irregular. S1, S2. No S3, with a systolic murmur. ABDOMEN: Soft, nontender. EXTREMITIES: Decreased edema. Felix wrapping in place. LAB DATA: Lab data revealed BUN and creatinine of 21 and 4.44, potassium 5.0, hemoglobin of 16.5, white blood cells of 11.1. IMPRESSION: 1. Cellulitis, improving. 2. Peripheral edema related to cellulitis. 3. Atrial flutter, new onset; rate under better control, anticoagulated. 4. Status post redo coronary artery bypass grafting. 5. Chronic tobacco use. 6. History of hypertension. 7. Hyperlipidemia. RECOMMENDATIONS: Will continue present therapy. Increase his level of activity. Will follow his renal function. I would expect that in 24 hours we can switch him to oral diuretics, and if his rate remains stable, I will continue present therapy. If he continues to be in sinus mechanism as an outpatient, the patient will be readmitted to undergo cardioversion to restore sinus mechanism. MMODL / IJN: [id number] /
--- NOTE | 2019-04-22 12:36 | NM ---
EXAMINATION TYPE: NM bone scan whole body DATE OF EXAM: 04/22/2019 COMPARISON: CT scan 04/20/2019 HISTORY: Abnormal CT scan T11 Delayed whole-body scanning was performed following the injection of 26.2 mCi Tc 99m MDP. Images acq uired 4 hours post injection. FINDINGS: Exam is severely limited as the patient is unable to tolerate further imaging due to pain. Abnormal uptake involving the thoracic spine is nonspecific. Abnormal uptake involving the mid and lo wer lumbar spine is nonspecific. Abnormal uptake involving the sternum is nonspecific. Abnormal uptake involving the shoulders likely post arthritic. IMPRESSION: 1. Nonspecific uptake involving the thoracic and lumbar spine likely degenerative. 2. No definite corresponding abnormal increased or reduced uptake at T11 as noted by CT scan. Short-t erm follow-up MRI recommended. 3. Uptake involving the sternum is nonspecific. If there is a history of malignancy than metastasis w ould be in the differential diagnosis.
--- NOTE | 2019-04-22 17:11 | PN ---
PROGRESS NOTE DATE OF SERVICE: 04/22/2019 This 73-year-old gentleman who was admitted with bilateral leg cellulitis also had multiple cardiac issues. Cardiology is following the patient and adjusted the medications. No chest pain. No palpitations. No fever. A bone scan was also done because of suspicion of abnormal vertebrae on the CT scan. The bone scan showed nonspecific uptake; no definite lesion corresponding to the T11 lesion. Uptake in the sternum was found to be also nonspecific. No chest pain. No palpitations. No fever at this time. The patient also had atrial flutter; rate is being controlled at this time. On exam, alert and oriented x3. Pulse is 96, blood pressure 94/62, respiration 18, temperature 97.8, pulse ox 93% on room air. HEENT: Conjunctivae normal. NECK: No jugular venous distention. CARDIOVASCULAR SYSTEM: S1, S2 muffled. RESPIRATORY SYSTEM: Breath sounds diminished at the bases. A few scattered rhonchi. No crackles. ABDOMEN: Soft, non-tender. LEGS: Bilateral leg edema. NERVOUS SYSTEM: No focal deficit. LABS: WBC 11.1, hemoglobin 16.5, sodium 140, potassium 5. ASSESSMENT: 1. Bilateral leg cellulitis, right more than the left, severe. 2. Bilateral leg swelling, possible congestive heart failure, acute exacerbation, with acute on chronic systolic dysfunction, ejection fraction 40% to 50%. 3. Tachycardia with atrial flutter, new onset. 4. History of coronary artery disease, coronary artery bypass grafting, stent. 5. Multiple abnormalities on the CT scan showing a hyperdense lesion in the kidney; suspect hemorrhagic cyst; nonspecific gas pattern, prostatic hypertrophy, lucent lesion at T11 vertebra, requiring outpatient followup and evaluation. 6. Bone scan showing no significant abnormality corresponding with the T11 lesion. 7. Mild hyperkalemia, improved. 8. Hypertension. 9. History of degenerative joint disease. 10.History of sleep apnea. 11.History of appendectomy. 12.History of continued ongoing nicotine dependence. RECOMMENDATIONS AND DISCUSSION: I recommend to continue current medications, continue with the monitoring, symptomatic treatment. Otherwise at this time I would recommend continuing with the monitoring. Continue with the beta amber suggested by Cardiology. Patient is on metoprolol 50 mg p.o. t.i.d. at this time. Continue the antibiotics. The patient is on IV cefazolin. The cultures are negative so far. Guarded prognosis because of multiple complex medical issues. Further recommendations to follow. MMODL / IJN: [id number] /
--- NOTE | 2019-04-22 21:36 | PN ---
PROGRESS NOTE DATE OF SERVICE: 04/22/2019. REASON FOR FOLLOW UP: Lower extremity cellulitis. INTERVAL HISTORY: The patient is currently afebrile. The patient has been breathing comfortably. The patient denies having any chest pain or shortness of breath. No cough. No abdominal pain or any diarrhea. PHYSICAL EXAMINATION: Blood pressure is 94/60 with a pulse of 96. Temperature 97.8. He is 93% on room air. General description is an elderly male up in the chair in no distress. Respiratory system: Unlabored breathing with decreased breath sounds in the bases. No wheeze. Heart S1, S2. Regular rate and rhythm. Abdomen soft. No tenderness. Extremities: Bilateral legs currently wrapped up. No obvious drainage on the dressing. The patient did have a stage II bilateral gluteal/sacral pressure ulcer. No cellulitis. LABS: Hemoglobin is 16.5, white count 9.1. BUN of 21, creatinine 0.44. He did have a bone scan completed which nonspecific uptake involving thoracic lumbar spine, likely degenerative and no definite corresponding abnormal increased uptake in the T11. DIAGNOSTIC IMPRESSION/PLAN: 1. Patient with bilateral lower extremity cellulitis to continue with Cefazolin, compression dressing and finish therapy with oral antibiotics. 2. The patient with stage II bilateral gluteal pressure ulcer with no cellulitis. Local care with Aquacel Silver dressing to keep the patient off the pressure and dry. MMODL / IJN: [id number] /
[2019-04-23 06:24] LABS: Basophils % (A) 1 %; Eosinophils # (A) 0.3 k/uL (0-0.7); Eosinophils % (A) 4 %; HCT 51.2 % (39.0-53.0); HGB 15.7 gm/dL (13.0-17.5); Lymphocytes # (A) 2.3 k/uL (1.0-4.8); Lymphocytes % (A) 29 %; MCH 29.7 pg (25.0-35.0); MCHC 30.6 g/dL (31.0-37.0); Mean Platelet Volume 6.7; Monocytes # (A) 0.7 k/uL (0-1.0); Monocytes % (A) 9 %; Neutrophils # (A) 4.2 k/uL (1.3-7.7); Neutrophils % (A) 53 %; Platelet Count 352 k/uL (150-450); RBC 5.28 m/uL (4.30-5.90); RDW 13.7 % (11.5-15.5); WBC 7.8 k/uL (3.8-10.6)
[2019-04-23] MEDS: LEVOTHYROXINE 88 MCG TAB PO SCH (06:26)
[2019-04-23] MEDS: PANTOPRAZOLE 40 MG TABLET PO SCH (06:27)
[2019-04-23] MEDS: ceFAZolin IN SWFI 2 GM/20 ML SYRINGE IVP SCH ×3 (06:27→23:22)
[2019-04-23 06:32] LABS: African American GFR (CKD) >90 (>60 ml/min/1.73 sqM); Anion Gap 6 mmol/L; Blood Urea Nitrogen 24 mg/dL (9-20); Calcium 9.5 mg/dL (8.4-10.2); Carbon Dioxide 31 mmol/L (22-30); Chloride 102 mmol/L (98-107); Glucose 89 mg/dL (74-99); Potassium 5.1 mmol/L (3.5-5.1); Sodium 139 mmol/L (137-145)
[2019-04-23] MEDS: DOCUSATE 100 MG CAP PO SCH (08:10)
[2019-04-23] MEDS: METOPROLOL TARTRATE 50 MG TAB PO SCH ×3 (08:15→21:18)
[2019-04-23] MEDS: MULTIVITAMINS, THERA 1 EACH TAB PO SCH (08:15)
[2019-04-23] MEDS: FUROSEMIDE 10 MG/ML 4 ML VIAL IV SCH (08:15)
[2019-04-23] MEDS: CHOLECALCIFEROL 1,000 UNIT TAB PO SCH (08:15)
[2019-04-23] MEDS: SPIRONOLACTONE 25 MG TAB PO SCH (08:15)
[2019-04-23] MEDS: ASPIRIN 81 MG PO SCH (08:15)
[2019-04-23] MEDS: ASCORBIC ACID 500 MG TAB PO SCH (08:15)
[2019-04-23] MEDS: APIXABAN 5 MG TAB PO SCH ×2 (08:15→21:18)
--- NOTE | 2019-04-23 10:09 | PN ---
PROGRESS NOTE Mr. Fajardo is a 73-year-old male with known history of coronary artery disease status post coronary artery bypass grafting who presented with cellulitis of the lower extremities and was found to have episode of atrial flutter. He continues to be in atrial flutter with controlled ventricular response. He is doing well otherwise. He is denying any symptoms of chest pain. His breathing has been stable. He denies any dizziness or palpitation. He denies any nausea. He has been followed by Dr. Chowdhury. Continues to be at this time on Eliquis 5 mg twice a day, aspirin 81 mg daily, furosemide 40 mg IV q.12 hours, metoprolol tartrate 50 mg 3 times a day, rosuvastatin 20 mg daily, and spironolactone 25 mg daily. PHYSICAL EXAMINATION: Blood pressure 110/70 with a heart rate in in the 90s. LUNGS: Clear. HEART: Irregularly irregular S1, S2. No S3 with systolic ejection murmur 2/6. No diastolic murmur. ABDOMEN: Soft, nontender. EXTREMITIES with Felix wrapping in place and decreased edema. LAB DATA: Lab data revealed BUN and creatinine 24 and 0.57, potassium 5.1, hemoglobin 15.7, white blood cell of 7.8. IMPRESSION: 1. Cellulitis of lower extremities. 2. Atrial flutter, persistent typical with controlled ventricular response. 3. History of coronary artery disease status post coronary artery bypass grafting. 4. History of hyperlipidemia. 5. Chronic tobacco use. 6. Prior history of hypertension. RECOMMENDATION: I will switch him to oral diuretics. Continue rest of his medical regimen and depending on his progress, further recommendation will be made. Once the infectious process has resolved, if he continues to be in atrial flutter, then one option is to readmit him to undergo elective cardioversion. MMODL / IJN: [id number] /
[2019-04-23 14:19] VITALS: RESP 18
[2019-04-23] MEDS: FUROSEMIDE 40 MG TAB PO SCH (16:21)
--- NOTE | 2019-04-23 19:59 | PN ---
PROGRESS NOTE DATE OF SERVICE: 04/23/2019 This 73-year-old gentleman who was admitted with bilateral leg cellulitis and bilateral leg swelling is being closely monitored. No chest pain. No palpitations. No fever. The patient also had undiagnosed neurological illness being evaluated by Dr. Alcantar in the outpatient setting and evaluation and appointment in [facility] is pending. No chest pain. No palpitations. No fever. EXAM: Alert and oriented times three. Pulse 89, blood pressure 103/70, respirations 18, temperature 98 degrees, pulse ox 98% on room air. HEENT: Conjunctivae normal. NECK: No JVD. CARDIOVASCULAR: S1, S2 muffled. RESPIRATORY: Breath sounds diminished in the bases. A few rhonchi. No crackles. ABDOMEN soft. LEGS: Bilateral leg swelling and edema present. NERVOUS SYSTEM: No focal deficits. LABS: WBC 7.2, hemoglobin 15.7, creatinine is 4.57. ASSESSMENT: 1. Bilateral leg cellulitis, right more than the left, severe. 2. Bilateral leg swelling, possible congestive heart failure exacerbation with acute on chronic systolic dysfunction. Ejection fraction 45-50 percent. 3. Tachycardia with atrial flutter, new onset. 4. History of coronary artery disease, coronary artery bypass grafting, stent. 5. Multiple valvular abnormalities in the CT scan showed hyperdense lesion in the kidneys, suspect hemorrhagic cyst, nonspecific gas pattern, prostatic hypertrophy, lucent lesion the T1 vertebrae requiring outpatient followup and evaluation. 6. Bone scan showing no significant abnormality, corresponding to T11 lesion. 7. Mild hyperkalemia improved. 8. Hypertension, generalized weakness and undiagnosed neurological illness with wasting and weakness. 9. History of degenerative joint disease. 10.History of sleep apnea. 11.History of appendectomy. 12.History of continued ongoing nicotine dependence. RECOMMENDATIONS AND DISCUSSION: Recommend to continue current medications, management and symptomatic treatment. Otherwise, at this time, closely follow with Cardiology. Otherwise as mentioned earlier. The patient has got an appointment in [facility] for evaluation of the undiagnosed neurological illnesses. Muscle biopsy apparently is also being suggested at this point. ENG has been done as an outpatient. Otherwise, continue to monitor. Prognosis guarded because of multiple complex medical issues and further recommendations to follow. The patient is on p.o. Lasix at this point and as well as p.o. beta blockers. MMODL / IJN: [id number] /
--- NOTE | 2019-04-23 21:33 | PN ---
PROGRESS NOTE DATE OF SERVICE: 04/23/2019. REASON FOR FOLLOWUP: Bilateral lower extremity cellulitis. INTERVAL HISTORY: The patient is currently afebrile. Patient is breathing comfortably. Denies having any chest pain or cough. No abdominal pain. No pain to the lower extremity and no diarrhea. PHYSICAL EXAMINATION: Blood pressure 103/70 with a pulse of 79, temperature 98. He is 96% on room air. General description is an elderly male lying in bed in no distress. Respiratory system unlabored breathing. Clear to auscultation anteriorly. Heart S1, S2. Regular rate and rhythm. Abdomen soft, no tenderness. Bilateral extremities currently wrapped up in an felix wrap. No drainage. LABS: Hemoglobin 15.1, white count 7.8. BUN of 24, creatinine 0.57. Blood culture has been negative. DIAGNOSTIC IMPRESSION AND PLAN: Patient with bilateral lower extremity cellulitis with diffuse swelling and redness likely streptococcal disease. The patient is currently covered with Cefazolin that will continue along with Felix wrap to finish therapy with oral Keflex. Continue supportive care. MMODL / IJN: [id number] /
[2019-04-23 21:53] LABS: Glucose,Whole Blood 132 mg/dL (75-99)
[2019-04-24 06:36] LABS: Glucose,Whole Blood 106 mg/dL (75-99)
[2019-04-24] MEDS: LEVOTHYROXINE 88 MCG TAB PO SCH (06:50)
[2019-04-24] MEDS: ceFAZolin IN SWFI 2 GM/20 ML SYRINGE IVP SCH ×2 (06:50→15:04)
[2019-04-24] MEDS: PANTOPRAZOLE 40 MG TABLET PO SCH (06:50)
[2019-04-24 07:59] LABS: Basophils # (A) 0.1 k/uL (0-0.2); Basophils % (A) 1 %; Eosinophils # (A) 0.3 k/uL (0-0.7); Eosinophils % (A) 3 %; HCT 49.2 % (39.0-53.0); Hypochromasia Slight; Lymphocytes # (A) 2.5 k/uL (1.0-4.8); Lymphocytes % (A) 26 %; MCH 31.3 pg (25.0-35.0); MCHC 32.5 g/dL (31.0-37.0); MCV 96.2 fL (80.0-100.0); Mean Platelet Volume 7.7; Monocytes # (A) 0.7 k/uL (0-1.0); Monocytes % (A) 8 %; Neutrophils # (A) 5.8 k/uL (1.3-7.7); Neutrophils % (A) 61 %; Platelet Count 346 k/uL (150-450); RBC 5.12 m/uL (4.30-5.90); RDW 14.8 % (11.5-15.5); WBC 9.6 k/uL (3.8-10.6)
[2019-04-24 08:05] LABS: African American GFR (CKD) >90 (>60 ml/min/1.73 sqM); Anion Gap 8 mmol/L; Blood Urea Nitrogen 22 mg/dL (9-20); Calcium 9.8 mg/dL (8.4-10.2); Carbon Dioxide 35 mmol/L (22-30); Chloride 100 mmol/L (98-107); Glucose 92 mg/dL (74-99); Potassium 5.5 mmol/L (3.5-5.1); Sodium 143 mmol/L (137-145)
[2019-04-24 09:58] VITALS: BP 94/67; PULSE 86; TEMP 97.9
[2019-04-24] MEDS: APIXABAN 5 MG TAB PO SCH (09:58)
[2019-04-24] MEDS: ASCORBIC ACID 500 MG TAB PO SCH (09:58)
[2019-04-24] MEDS: METOPROLOL TARTRATE 50 MG TAB PO SCH ×2 (09:58→15:03)
[2019-04-24] MEDS: FUROSEMIDE 40 MG TAB PO SCH ×2 (09:58→15:03)
[2019-04-24] MEDS: MULTIVITAMINS, THERA 1 EACH TAB PO SCH (09:58)
[2019-04-24] MEDS: CHOLECALCIFEROL 1,000 UNIT TAB PO SCH (09:58)
[2019-04-24] MEDS: ASPIRIN 81 MG PO SCH (09:58)
[2019-04-24] MEDS: SPIRONOLACTONE 25 MG TAB PO SCH (09:59)
[2019-04-24] MEDS: DOCUSATE 100 MG CAP PO SCH (10:01)
[2019-04-24 12:17] LABS: Glucose,Whole Blood 150 mg/dL (75-99)
--- NOTE | 2019-04-24 15:23 | P.PN ---
Subjective Progress Note Date: 04/24/19 this is a 73-year-old male with known history of coronary artery disease and prior bypass surgery who presented to the hospital with cellulitis of lower extremities and was found to have an episode of atrial flutter, he continues to be in atrial flutter with a controlled ventricular response this morning. Otherwise patient denies any palpitations, no chest discomfort, no shortness of breath. He does complain this morning of generalized severe muscle weakness, he states that he's been experiencing this for several years. Of note, the patient is on Crestor, he states that he had similar muscle issues when he was on statins in the past. We will hold his Crestor at this time.blood pressure this morning 110/60 with a heart rate in the 80s, 91% on room air.White blood cell count 9.6, hemoglobin 16, platelet count 346. Sodium 143, potassium 5.5, BUN 22 and creatinine 0.5. Objective - Vital Signs Vital signs: Vital Signs Temp 97.9 F 04/24/19 08:00 Pulse 86 04/24/19 15:05 Resp 18 04/24/19 15:05 BP 94/67 04/24/19 08:00 Pulse Ox 92 L 04/24/19 08:00 Intake & Output 04/23/19 04/24/19 04/24/19 18:59 06:59 18:59 Intake Total 720 240 Output Total 700 300 Balance 20 -300 240 Weight 77.3 kg 77.2 kg Intake: Oral 720 240 Output: Urine 700 300 Other: Voiding Method Urinal Urinal Urinal # Voids 0 # Bowel Movements 1 1 - Exam PHYSICAL EXAMINATION: GENERAL:73-year-old female in no acute distress at the time of my examination HEENT: Head is atraumatic, normocephalic. Pupils equal, round. Sclera anicteri c. Conjunctiva are clear. Mucous membranes of the mouth are moist. Neck is supple. There is no elevated jugular venous pressure.No carotid bruit is heard. HEART EXAMINATION: heart S1 and S2 irregularly irregular a systolic ejection murmur is heard. CHEST EXAMINATION:[ Lungs are clear to auscultation and precussion. No chest wall tenderness is noted on palpation or with deep breathing.] ABDOMEN: [ Soft, nontender. Bowel sounds are heard. No organomegaly noted]. EXTREMITIES:[ 2+ peripheral pulses with bilateral Felix wraps in place. . - Labs CBC & Chem 7: 04/24/19 07:19 04/24/19 07:19 Labs: Abnormal Lab Results - Last 24 Hours (Table) 04/23/19 04/24/19 04/24/19 Range/Units 21:52 06:33 07:19 Potassium 5.5 H (3.5-5.1) mmol/L Carbon Dioxide 35 H (22-30) mmol/L BUN 22 H (9-20) mg/dL Creatinine 0.57 L (0.66-1.25) mg/dL POC Glucose (mg/dL) 132 H 106 H (75-99) mg/dL 04/24/19 Range/Units 12:02 Potassium (3.5-5.1) mmol/L Carbon Dioxide (22-30) mmol/L BUN (9-20) mg/dL Creatinine (0.66-1.25) mg/dL POC Glucose (mg/dL) 150 H (75-99) mg/dL Microbiology - Last 24 Hours (Table) 04/17/19 18:10 Blood Culture - Final Blood No Growth after 144 hours Assessment and Plan Plan: Assessment and plan #1 cellulitis of the lower extremities #2 atrial flutter, typical, type I #3 known history of coronary artery disease with prior bypass surgery #4 hyperlipidemia #5 chronic nicotine dependence #6 muscle aching Plan Because of the patient's complaints of severe muscle aching and weakness, we will discontinue the Crestor. Make a follow-up appointment with Dr. David Figueredo in the office post discharge. DNP note has been reviewed, I agree with a documented findings and plan of care. Patient was seen and examined.
--- NOTE | 2019-04-24 19:17 | PN ---
PROGRESS NOTE DATE OF SERVICE: 04/24/2019. REASON FOR FOLLOWUP: Bilateral lower extremity cellulitis. INTERVAL HISTORY: The patient is currently afebrile. Patient has been breathing comfortably. Denies having any chest pain or any cough. No abdominal pain or pain to the leg area. No diarrhea. PHYSICAL EXAMINATION: Blood pressure 94/67 with a pulse of 86. Temperature 97.9. He is 92% on room air. General description is an elderly male up in the chair in no distress. Respiratory system: Unlabored breathing, clear to auscultation anteriorly. Heart S1, S2. Regular rate and rhythm. Abdomen is soft, No tenderness. Legs are currently wrapped up. No obvious drainage on the dressing. LABS: White count 9.6, BUN of 22, creatinine 0.53. Blood culture has been negative. DIAGNOSTIC IMPRESSION AND PLAN: The patient with bilateral lower extremity cellulitis in this patient who did have diffuse swelling and redness likely streptococcal disease, currently on Cefazolin along with Felix wrap to keep the swelling down. Antibiotic was switched to oral Keflex on discharge. Continue with compression dressing. Continue supportive care. MMODL / IJN: [id number] /
--- NOTE | 2019-04-25 05:39 | DS ---
DISCHARGE SUMMARY DATE OF SERVICE: 04/24/2019 FINAL DIAGNOSES: 1. Bilateral leg cellulitis, right more than the left, severe. 2. Leg swelling, possible congestive heart failure acute exacerbation with acute on chronic systolic dysfunction, ejection fraction 40% to 50%. 3. Tachycardia with atrial flutter. 4. History of coronary artery disease, CABG, stent. 5. Multiple abnormalities on the CAT scan showed hyperdense lesion in the kidney suspect hemorrhagic cyst, nonspecific gas pattern, prostatic hypertrophy, lucent lesion in the T11 vertebra requiring outpatient evaluation and treatment. 6. Bone scan showing no significant abnormality corresponding to T11 lesion or anywhere else. 7. Mild hyperkalemia, improved. 8. Hypertension. 9. Generalized weakness and undiagnosed neurologic illness with wasting and weakness with [facility] appointment soon. 10.History of degenerative joint disease. 11.History of sleep apnea. 12.History of appendectomy. 13.History of continued ongoing nicotine dependence. DISCHARGE DISPOSITION: The patient will be discharged in stable condition with guarded prognosis. Total time taken 35 minutes. HISTORY OF PRESENT ILLNESS: This 73-year-old gentleman with a past medical history of multiple medical problems admitted with acute bilateral leg cellulitis. The patient improved significantly. Patient had multiple complex medical issues as mentioned earlier. Cardiology saw the patient. Care was coordinated. The patient also had an abnormal lesion on the CAT scan, but which did not show up on the bone scan. The patient improved significantly. On exam, vitals are stable. CARDIOVASCULAR: S1, S2 muffled. ABDOMEN: Soft. NERVOUS SYSTEM: No focal deficits otherwise diffuse wasting and weakness present otherwise. The patient will be discharged in stable condition with guarded prognosis. Further plans to follow up with the [facility] and as well as primary physician at [facility], Dr. Cavanaugh. DISCHARGE ADVICE: 1. Diet is cardiac. 2. Activity limited until followup. 3. Follow up with roll line operator as recommended. 4. Follow up with Dr. Cavanaugh as recommended. 5. Follow up with [facility] as recommended. MEDICATIONS: 1. Aldactone 25 mg daily p.r.n. 2. Coenzyme 100 mg p.o. daily. 3. Colace 100 mg p.o. daily. 4. Crestor 20 mg p.o. daily. 5. [place]-3 fatty acids 1 p.o. daily. 6. Garlic 1 p.o. daily. 7. Lasix 40 mg p.o. b.i.d. 8. Multivitamins 1 p.o. daily. 9. Milk thistle 150 mg p.o. daily. 10.Omeprazole 20 mg p.o. daily. 11.PreserVision 1 cap p.o. b.i.d. 12.[place] 160 mg p.o. b.i.d. 13.Aspirin 162 mg p.o. daily. 14.Synthroid 88 mcg p.o. daily. 15.Vitamin C 500 mg p.o. daily. 16.Vitamin D3, 1000 daily. 17.Eliquis 5 mg p.o. b.i.d. 18.Lopressor 50 mg p.o. t.i.d. 19.Zestril 20 mg p.o. daily. Please note the change in dosage. Hold lisinopril for now. Once again, the patient will be discharged in a stable condition with guarded prognosis. MMODL / IJN: [id number] /
== END 2019-04-24 15:59 | disposition home or self-care (01) | DRG 602 ==
LOC: EC 16:40 → 4SSUR 19:57 → OBSVTOIN 04-19 09:43 → 3SCARD 04-20 13:55
PROVIDERS: ADMIT Hospitalist; ATTEND Hospitalist
DX: L03.115 Cellulitis of right lower limb (principal); I50.23 Acute on chronic systolic (congestive) heart failure; I45.89 Other specified conduction disorders; I48.3 Typical atrial flutter; J98.11 Atelectasis; E03.9 Hypothyroidism, unspecified; E78.5 Hyperlipidemia, unspecified; E87.5 Hyperkalemia; F17.200 Nicotine dependence, unspecified, uncomplicated; G47.30 Sleep apnea, unspecified; I11.0 Hypertensive heart disease with heart failure; I25.10 Atherosclerotic heart disease of native coronary artery without angina pectoris; L03.116 Cellulitis of left lower limb; M89.9 Disorder of bone, unspecified; L89.152 Pressure ulcer of sacral region, stage 2; N40.0 Benign prostatic hyperplasia without lower urinary tract symptoms; N28.1 Cyst of kidney, acquired; R29.90 Unspecified symptoms and signs involving the nervous system; Z79.01 Long term (current) use of anticoagulants; Z79.82 Long term (current) use of aspirin; Z79.890 Hormone replacement therapy; Z79.899 Other long term (current) drug therapy; Z80.9 Family history of malignant neoplasm, unspecified; Z90.49 Acquired absence of other specified parts of digestive tract; Z90.81 Acquired absence of spleen; Z95.1 Presence of aortocoronary bypass graft; Z95.5 Presence of coronary angioplasty implant and graft; Z88.8 Allergy status to other drugs, medicaments and biological substances; Z91.030 Bee allergy status; Z98.1 Arthrodesis status
CPT/HCPCS: 36415; 71046; 74176; 78306; 80048; 80053; 81003; 83605; 83880; 84439; 84443; 84484; 85025; 85610; 85730; 87040; 87086; 93005; 93306; 93970; 96361; 96365; 96366; 96375; 96376; 99284

== ENCOUNTER 2019-06-14 13:03 | Emergency (ER) | payer MEDICARE, OTHER ==
[2019-06-14 13:19] VITALS: RESP 18
[2019-06-14 14:20] LABS: Basophils # (A) 0.1 k/uL (0-0.2); Basophils % (A) 1 %; Eosinophils # (A) 0.1 k/uL (0-0.7); Eosinophils % (A) 2 %; HCT 51.5 % (39.0-53.0); HGB 16.2 gm/dL (13.0-17.5); Lymphocytes # (A) 1.5 k/uL (1.0-4.8); Lymphocytes % (A) 23 %; MCHC 31.6 g/dL (31.0-37.0); MCV 98.3 fL (80.0-100.0); Mean Platelet Volume 7.2; Monocytes # (A) 0.5 k/uL (0-1.0); Monocytes % (A) 7 %; Neutrophils # (A) 4.3 k/uL (1.3-7.7); Neutrophils % (A) 65 %; Platelet Count 322 k/uL (150-450); RBC 5.23 m/uL (4.30-5.90); RDW 15.6 % (11.5-15.5); WBC 6.6 k/uL (3.8-10.6)
[2019-06-14 14:31] LABS: ALT 40 U/L (21-72); AST 38 U/L (17-59); African American GFR (CKD) >90 (>60 ml/min/1.73 sqM); Albumin 4.2 g/dL (3.5-5.0); Alkaline Phosphatase 63 U/L (38-126); Anion Gap 8 mmol/L; Blood Urea Nitrogen 16 mg/dL (9-20); Calcium 10.4 mg/dL (8.4-10.2); Carbon Dioxide 34 mmol/L (22-30); Chloride 100 mmol/L (98-107); Glucose 110 mg/dL (74-99); Potassium 5.7 mmol/L (3.5-5.1); Sodium 142 mmol/L (137-145); Total Bilirubin 0.5 mg/dL (0.2-1.3); Total Protein 7.8 g/dL (6.3-8.2)
--- NOTE | 2019-06-14 14:33 | ED ---
Extremity Problem HPI - General Chief complaint: Extremity Problem,Nontraumatic Stated complaint: rt heel infection Time Seen by Provider: 06/14/19 13:31 Source: patient, family Mode of arrival: wheelchair Limitations: no limitations - History of Present Illness Initial comments: 73-year-old male with history of ALS presenting today for chief complaint of possible infection of the right heel x 1 day. Patient states he has chronic bilateral lower extremity swelling. He states that he has been struggling with this for the past year is on Lasix. Patient states he also has a history of elevated potassium with it being as high as 6.0. Patient states this is chronic. Patient states his granddaughter was changing his compression stockings she noticed an area that she was concerned infection on the right heel she states it was discolored she states the foot felt cold. Patient states that his feet are chronically cold and especially on the side where he had previous bypass surgery. He states he's had previous ultrasound to check for blood flow. He states that he was not aware of any abnormalities. Patient denies any significant pain. Denies fever or flu like symptoms. Denies bleeding or drainage from area. Patient states he does rest his right heel on his bench daily. Remaining ROS (-). Upon arrival patient appears nontoxic. Patient wheelchair bound. - Related Data Home Medications Medication Instructions Recorded Confirmed Furosemide [Lasix] 40 mg PO BID 05/13/17 06/14/19 Levothyroxine Sodium [Synthroid] 88 mcg PO DAILY 05/13/17 06/14/19 [place]-3 Fatty Acids/Fish Oil [Fish 1 cap PO DAILY 05/13/17 06/14/19 Oil 1,000 mg Softgel] Aspirin [[place] Aspirin EC] 162 mg PO DAILY 04/17/19 06/14/19 Omeprazole 20 mg PO DAILY 04/17/19 06/14/19 DULoxetine HCL [Cymbalta] 30 mg PO DAILY 06/14/19 06/14/19 EPINEPHrine (Auto Inject) [Epipen] 0.3 mg IM ONCE PRN 06/14/19 06/14/19 Gabapentin [Neurontin] 100 mg PO BID 06/14/19 06/14/19 Ipratropium/Albuterol Sulfate 1 puff INHALATION RT-QID 06/14/19 06/14/19 [Combivent Respimat Inhaler] Nitroglycerin Sl Tabs [Nitrostat] 0.4 mg SUBLINGUAL Q5M PRN 06/14/19 06/14/19 Riluzole [Rilutek] 50 mg PO BID 06/14/19 06/14/19 Rosuvastatin Calcium [Crestor] 40 mg PO HS 06/14/19 06/14/19 Zinc Oxide [Desitin] 1 applic TOPICAL BID PRN 06/14/19 06/14/19 Previous Rx's Medication Instructions Recorded Apixaban [Eliquis] 5 mg PO BID #60 tab 04/24/19 Metoprolol Tartrate [Lopressor] 50 mg PO TID #90 tab 04/24/19 Spironolactone [Aldactone] 25 mg PO DAILY #30 tablet 04/24/19 Allergies Allergy/AdvReac Type Severity Reaction Status Date / Time bee pollen Allergy Anaphylaxis Verified 06/14/19 14:18 atorvastatin AdvReac muscle Verified 06/14/19 14:18 cramps Review of Systems ROS Statement: Those systems with pertinent positive or pertinent negative responses have been documented in the HPI. ROS Other: All systems not noted in ROS Statement are negative. Past Medical History Past Medical History: Hyperlipidemia, Hypertension, Osteoarthritis (OA), Sleep Apnea/CPAP/BIPAP, Thyroid Disorder Additional Past Medical History / Comment(s): DDD, bulging discs, probable sleep apnea, ALS History of Any Multi-Drug Resistant Organisms: None Reported Past Surgical History: Appendectomy, Coronary Bypass/CABG, Heart Catheterization, Heart Catheterization With Stent, Orthopedic Surgery Additional Past Surgical History / Comment(s): CABG x2-last 2010, splenectomy, left shoulder surg., cervical fusion Past Anesthesia/Blood Transfusion Reactions: No Reported Reaction Additional Past Anesthesia/Blood Transfusion Reaction / Comment(s): states took 9 days to come off vent. after last open heart surg-he's not sure why Date of Last Stent Placement:: unknown Past Psychological History: No Psychological Hx Reported Smoking Status: Current every day smoker Past Alcohol Use History: None Reported Past Drug Use History: None Reported - Past Family History Sister(s) Family Medical History: Cancer General Exam - General Exam Comments Initial Comments: General: The patient is awake and alert, in no distress, and does not appear acutely ill. Eye: Pupils are equal, round and reactive to light, extra-ocular movements are intact. No nystagmus. There is normal conjunctiva bilaterally. No signs of icterus. Ears, nose, mouth and throat: There are moist mucous membranes and no oral lesions. Neck: The neck is supple, there is no tenderness or JVD. Cardiovascular: There is a regular rate and rhythm. No murmur, rub or gallop is appreciated. Respiratory: Lungs are clear to auscultation, respirations are non-labored, breath sounds are equal. No wheezes, stridor, rales, or rhonchi. Gastrointestinal: Soft, non-distended, non-tender abdomen without masses or organomegaly noted. There is no rebound or guarding present. Musculoskeletal: Normal ROM, no tenderness. Strength 5/5. Sensation intact. Radial pulses equal bilaterally 2+. Neurological: A&O x 3. CN II-XII intact grossly ,Speech is normal. Skin: Skin is warm and dry and no rashes. B/l lower extremity edema. Slight coolness of right LE however strong pulses on doppler studies equal b/l. There is a slight change in color of the heath, white, with darkers areas of the heel. Non blanchable skin no drainage, odor or warmth. Psychiatric: Cooperative, appropriate mood & affect, normal judgment. Limitations: no limitations Course Vital Signs 06/14/19 13:16 Temperature 97.6 F Pulse Rate 64 Respiratory 18 Rate Blood Pressure 116/73 O2 Sat by Pulse 96 Oximetry - Reevaluation(s) Reevaluation #1: Patient was evaluated in person by my attending Dr. John who recommended pending patient/patient family comfort-discharge with outpatient f/u as findings appears more chronic due to pressure opposed to an acute infectious process. 06/14/19 Medical Decision Making - Medical Decision Making 9-year-old male presented for right heel possible infection. There is no overt signs of acute infection. No leukocytosis to the patient. Appears on examination a developing ulcer however there is no breaks in the skin near her port plantar pressure. Patient also has some slight coolness to her lower extremities however strong Dopplers. Patient has had previous venous harvest on the right lower extremity most likely venous insufficiency. Patient is afebrile and nontoxic and well-appearing patient did have mild hypokalemia on laboratory studies however patient's states is "always high" and they state it has been high as 6. Patient is on Lasix. Patient given IV dose of Lasix as well as insulin the emergency department. I recommended close f/u for repeat labs in 24-48 hours. Patient verbalized understanding. Parameters were d iscussed at length which include any weeping redness pain fevers or any worsening skin findings. Patient and family verbalized understanding and states he will check it daily. I did discuss the importance of proper positioning. Patient was discharged appearing well, Dr. John is agreeable with discharge and care plan-evaluated the patient in person. - Lab Data Result diagrams: 06/14/19 14:10 06/14/19 14:10 Lab Results 06/14/19 06/14/19 Range/Units 14:10 14:10 WBC 6.6 (3.8-10.6) k/uL RBC 5.23 (4.30-5.90) m/uL Hgb 16.2 (13.0-17.5) gm/dL Hct 51.5 (39.0-53.0) % MCV 98.3 (80.0-100.0) fL MCH 31.0 (25.0-35.0) pg MCHC 31.6 (31.0-37.0) g/dL RDW 15.6 H (11.5-15.5) % Plt Count 322 (150-450) k/uL Neutrophils % 65 % Lymphocytes % 23 % Monocytes % 7 % Eosinophils % 2 % Basophils % 1 % Neutrophils # 4.3 (1.3-7.7) k/uL Lymphocytes # 1.5 (1.0-4.8) k/uL Monocytes # 0.5 (0-1.0) k/uL Eosinophils # 0.1 (0-0.7) k/uL Basophils # 0.1 (0-0.2) k/uL Sodium 142 (137-145) mmol/L Potassium 5.7 H (3.5-5.1) mmol/L Chloride 100 (98-107) mmol/L Carbon Dioxide 34 H (22-30) mmol/L Anion Gap 8 mmol/L BUN 16 (9-20) mg/dL Creatinine 0.49 L (0.66-1.25) mg/dL Est GFR (CKD-EPI)AfAm >90 (>60 ml/min/1.73 sqM) Est GFR (CKD-EPI)NonAf >90 (>60 ml/min/1.73 sqM) Glucose 110 H (74-99) mg/dL Calcium 10.4 H (8.4-10.2) mg/dL Total Bilirubin 0.5 (0.2-1.3) mg/dL AST 38 (17-59) U/L ALT 40 (21-72) U/L Alkaline Phosphatase 63 (38-126) U/L Total Protein 7.8 (6.3-8.2) g/dL Albumin 4.2 (3.5-5.0) g/dL Disposition Clinical Impression: Ulcer of right heel, Hyperkalemia Disposition: HOME SELF-CARE Condition: Good Instructions (If sedation given, give patient instructions): Venous Insufficiency (DC) Additional Instructions: Please use medication as discussed. Please follow-up with family doctor in the next 24-48 hours. Please keep heel elevated, frequent change of positions. Please return to emergency room if the symptoms increase or worsen or for any other concerns. Is patient prescribed a controlled substance at d/c from ED?: No Referrals: [facility],Clinic [Primary Care Provider] - 1-2 days Time of Disposition: 16:11
[2019-06-14] MEDS ORDERED: CALCIUM GLUCONATE 1 GM in SODIUM CHLORIDE 0.9% 100 ML IVPB ONE (14:34)
[2019-06-14] MEDS ORDERED: SODIUM POLYSTYRENE SULFONATE 15 GM/60 ML BOTTLE PO ONE (14:57)
[2019-06-14] MEDS ORDERED: FUROSEMIDE 10 MG/ML 4 ML VIAL IV STA (15:34)
[2019-06-14] MEDS ORDERED: DEXTROSE 50% SYRINGE 50 ML IVP STA (15:36)
[2019-06-14] MEDS ORDERED: INSULIN REGULAR 100 UNIT/ML VIAL IV ONE (15:36)
[2019-06-14 17:18] LABS: Glucose,Whole Blood 198 mg/dL (75-99)
[2019-06-14 17:32] VITALS: BP 146/76; PULSE 73; TEMP 98.1
== END 2019-06-14 17:32 | disposition home or self-care (01) ==
LOC: EC 13:03
DX: L97.419 Non-pressure chronic ulcer of right heel and midfoot with unspecified severity (principal); E87.5 Hyperkalemia; G12.21 Amyotrophic lateral sclerosis; R60.0 Localized edema; F17.200 Nicotine dependence, unspecified, uncomplicated; E78.5 Hyperlipidemia, unspecified; I10 Essential (primary) hypertension; M19.90 Unspecified osteoarthritis, unspecified site; G47.30 Sleep apnea, unspecified; E07.9 Disorder of thyroid, unspecified; Z79.890 Hormone replacement therapy; Z79.82 Long term (current) use of aspirin; Z79.899 Other long term (current) drug therapy; Z88.8 Allergy status to other drugs, medicaments and biological substances; Z91.030 Bee allergy status; Z95.5 Presence of coronary angioplasty implant and graft; Z99.3 Dependence on wheelchair; Z95.1 Presence of aortocoronary bypass graft; Z53.9 Procedure and treatment not carried out, unspecified reason; Z99.89 Dependence on other enabling machines and devices
CPT/HCPCS: 36415; 80053; 85025; 99283; 96365; 96374; 96375; J1940; J0610

== ENCOUNTER 2019-06-21 11:18 | Inpatient (IN) | payer OTHER, MEDICARE ==
[2019-06-21] MEDS ORDERED: SODIUM CHLORIDE 0.9% 500 ML 500 ML IV STA (11:25)
[2019-06-21] MEDS ORDERED: SODIUM CHLORIDE 0.9% 1,000 ML IV STA ×2 (11:25)
--- NOTE | 2019-06-21 11:26 | ED ---
Recheck HPI - General Chief Complaint: Recheck/Abnormal Lab/Rx Stated Complaint: abn labs Time Seen by Provider: 06/21/19 11:25 Source: patient, RN notes reviewed, old records reviewed Mode of arrival: ambulatory Limitations: no limitations - History of Present Illness Initial Comments: This is a 73-year-old male the ER for evaluation. Patient presents today with no complaints abnormal outpatient lab test showing potassium of 6.7. Patient denies taking potassium supplementation, denies history of renal failure. Patient states he was followed up in the clinic for ER visit last week secondary lower extremity swelling ankle swelling. Patient unsure of medications that is taking, history of ALS. No recent hospital admissions denying current fever. Patient states his legs he believes look about the same as it did to his prior ER visit MD Complaint: abnormal lab (Elevated potassium) -: unknown Returns Today for: Called Because of Abnormal Lab/Test Symptoms Since Prior Visit: no new symptoms Context: called for abnormal lab result Associated Symptoms: none - Related Data Home Medications Medication Instructions Recorded Confirmed Furosemide [Lasix] 40 mg PO BID 05/13/17 06/21/19 Levothyroxine Sodium [Synthroid] 88 mcg PO DAILY 05/13/17 06/21/19 [place]-3 Fatty Acids/Fish Oil [Fish 1 cap PO DAILY 05/13/17 06/21/19 Oil 1,000 mg Softgel] Aspirin [[place] Aspirin EC] 162 mg PO DAILY 04/17/19 06/21/19 Omeprazole 20 mg PO DAILY 04/17/19 06/21/19 DULoxetine HCL [Cymbalta] 30 mg PO DAILY 06/14/19 06/21/19 EPINEPHrine (Auto Inject) [Epipen] 0.3 mg IM ONCE PRN 06/14/19 06/21/19 Gabapentin [Neurontin] 100 mg PO BID 06/14/19 06/21/19 Ipratropium/Albuterol Sulfate 1 puff INHALATION RT-QID 06/14/19 06/21/19 [Combivent Respimat Inhaler] Nitroglycerin Sl Tabs [Nitrostat] 0.4 mg SUBLINGUAL Q5M PRN 06/14/19 06/21/19 Riluzole [Rilutek] 50 mg PO BID 06/14/19 06/21/19 Rosuvastatin Calcium [Crestor] 40 mg PO HS 06/14/19 06/21/19 Zinc Oxide [Desitin] 1 applic TOPICAL BID PRN 06/14/19 06/21/19 Previous Rx's Medication Instructions Recorded Apixaban [Eliquis] 5 mg PO BID #60 tab 04/24/19 Metoprolol Tartrate [Lopressor] 50 mg PO TID #90 tab 04/24/19 Allergies Allergy/AdvReac Type Severity Reaction Status Date / Time bee pollen Allergy Anaphylaxis Verified 06/21/19 11:48 atorvastatin AdvReac muscle Verified 06/21/19 11:48 cramps Review of Systems ROS Statement: Those systems with pertinent positive or pertinent negative responses have been documented in the HPI. ROS Other: All systems not noted in ROS Statement are negative. Past Medical History Past Medical History: Hyperlipidemia, Hypertension, Osteoarthritis (OA), Sleep A pnea/CPAP/BIPAP, Thyroid Disorder Additional Past Medical History / Comment(s): DDD, bulging discs, probable sleep apnea, ALS History of Any Multi-Drug Resistant Organisms: None Reported Past Surgical History: Appendectomy, Coronary Bypass/CABG, Heart Catheterization, Heart Catheterization With Stent, Orthopedic Surgery Additional Past Surgical History / Comment(s): CABG x2-last 2010, splenectomy, left shoulder surg., cervical fusion Past Anesthesia/Blood Transfusion Reactions: No Reported Reaction Additional Past Anesthesia/Blood Transfusion Reaction / Comment(s): states took 9 days to come off vent. after last open heart surg-he's not sure why Date of Last Stent Placement:: unknown Past Psychological History: No Psychological Hx Reported Smoking Status: Current every day smoker Past Alcohol Use History: None Reported Past Drug Use History: None Reported - Past Family History Sister(s) Family Medical History: Cancer General Exam Limitations: no limitations General appearance: alert, in no apparent distress Head exam: Present: atraumatic, normocephalic, normal inspection Eye exam: Present: normal appearance, PERRL, EOMI. Absent: scleral icterus, conjunctival injection, periorbital swelling ENT exam: Present: normal exam, mucous membranes moist Neck exam: Present: normal inspection. Absent: tenderness, meningismus, lymphadenopathy Respiratory exam: Present: normal lung sounds bilaterally. Absent: respiratory distress, wheezes, rales, rhonchi, stridor Cardiovascular Exam: Present: regular rate, normal rhythm, normal heart sounds. Absent: systolic murmur, diastolic murmur, rubs, gallop, clicks GI/Abdominal exam: Present: soft, normal bowel sounds. Absent: distended, tenderness, guarding, rebound, rigid Extremities exam: Present: normal inspection, full ROM, normal capillary refill. Absent: tenderness, pedal edema, joint swelling, calf tenderness Back exam: Present: normal inspection Neurological exam: Present: alert, oriented X3, CN II-XII intact Psychiatric exam: Present: normal affect, normal mood Skin exam: Present: warm, dry, intact, normal color. Absent: rash Course Vital Signs 06/21/19 06/21/19 11:20 13:26 Temperature 97.6 F Pulse Rate 65 98 Respiratory 18 16 Rate Blood Pressure 148/90 O2 Sat by Pulse 94 L 98 Oximetry - Reevaluation(s) Reevaluation #1: 06/21/19 11:26 Medical record and prior laboratories are reviewed, mildly elevated potassium prior Reevaluation #2: 06/21/19 14:06 Patient's potassium is reviewed here in the ER, is not elevated Medical Decision Making - Medical Decision Making 73 male the ER for evaluation of possibly elevated potassium. Recent ER visit for lower extremity pain possible infection. Patient has positive bilateral lower extremity cellulitis. Will admit for failure of outpatient treatment - Lab Data Result diagrams: 06/21/19 11:43 06/21/19 11:43 Lab Results 06/21/19 06/21/19 Range/Units 11:43 11:43 WBC 9.0 (3.8-10.6) k/uL RBC 5.23 (4.30-5.90) m/uL Hgb 16.2 (13.0-17.5) gm/dL Hct 50.1 (39.0-53.0) % MCV 95.7 (80.0-100.0) fL MCH 30.9 (25.0-35.0) pg MCHC 32.4 (31.0-37.0) g/dL RDW 13.7 (11.5-15.5) % Plt Count 331 (150-450) k/uL Neutrophils % 75 % Lymphocytes % 12 % Monocytes % 8 % Eosinophils % 2 % Basophils % 1 % Neutrophils # 6.7 (1.3-7.7) k/uL Lymphocytes # 1.1 (1.0-4.8) k/uL Monocytes # 0.8 (0-1.0) k/uL Eosinophils # 0.1 (0-0.7) k/uL Basophils # 0.1 (0-0.2) k/uL Sodium 137 (137-145) mmol/L Potassium 4.7 (3.5-5.1) mmol/L Chloride 98 (98-107) mmol/L Carbon Dioxide 29 (22-30) mmol/L Anion Gap 10 mmol/L BUN 15 (9-20) mg/dL Creatinine 0.34 L (0.66-1.25) mg/dL Est GFR (CKD-EPI)AfAm >90 (>60 ml/min/1.73 sqM) Est GFR (CKD-EPI)NonAf >90 (>60 ml/min/1.73 sqM) Glucose 103 H (74-99) mg/dL Calcium 10.0 (8.4-10.2) mg/dL Phosphorus 4.0 (2.5-4.5) mg/dL Magnesium 2.1 (1.6-2.3) mg/dL Total Bilirubin 0.6 (0.2-1.3) mg/dL AST 47 (17-59) U/L ALT 40 (21-72) U/L Alkaline Phosphatase 63 (38-126) U/L Total Protein 7.8 (6.3-8.2) g/dL Albumin 4.3 (3.5-5.0) g/dL - EKG Data -: EKG Interpreted by Me (EKG shows sinus rhythm rate of 86, OR 146, QRS 70, QTc 461) - Radiology Data Radiology results: report reviewed (Ultrasound bilateral lower extremity is negative for DVT), image reviewed Disposition Clinical Impression: Bilateral lower extremity edema, Bilateral lower leg cellulitis, Failure of outpatient treatment, Ulcer of right heel Disposition: ADMITTED IP TO THIS HOSP Condition: Good Is patient prescribed a controlled substance at d/c from ED?: No Referrals: [facility],Clinic [Primary Care Provider] - 1-2 days
[2019-06-21 11:56] LABS: Basophils # (A) 0.1 k/uL (0-0.2); Basophils % (A) 1 %; Eosinophils # (A) 0.1 k/uL (0-0.7); Eosinophils % (A) 2 %; HCT 50.1 % (39.0-53.0); HGB 16.2 gm/dL (13.0-17.5); Lymphocytes # (A) 1.1 k/uL (1.0-4.8); Lymphocytes % (A) 12 %; MCH 30.9 pg (25.0-35.0); MCHC 32.4 g/dL (31.0-37.0); MCV 95.7 fL (80.0-100.0); Monocytes # (A) 0.8 k/uL (0-1.0); Monocytes % (A) 8 %; Neutrophils # (A) 6.7 k/uL (1.3-7.7); Neutrophils % (A) 75 %; Platelet Count 331 k/uL (150-450); RBC 5.23 m/uL (4.30-5.90); RDW 13.7 % (11.5-15.5)
[2019-06-21 12:05] LABS: ALT 40 U/L (21-72); AST 47 U/L (17-59); African American GFR (CKD) >90 (>60 ml/min/1.73 sqM); Albumin 4.3 g/dL (3.5-5.0); Alkaline Phosphatase 63 U/L (38-126); Anion Gap 10 mmol/L; Blood Urea Nitrogen 15 mg/dL (9-20); Carbon Dioxide 29 mmol/L (22-30); Chloride 98 mmol/L (98-107); Glucose 103 mg/dL (74-99); Magnesium 2.1 mg/dL (1.6-2.3); Potassium 4.7 mmol/L (3.5-5.1); Sodium 137 mmol/L (137-145); Total Bilirubin 0.6 mg/dL (0.2-1.3); Total Protein 7.8 g/dL (6.3-8.2)
--- NOTE | 2019-06-21 12:59 | US ---
EXAMINATION TYPE: US venous doppler duplex LE DATE OF EXAM: 06/21/2019 12:51 PM COMPARISON: NONE CLINICAL HISTORY: Pain. SIDE PERFORMED: Bilateral TECHNIQUE: The lower extremity deep venous system is examined utilizing real time linear array sonog michele with graded compression, doppler sonography and color-flow sonography. VESSELS IMAGED: External Iliac Vein (EIV) Common Femoral Vein Deep Femoral Vein Greater Saphenous Vein * Femoral Vein Popliteal Vein Small Saphenous Vein * Proximal Calf Veins (* superficial vessels) Severe swelling with pitting edema, technically difficult study more so on the left. Patient unable t o adduct legs. Right Leg: Negative for DVT Left Leg: Negative for DVT IMPRESSION: 1. Bilateral lower extremity ultrasound negative for deep venous thrombosis.
[2019-06-21] MEDS ORDERED: FUROSEMIDE 10 MG/ML 4 ML VIAL IV STA (14:04)
[2019-06-21 14:14] LABS: Appearance,Urine Clear (Clear); Bilirubin,Urine Negative (Negative); Blood,Urine Negative (Negative); Color,Urine Light Yellow; Glucose,Urine (UA) Negative (Negative); Ketones,Urine Negative (Negative); Leukocyte Esterase,Urine Negative (Negative); Nitrite,Urine Negative (Negative); PH, Urine 6.5 (5.0-8.0); Protein,Urine Negative (Negative); Specific Gravity,Urine 1.004 (1.001-1.035); Urobilinogen,Urine <2.0 mg/dL (<2.0)
[2019-06-21] MEDS ORDERED: METOPROLOL TARTRATE 50 MG TAB PO STA (14:41)
[2019-06-21] MEDS ORDERED: NITROGLYCERIN SL TABS 0.4 MG TAB SUBLINGUAL PRN (16:16)
[2019-06-21] MEDS ORDERED: EPINEPHrine 1 MG/ML 1 ML AMP IM PRN (16:16)
[2019-06-21] MEDS ORDERED: ZINC OXIDE 20% OINT 28.4 GM TUBE TOPICAL PRN (16:16)
[2019-06-21] MEDS: IPRATROPIUM-ALBUTEROL 3 ML NEB INHALATION SCH (19:57)
[2019-06-21] MEDS: APIXABAN 5 MG TAB PO SCH (20:59)
[2019-06-21] MEDS: GABAPENTIN 100 MG CAP PO SCH (21:00)
[2019-06-21] MEDS: FUROSEMIDE 10 MG/ML 4 ML VIAL IV SCH (21:00)
[2019-06-21] MEDS ORDERED: NON-FORMULARY DRUG (Rosuvastatin Calcium [Crestor] 40 MG) PO SCH (21:00)
[2019-06-21] MEDS: TAMSULOSIN 0.4 MG CAP.ER.24H PO SCH (21:12)
[2019-06-21] MEDS: METOPROLOL TARTRATE 50 MG TAB PO SCH (21:37)
--- NOTE | 2019-06-22 04:22 | HP ---
HISTORY AND PHYSICAL DATE OF SERVICE: 06/21/2019 CHIEF COMPLAINT: Bilateral leg swelling and as well as hyperkalemia. HISTORY OF PRESENT ILLNESS: This 73-year-old gentleman with a past medical history of multiple medical problems including atrial flutter, hypertension, history of DJD, history of pneumonia, history of CAD, CABG, stent; being followed by Dr. Cavanaugh in the [facility] in the outpatient setting was admitted with bilateral leg cellulitis and leg edema. The patient improved significantly. Patient went home but subsequently the patient was evaluated in the outpatient setting and was found to have hyperkalemia and the patient was sent to [facility]. The potassium currently is only 4.7 but the patient did have history of previous hyperkalemia. The patient was complaining of bilateral leg swelling and pain also and evidence of cellulitis. There is no history of any fever, rigors. No headache, loss of consciousness or seizures at this time. PAST MEDICAL HISTORY: History of recent bilateral leg cellulitis, history of CHF, history hypertension, hyperlipidemia, DJD, history of CAD/CABG, stent. HOME MEDICATIONS: 1. Zinc oxide b.i.d. p.r.n. 2. Crestor 40 mg q.h.s. 3. Riluzole 50 mg p.o. b.i.d. 4. Omeprazole 20 mg p.o. daily. 5. Fish oil 1 p.o. daily. 6. Nitrostat 0.4 mg p.r.n. 7. Lopressor 50 mg p.o. t.i.d. 8. Synthroid ( ) mcg p.o. daily. 9. Combivent 1 puff q.i.d. 10.Neurontin 100 mg p.o. b.i.d. 11.Lasix 40 mg p.o. b.i.d. 12.EpiPen 0.3 mg once p.r.n. 13.Cymbalta 30 mg p.o. 14.Aspirin 160 mg p.o. daily. 15.Eliquis 5 mg p.o. b.i.d. ALLERGIES: BEE POLLEN, ATORVASTATIN. FAMILY HISTORY: History of throat cancer in the family. SOCIAL HISTORY: History of smoking. No history of alcohol intake. REVIEW OF SYSTEMS: ENT: No diminished vision. No diminished hearing. CARDIOVASCULAR SYSTEM: As mentioned earlier. RESPIRATORY: As mentioned earlier. GI: No nausea. : No dysuria. NERVOUS SYSTEM: No numbness or weakness. ALLERGY: No asthma or hayfever. MUSCULOSKELETAL: As mentioned earlier. HEMATOLOGY/ONCOLOGY: No history of anemia. ENDOCRINE: Hypothyroidism. CONSTITUTIONAL: As mentioned earlier. PSYCHIATRY: As mentioned earlier. PHYSICAL EXAMINATION: Alert oriented x3. Pulse 94, blood pressure 150/90, respiration 16, temperature 97.6, pulse ox 98% on room air. HEENT: Conjunctivae normal. Oral mucosa moist. NECK: No jugular venous distention. No lymph node enlargement. CARDIOVASCULAR: S1, S2. RESPIRATORY: Diminished breath sounds at the bases. Scattered rhonchi and crackles. Expiratory wheezing also present. ABDOMEN: Soft, obese, nontender. LEGS: Bilateral leg swelling, left more than right. Significant erythema. No oozing lesions or discharge noted. Pulses felt, diminished. NERVOUS SYSTEM: Higher functions mentioned earlier. Moves all four limbs. No focal motor deficit. LYMPHATICS: No lymph node in neck or axilla. SKIN: Significant erythema of both legs. JOINTS: No active deforming arthropathy. LABS: WBC 9, hemoglobin 16.2. ASSESSMENT: 1. Bilateral leg cellulitis, right more than the left with failure of outpatient treatment. 2. Hyperkalemia as an outpatient, improved now. 3. Atrial flutter history. 4. Hypertension. 5. Hyperlipidemia. 6. History of degenerative joint disease. 7. History of pneumonia. 8. Hypothyroidism. 9. History of congestive heart failure with chronic systolic dysfunction, ejection fraction 40-50 percent. 10.History of appendectomy. 11.History of CAD, CABG, stent. 12.History of nicotine dependence, continued ongoing. 13.Gait dysfunction. RECOMMENDATIONS AND DISCUSSION: This 73-year-old gentleman who presented with multiple complex medical issues, we will monitor the patient closely, continue the current management and symptomatic treatment. Otherwise, at this time I recommend broad-spectrum IV antibiotics, infectious disease evaluation, local treatment, diuretics, repeat labs. Prognosis guarded because of multiple complex medical issues. Further recommendations to follow. MMODL / IJN: [id number] /
[2019-06-22] MEDS: LEVOTHYROXINE 88 MCG TAB PO SCH (06:04)
[2019-06-22] MEDS: IPRATROPIUM-ALBUTEROL 3 ML NEB INHALATION SCH ×4 (07:17→19:18)
[2019-06-22] MEDS: PANTOPRAZOLE 40 MG TABLET PO SCH ×2 (07:43→07:49)
[2019-06-22 07:48] LABS: Basophils % (A) 1 %; Eosinophils # (A) 0.1 k/uL (0-0.7); Eosinophils % (A) 1 %; HCT 47.1 % (39.0-53.0); HGB 14.5 gm/dL (13.0-17.5); Lymphocytes # (A) 1.7 k/uL (1.0-4.8); Lymphocytes % (A) 21 %; MCH 29.9 pg (25.0-35.0); MCHC 30.8 g/dL (31.0-37.0); Mean Platelet Volume 6.4; Monocytes # (A) 0.8 k/uL (0-1.0); Monocytes % (A) 9 %; Neutrophils # (A) 5.3 k/uL (1.3-7.7); Neutrophils % (A) 65 %; Platelet Count 320 k/uL (150-450); RBC 4.85 m/uL (4.30-5.90); RDW 13.7 % (11.5-15.5); WBC 8.2 k/uL (3.8-10.6)
[2019-06-22] MEDS: DOCUSATE 100 MG CAP PO SCH (07:48)
[2019-06-22] MEDS: METOPROLOL TARTRATE 50 MG TAB PO SCH ×3 (07:48→21:59)
[2019-06-22] MEDS: GABAPENTIN 100 MG CAP PO SCH ×2 (07:48→21:59)
[2019-06-22] MEDS: ASPIRIN 81 MG PO SCH (07:49)
[2019-06-22] MEDS: APIXABAN 5 MG TAB PO SCH ×2 (07:49→21:59)
[2019-06-22] MEDS: DULoxetine HCL 30 MG CAPSULE.DR PO SCH (07:49)
[2019-06-22] MEDS: FUROSEMIDE 10 MG/ML 4 ML VIAL IV SCH ×2 (07:49→21:59)
[2019-06-22 08:01] LABS: African American GFR (CKD) >90 (>60 ml/min/1.73 sqM); Anion Gap 4 mmol/L; Blood Urea Nitrogen 12 mg/dL (9-20); Calcium 9.1 mg/dL (8.4-10.2); Carbon Dioxide 34 mmol/L (22-30); Chloride 103 mmol/L (98-107); Glucose 91 mg/dL (74-99); Sodium 141 mmol/L (137-145)
[2019-06-22] MEDS ORDERED: ENOXAPARIN 40 MG/0.4 ML SYRINGE SQ SCH (09:00)
[2019-06-22] MEDS ORDERED: NON-FORMULARY DRUG (Omega-3 Fatty Acids/Fish Oil [Fish Oil 1,000 Mg Softgel] 1 CAP) PO SCH (09:00)
[2019-06-22] MEDS: TAMSULOSIN 0.4 MG CAP.ER.24H PO SCH (17:24)
--- NOTE | 2019-06-22 17:51 | PN ---
PROGRESS NOTE DATE OF SERVICE: 06/22/2019. This 73-year-old gentleman who was admitted with bilateral leg swelling, right more than left, has also significant pain and swelling. The patient is being closely monitored. Patient was also given diuretics. Venous ultrasound was requested. It showed bilateral lower extremity findings; negative for DVT. No chest pain. No palpitations. No fever. Infectious disease evaluation is in progress. PHYSICAL EXAMINATION: Alert and oriented x3. Pulse 66, blood pressure 106/62, respiration 20, temperature 98.8, pulse ox 96% on 3 L. HEENT: Conjunctivae normal. NECK: No jugular venous distention. CARDIOVASCULAR SYSTEM: S1, S2 muffled. RESPIRATORY SYSTEM: Breath sounds diminished at the bases. A few scattered rhonchi. ABDOMEN: Soft, non-tender. LEGS: Bilateral leg swelling, right more than left. NERVOUS SYSTEM: No focal deficit. LABS: CBC within normal limits. Creatinine is 0.44. ASSESSMENT: 1. Bilateral leg cellulitis, right more than the left, with failure of outpatient treatment. 2. Hyperkalemia as an outpatient, improved currently. 3. Atrial flutter history. 4. Hypertension. 5. Hyperlipidemia. 6. History of degenerative joint disease. 7. History of pneumonia. 8. History of hypothyroidism. 9. History of congestive heart failure with chronic systolic dysfunction, ejection fraction 40% to 50%. 10.History of appendectomy. 11.History of coronary artery disease, coronary artery bypass grafting, stent. 12.History of nicotine dependence, continued ongoing. 13.Gait dysfunction. RECOMMENDATIONS AND DISCUSSION: I recommend to continue current medications, continue with the monitoring, symptomatic treatment. The patient is currently on IV Rocephin. We will continue to monitor. Guarded prognosis. Further recommendations to follow. MMODL / IJN: [id number] /
[2019-06-23] MEDS: LEVOTHYROXINE 88 MCG TAB PO SCH (06:20)
[2019-06-23] MEDS: IPRATROPIUM-ALBUTEROL 3 ML NEB INHALATION SCH ×4 (07:13→19:21)
[2019-06-23] MEDS: METOPROLOL TARTRATE 50 MG TAB PO SCH ×3 (08:35→20:59)
[2019-06-23] MEDS: FUROSEMIDE 10 MG/ML 4 ML VIAL IV SCH ×2 (08:35→21:00)
[2019-06-23] MEDS: GABAPENTIN 100 MG CAP PO SCH ×2 (08:35→20:59)
[2019-06-23] MEDS: APIXABAN 5 MG TAB PO SCH ×2 (08:36→21:00)
[2019-06-23] MEDS: ASPIRIN 81 MG PO SCH (08:36)
[2019-06-23] MEDS: DOCUSATE 100 MG CAP PO SCH (08:36)
[2019-06-23] MEDS: DULoxetine HCL 30 MG CAPSULE.DR PO SCH (08:36)
[2019-06-23 09:40] LABS: African American GFR (CKD) >90 (>60 ml/min/1.73 sqM); Anion Gap 5 mmol/L; Blood Urea Nitrogen 12 mg/dL (9-20); Calcium 9.2 mg/dL (8.4-10.2); Carbon Dioxide 36 mmol/L (22-30); Chloride 98 mmol/L (98-107); Glucose 102 mg/dL (74-99); Potassium 4.5 mmol/L (3.5-5.1); Sodium 139 mmol/L (137-145)
[2019-06-23 10:09] LABS: Basophils # (A) 0.1 k/uL (0-0.2); Basophils % (A) 1 %; Eosinophils # (A) 0.2 k/uL (0-0.7); Eosinophils % (A) 3 %; HGB 14.3 gm/dL (13.0-17.5); Lymphocytes # (A) 1.5 k/uL (1.0-4.8); Lymphocytes % (A) 18 %; MCH 30.5 pg (25.0-35.0); MCHC 31.2 g/dL (31.0-37.0); MCV 97.9 fL (80.0-100.0); Mean Platelet Volume 7.5; Monocytes # (A) 0.7 k/uL (0-1.0); Monocytes % (A) 8 %; Neutrophils # (A) 5.9 k/uL (1.3-7.7); Neutrophils % (A) 69 %; Platelet Count 355 k/uL (150-450); RBC 4.69 m/uL (4.30-5.90); RDW 15.1 % (11.5-15.5); WBC 8.5 k/uL (3.8-10.6)
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
[2019-06-23 14:23] VITALS: BMI 25.8
[2019-06-23] MEDS: TAMSULOSIN 0.4 MG CAP.ER.24H PO SCH (18:12)
--- NOTE | 2019-06-23 18:45 | PN ---
PROGRESS NOTE DATE OF SERVICE: 06/23/2019. REASON FOR FOLLOWUP: Bilateral lower extremity cellulitis. INTERVAL HISTORY: The patient is currently afebrile. The patient is breathing comfortably. Denies having any chest pain, shortness of breath or cough. No abdominal pain or any worsening pain to the leg area. PHYSICAL EXAMINATION: Blood pressure 103/63 with a pulse of 64, temperature 97.7. He is 94% on room air. General description is an elderly male lying in bed in no distress. RESPIRATORY SYSTEM: Unlabored breathing. Clear to auscultation anteriorly. HEART: S1, S2. Regular rate and rhythm. ABDOMEN: Soft. No tenderness. Bilateral legs with swelling. Redness has improved. Legs are currently wrapped. No obvious drainage on the dressing. LABS: Hemoglobin is 14.3, white count of 8.5. BUN of 12, creatinine 0.45. Blood culture has been negative. DIAGNOSTIC IMPRESSION AND PLAN: Patient with bilateral lower extremity cellulitis with diffuse swelling with likely streptococcal disease, currently on cefazolin; to continue with the plan to finish therapy with oral Keflex 500 mg t.i.d. for about a week. Continue supportive care. MMODL / IJN: [id number] /
--- NOTE | 2019-06-23 20:21 | PN ---
PROGRESS NOTE DATE OF SERVICE: 06/23/2019. This 73-year-old gentleman who was admitted with bilateral leg cellulitis, right more than left, is being closely monitored at this time. Patient is on IV antibiotics. Patient is being followed by Infectious Disease. No chest pain. No palpitation. The patient is under local treatment also. Ultrasound was negative for DVT. No chest pain. No palpitations. No fever. Cultures are negative so far. PHYSICAL EXAMINATION: Alert and oriented x3. Pulse is 55, blood pressure 103/63, respirations 16, temperature 97.7, pulse ox 94% on room air. HEENT: Conjunctivae normal. NECK: No jugular venous distention. CARDIOVASCULAR SYSTEM: S1, S2 muffled. RESPIRATORY SYSTEM: Breath sounds diminished at the bases. No rhonchi. No crackles. ABDOMEN: Soft. LEGS: Bilateral leg swelling and tenderness. NERVOUS SYSTEM: No focal deficit. LABS: CBC within normal limits. Sodium 139, potassium 4.5. ASSESSMENT: 1. Bilateral leg cellulitis, right more than the left, with failure of outpatient treatment. 2. Hyperkalemia as an outpatient, improved currently. 3. Atrial flutter history. 4. Hypertension. 5. Hyperlipidemia. 6. History of degenerative joint disease. 7. History of pneumonia. 8. History of hypothyroidism. 9. History of congestive heart failure with chronic systolic dysfunction, ejection fraction 40% to 50%. 10.History of appendectomy. 11.History of coronary artery disease, coronary artery bypass grafting, stent. 12.History of nicotine dependence, continued ongoing. 13.History of gait dysfunction. RECOMMENDATIONS AND DISCUSSION: I recommend to continue current medications, continue with the monitoring, symptomatic treatment. I recommend continuing with antibiotics. Guarded prognosis because of multiple complex medical issues. Further recommendations to follow. MMODL / IJN: [id number] /
[2019-06-23] MEDS: SENNOSIDES-DOCUSATE SODIUM 1 EACH TAB PO SCH (20:59)
[2019-06-24] MEDS: LEVOTHYROXINE 88 MCG TAB PO SCH (05:36)
[2019-06-24] MEDS: ASPIRIN 81 MG PO SCH (08:04)
[2019-06-24] MEDS: GABAPENTIN 100 MG CAP PO SCH (08:05)
[2019-06-24] MEDS: PANTOPRAZOLE 40 MG TABLET PO SCH (08:06)
[2019-06-24] MEDS: APIXABAN 5 MG TAB PO SCH ×2 (08:07→20:13)
[2019-06-24] MEDS: FUROSEMIDE 10 MG/ML 4 ML VIAL IV SCH ×2 (08:07→20:13)
[2019-06-24] MEDS: DULoxetine HCL 30 MG CAPSULE.DR PO SCH (08:07)
[2019-06-24] MEDS: METOPROLOL TARTRATE 50 MG TAB PO SCH ×4 (08:09→23:23)
[2019-06-24] MEDS: SENNOSIDES-DOCUSATE SODIUM 1 EACH TAB PO SCH ×2 (08:10→20:13)
[2019-06-24] MEDS: IPRATROPIUM-ALBUTEROL 3 ML NEB INHALATION SCH ×4 (09:11→21:43)
[2019-06-24 09:54] LABS: Basophils # (A) 0.1 k/uL (0-0.2); Basophils % (A) 1 %; Eosinophils # (A) 0.4 k/uL (0-0.7); Eosinophils % (A) 4 %; HCT 45.7 % (39.0-53.0); HGB 14.7 gm/dL (13.0-17.5); Lymphocytes # (A) 1.7 k/uL (1.0-4.8); Lymphocytes % (A) 20 %; MCH 31.6 pg (25.0-35.0); MCHC 32.2 g/dL (31.0-37.0); Mean Platelet Volume 7.1; Monocytes # (A) 0.5 k/uL (0-1.0); Monocytes % (A) 6 %; Neutrophils # (A) 5.7 k/uL (1.3-7.7); Neutrophils % (A) 67 %; Platelet Count 325 k/uL (150-450); RBC 4.66 m/uL (4.30-5.90); RDW 15.5 % (11.5-15.5); WBC 8.5 k/uL (3.8-10.6)
[2019-06-24 10:06] LABS: African American GFR (CKD) >90 (>60 ml/min/1.73 sqM); Anion Gap 7 mmol/L; Blood Urea Nitrogen 13 mg/dL (9-20); Calcium 9.3 mg/dL (8.4-10.2); Carbon Dioxide 36 mmol/L (22-30); Chloride 94 mmol/L (98-107); Glucose 120 mg/dL (74-99); Potassium 4.3 mmol/L (3.5-5.1); Sodium 137 mmol/L (137-145)
[2019-06-24] MEDS: TAMSULOSIN 0.4 MG CAP.ER.24H PO SCH (18:09)
[2019-06-24] MEDS: SILVER sulfADIAZINE Cream 400 GM 1 APPLIC APPLIC TOPICAL SCH (18:10)
--- NOTE | 2019-06-24 20:09 | PN ---
PROGRESS NOTE DATE OF SERVICE: 06/24/2019 This 73-year-old gentleman who was admitted with bilateral leg cellulitis, right more than the left, also had hyperkalemia. The patient is being closely monitored. No chest pain. No palpitations. No fever. The EKG showed some PACs. The potassium is 4.3 at this time. EXAM: Alert and oriented x3. The pulse is 53, blood pressure is 117/60, respiration 18, temperature 98 degrees, pulse ox 98% on 3 L. HEENT: Conjunctivae normal. Oral mucosa moist. NECK: No jugular venous distention. No lymph node enlargement. CARDIOVASCULAR: S1, S2. RESPIRATORY: Diminished breath sounds at the bases. Bilateral scattered rhonchi and crackles. ABDOMEN: Soft, nontender. LEGS: Bilateral leg swelling. Erythema improving.. NERVOUS SYSTEM: No focal deficits. LABS: Potassium 4.2. WBC 8.2, hemoglobin 14.7. ASSESSMENT: 1. Bilateral leg cellulitis, right more the left with failure of outpatient treatment, improving. 2. Hyperkalemia as an outpatient, improved currently. 3. Atrial flutter history. 4. Hypertension. 5. Hyperlipidemia. 6. History of degenerative joint disease. 7. History of pneumonia. 8. History of hypothyroidism. 9. History of congestive heart failure with chronic systolic dysfunction, ejection fraction 40-50 percent. 10.History of appendectomy. 11.History of coronary artery disease, coronary artery bypass graft, stent. 12.History of nicotine dependence, continued ongoing. 13.History of gait dysfunction. RECOMMENDATIONS AND DISCUSSION: Recommend to continue current medications, continue to monitor, continue symptomatic treatment. Otherwise, at this time I recommend continue the antibiotics, monitor closely, repeat labs. Guarded prognosis. Further recommendations to follow. MMODL / IJN: [id number] /
[2019-06-24] MEDS: DOCUSATE 100 MG CAP PO SCH (20:13)
[2019-06-25] MEDS: LEVOTHYROXINE 88 MCG TAB PO SCH (05:59)
[2019-06-25] MEDS: IPRATROPIUM-ALBUTEROL 3 ML NEB INHALATION SCH ×4 (07:27→21:42)
[2019-06-25] MEDS: FUROSEMIDE 10 MG/ML 4 ML VIAL IV SCH ×2 (08:36→21:15)
[2019-06-25] MEDS: APIXABAN 5 MG TAB PO SCH ×2 (08:37→21:15)
[2019-06-25] MEDS: METOPROLOL TARTRATE 50 MG TAB PO SCH ×3 (08:37→21:15)
[2019-06-25] MEDS: DULoxetine HCL 30 MG CAPSULE.DR PO SCH (08:38)
[2019-06-25] MEDS: DOCUSATE 100 MG CAP PO SCH ×2 (08:38→21:15)
[2019-06-25] MEDS: PANTOPRAZOLE 40 MG TABLET PO SCH (08:38)
[2019-06-25] MEDS: SENNOSIDES-DOCUSATE SODIUM 1 EACH TAB PO SCH ×2 (08:38→21:17)
[2019-06-25] MEDS ORDERED: PSEUDOEPHEDRINE 30 MG TAB PO PRN (15:14)
[2019-06-25] MEDS: TAMSULOSIN 0.4 MG CAP.ER.24H PO SCH (17:01)
--- NOTE | 2019-06-25 19:42 | PN ---
PROGRESS NOTE DATE OF SERVICE: 06/25/2019 This 73-year-old gentleman who was admitted with bilateral leg cellulitis right more than left, is being closely monitored at this time. The patient also had hyperkalemia as an outpatient, but improved currently. No chest pain. No palpitations. Infectious Disease following the patient closely. PHYSICAL EXAM: Alert and oriented times three. Pulse is 72. Blood pressure is 132/70, respiration 16, temperature 98.4, pulse ox 98% on room air. HEENT: Conjunctivae normal. NECK: No JVD. CARDIOVASCULAR: S1, S2. RESPIRATIONS: Breath sounds diminished in the bases. No rhonchi. No crackles. ABDOMEN is soft, nontender. LEGS are no edema. No swelling. CENTRAL NERVOUS SYSTEM: No focal deficits. LABORATORY DATA: CBC within normal limits. Sodium 137, potassium 4.3. ASSESSMENT: 1. Bilateral leg cellulitis, right more than the left, with failure of outpatient treatment, improving. 2. Hyperkalemia as an outpatient, improved currently. 3. Atrial flutter history. 4. Hypertension. 5. Hyperlipidemia. 6. History of degenerative joint disease. 7. History of pneumonia. ALS H/o splenectomy 8. History of hypothyroidism. 9. History of congestive heart failure with chronic systolic dysfunction, ejection fraction 45-50 percent. 10.History of appendectomy. 11.History of coronary artery disease, coronary artery bypass grafting, stent. 12.History of nicotine dependence, continued ongoing. 13.History of gait dysfunction. RECOMMENDATIONS AND DISCUSSION: Recommend to continue current medications, monitoring, symptomatic treatment. Continue with antibiotics. Otherwise guarded prognosis because of multiple complex medical issues. further recommendations to follow. MMODL / IJN: [id number] / [facility]
[2019-06-25] MEDS: SILVER sulfADIAZINE Cream 400 GM 1 APPLIC APPLIC TOPICAL SCH (21:21)
--- NOTE | 2019-06-26 01:27 | PN ---
PROGRESS NOTE DATE OF SERVICE: 06/25/2019 REASON FOR FOLLOWUP: Bilateral lower extremity cellulitis. INTERVAL HISTORY: The patient is currently afebrile. Patient has been breathing comfortably. Denies having any chest pain or cough. No nausea, vomiting. No abdominal pain or any worsening pain to the leg area. PHYSICAL EXAMINATION: Blood pressure 120/59 with a pulse of 68, temperature 98.5, she is 95% on 2 L nasal cannula. General description is an elderly male lying in bed in no distress. Respiratory system: Unlabored breathing, clear to auscultation anteriorly. Heart S1, S2. Regular rate and rhythm. Abdomen is soft. Legs are currently dressed, no drainage on the dressing. DIAGNOSTIC IMPRESSION AND PLAN: Patient with bilateral lower extremity cellulitis in this patient who did have a diffuse swelling and redness likely streptococcal disease clinically responding to cefazolin. Continue with the ( ) therapy with oral Keflex for about a week. Continue supportive care. MMODL / IJN: [id number] /
[2019-06-26] MEDS: LEVOTHYROXINE 88 MCG TAB PO SCH (06:09)
[2019-06-26] MEDS: IPRATROPIUM-ALBUTEROL 3 ML NEB INHALATION SCH ×3 (07:24→16:13)
[2019-06-26] MEDS: DULoxetine HCL 30 MG CAPSULE.DR PO SCH (08:05)
[2019-06-26] MEDS: PANTOPRAZOLE 40 MG TABLET PO SCH (08:05)
[2019-06-26] MEDS: DOCUSATE 100 MG CAP PO SCH (08:05)
[2019-06-26] MEDS: SENNOSIDES-DOCUSATE SODIUM 1 EACH TAB PO SCH (08:05)
[2019-06-26] MEDS: METOPROLOL TARTRATE 50 MG TAB PO SCH (08:05)
[2019-06-26] MEDS: APIXABAN 5 MG TAB PO SCH (08:05)
[2019-06-26] MEDS: FUROSEMIDE 10 MG/ML 4 ML VIAL IV SCH (08:06)
--- NOTE | 2019-06-26 12:40 | PN ---
PROGRESS NOTE DATE OF SERVICE: 06/26/2019 REASON FOR FOLLOWUP: Right lower extremity cellulitis. INTERVAL HISTORY: The patient is currently afebrile. The patient has been breathing comfortably. The patient denies having any chest pain. No shortness of breath or cough. No abdominal pain. No pain to the lower extremity. PHYSICAL EXAMINATION: Blood pressure 107/54 with a pulse of 86, temperature 98.9. He is 94% 2 L nasal cannula. General description is an elderly male, lying in bed in no distress. RESPIRATORY SYSTEM: Unlabored breathing, clear to auscultation anteriorly. HEART: S1, S2. Regular rate and rhythm. ABDOMEN: Soft, no tenderness. LEGS: Currently swelling has improved. No redness or open wound or drainage. LABS: No new labs have been obtained today. DIAGNOSTIC IMPRESSION AND PLAN: Patient with bilateral lower extremity cellulitis. The patient did have diffuse swelling and redness likely streptococcal disease. Overall improvement on cefazolin, to finish therapy with oral Keflex. Continue supportive care. MMODL / IJN: [id number] /
[2019-06-26 13:48] VITALS: BP 148/88; RESP 16; TEMP 97.9
[2019-06-26 16:24] VITALS: PULSE 61
--- NOTE | 2019-06-26 22:37 | DS ---
DISCHARGE SUMMARY DATE OF SERVICE: 06/26/2019. FINAL DIAGNOSES: 1. Bilateral leg cellulitis right more than the left with failure of outpatient treatment improving. 2. Hyperkalemia as an outpatient, improved currently. 3. Atrial flutter history. 4. Hypertension. 5. Hyperlipidemia. 6. History of degenerative joint disease. 7. History of pneumonia. 8. History of ALS. 9. History of splenectomy. 10.History of hypothyroidism. 11.History of congestive heart failure with chronic systolic dysfunction, ejection fraction 45 to 50%. 12.History of appendectomy. 13.History of coronary artery disease, coronary artery bypass grafting stent. 14.History of nicotine dependence, continued ongoing. 15.History of gait dysfunction. DISCHARGE DISPOSITION: The patient will be discharged in stable condition with guarded prognosis. HISTORY OF PRESENT ILLNESS: This 73-year-old gentleman with a past medical history of multiple medical problems was admitted with bilateral leg cellulitis. Patient also had found hyperkalemia as an outpatient but potassium was normal during the hospitalization. The patient was closely monitored. The patient was seen by Infectious Disease. The cultures were negative. On exam, vitals are stable. Cardiovascular: S1, S2. Abdomen soft. CENTRAL NERVOUS SYSTEM: No focal deficits. Legs: Minimal cellulitis. DISCHARGE ADVICE AND MEDICATIONS: 1. Discharge diet is cardiac diet. 2. Activity limited until followup. The patient also has urinary difficulties. Patient had multiple straight catheterizations because of lack of improvement, a Wilkinson catheter was inserted for continuous drainage and recommended to follow up with Urology as an outpatient. DISCHARGE ADVICE AND MEDICATIONS: 1. Diet is cardiac diet. 2. Activity limited until follow up. 3. Follow up with Dr. Cavanaugh in the [facility] in 1-2 days. 4. Follow up with Urology as recommended. 5. Follow up with Infectious Disease as recommended by Dr. Chowdhury. MEDICATIONS: 1. Combivent Respimat 1 puff q.i.d. 2. Crestor 40 mg q.h.s. 3. Cymbalta 30 mg p.o. daily. 4. [place] 1 application daily p.r.n. 5. EpiPen 0.3 p.r.n. 6. [place]-3 fatty acids 1 p.o. daily. 7. Lasix 40 mg p.o. b.i.d. 8. Neurontin 100 mg p.o. b.i.d. 9. Nitrostat 0.4 sublingual mg p.r.n. 10.Omeprazole 20 mg p.o. 11.Riluzole 50 mg p.o. b.i.d. 12.Aspirin 160 mg. 13.Synthroid 88 mcg p.o. daily. 14.Colace 100 mg p.o. b.i.d. 15.Eliquis 5 mg p.o. b.i.d. 16.Flomax 0.4 with supper. 17.Keflex 500 mg q.8h for 10 days. 18.Lopressor 50 mg p.o. t.i.d. 19.Senokot-S p.o. b.i.d. p.r.n. Once again, the patient discharged in stable condition with guarded prognosis. MMETHELL / AMANDAN: [id number] /
== END 2019-06-26 16:54 | disposition home health service (06) | DRG 603 ==
LOC: EC 11:18 → 4MS4W 14:21 → OBSVTOIN 06-24 15:21
PROVIDERS: ADMIT Hospitalist; ATTEND Hospitalist
DX: L03.115 Cellulitis of right lower limb (principal); I50.22 Chronic systolic (congestive) heart failure; L03.116 Cellulitis of left lower limb; E87.5 Hyperkalemia; I11.0 Hypertensive heart disease with heart failure; E78.5 Hyperlipidemia, unspecified; E03.9 Hypothyroidism, unspecified; G47.30 Sleep apnea, unspecified; R26.9 Unspecified abnormalities of gait and mobility; M19.90 Unspecified osteoarthritis, unspecified site; F17.210 Nicotine dependence, cigarettes, uncomplicated; Z98.1 Arthrodesis status; Z95.1 Presence of aortocoronary bypass graft; Z90.81 Acquired absence of spleen; Z79.82 Long term (current) use of aspirin; Z79.890 Hormone replacement therapy; Z79.899 Other long term (current) drug therapy; Z79.51 Long term (current) use of inhaled steroids; Z79.01 Long term (current) use of anticoagulants; Z87.01 Personal history of pneumonia (recurrent); Z80.8 Family history of malignant neoplasm of other organs or systems; Z82.49 Family history of ischemic heart disease and other diseases of the circulatory system; Z82.3 Family history of stroke; Z95.5 Presence of coronary angioplasty implant and graft; I25.10 Atherosclerotic heart disease of native coronary artery without angina pectoris; Z90.49 Acquired absence of other specified parts of digestive tract; Z88.8 Allergy status to other drugs, medicaments and biological substances; Z91.030 Bee allergy status; Z99.89 Dependence on other enabling machines and devices; Z98.890 Other specified postprocedural states; Z80.9 Family history of malignant neoplasm, unspecified; Z74.01 Bed confinement status
CPT/HCPCS: 36415; 80048; 80053; 81003; 83735; 84100; 85025; 87040; 93005; 93970; 94640; 94760; 96365; 96366; 96375; 99285

== ENCOUNTER 2019-07-25 19:53 | Inpatient (IN) | payer OTHER, MEDICARE ==
[2019-07-25] MEDS ORDERED: SODIUM CHLORIDE 0.9% 1,000 ML IV STA (20:10)
[2019-07-25] MEDS ORDERED: IPRATROPIUM-ALBUTEROL 3 ML NEB INHALATION STA (20:10)
[2019-07-25] MEDS ORDERED: methylPREDNISolone SOD SUCCI 125 MG/2 ML VIAL IV STA (20:10)
[2019-07-25 20:49] LABS: Basophils # (A) 0.3 k/uL (0-0.2); Basophils % (A) 2 %; Eosinophils # (A) 0.2 k/uL (0-0.7); Eosinophils % (A) 1 %; HCT 46.7 % (39.0-53.0); HGB 14.7 gm/dL (13.0-17.5); Lymphocytes # (A) 1.6 k/uL (1.0-4.8); Lymphocytes % (A) 7 %; MCH 30.6 pg (25.0-35.0); MCHC 31.4 g/dL (31.0-37.0); MCV 97.5 fL (80.0-100.0); Mean Platelet Volume 7.2; Monocytes # (A) 1.4 k/uL (0-1.0); Monocytes % (A) 6 %; Neutrophils # (A) 18.6 k/uL (1.3-7.7); Neutrophils % (A) 83 %; Platelet Count 346 k/uL (150-450); RBC 4.79 m/uL (4.30-5.90); RDW 13.4 % (11.5-15.5); WBC 22.5 k/uL (3.8-10.6)
[2019-07-25 20:57] LABS: ALT 23 U/L (21-72); AST 31 U/L (17-59); African American GFR (CKD) >90 (>60 ml/min/1.73 sqM); Albumin 3.7 g/dL (3.5-5.0); Alkaline Phosphatase 65 U/L (38-126); Anion Gap 10 mmol/L; Blood Urea Nitrogen 14 mg/dL (9-20); Calcium 9.2 mg/dL (8.4-10.2); Carbon Dioxide 29 mmol/L (22-30); Chloride 92 mmol/L (98-107); Creatine Kinase 134 U/L (55-170); Glucose 140 mg/dL (74-99); Magnesium 1.9 mg/dL (1.6-2.3); Sodium 131 mmol/L (137-145); Total Bilirubin 0.5 mg/dL (0.2-1.3); Total Protein 7.2 g/dL (6.3-8.2)
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
[2019-07-25 21:24] LABS: Partial Thromboplastin Time 25.9 sec (22.0-30.0); Prothrombin Time 10.6 sec (9.0-12.0)
--- NOTE | 2019-07-25 21:36 | XR ---
EXAMINATION TYPE: XR chest 2V DATE OF EXAM: 07/25/2019 COMPARISON: 04/17/2019 HISTORY: Short of breath TECHNIQUE: Frontal and lateral views of the chest are obtained. FINDINGS: There is some linear density at the left lung base related to atelectasis. There is also m inimal linear density right lung base. There is no heart failure. Heart size is normal. There are abel rnal wires. IMPRESSION: There is increasing atelectasis at the lung bases compared to last exam. No heart failur e.
[2019-07-25] MEDS ORDERED: PNEUMONIA PROTOCOL UTILIZED 1 EACH MISC PO PRN (22:51)
[2019-07-25] MEDS ORDERED: AZITHROMYCIN 500 MG in SODIUM CHLORIDE 0.9% 250 ML IVPB STA (22:51)
[2019-07-25] MEDS ORDERED: SENNOSIDES-DOCUSATE SODIUM 1 EACH TAB PO PRN (22:54)
[2019-07-25] MEDS ORDERED: SPIRONOLACTONE 25 MG TAB PO PRN (22:54)
[2019-07-25] MEDS ORDERED: NITROGLYCERIN SL TABS 0.4 MG TAB SUBLINGUAL PRN (22:54)
[2019-07-25] MEDS ORDERED: ZINC OXIDE TOPICAL PRN (22:54)
[2019-07-25] MEDS: SODIUM CHLORIDE 0.9% 1,000 ML IV SCH (23:20)
[2019-07-26] MEDS: IPRATROPIUM-ALBUTEROL 3 ML NEB INHALATION SCH ×6 (00:21→20:37)
[2019-07-26] MEDS: methylPREDNISolone SOD SUCCI 125 MG/2 ML VIAL IV SCH ×5 (00:33→23:55)
[2019-07-26] MEDS: LEVOTHYROXINE 88 MCG TAB PO SCH (05:25)
[2019-07-26] MEDS ORDERED: NON FORMULARY DRUG (Garlic [Garlic] 1 TAB) PO SCH (09:00)
[2019-07-26] MEDS ORDERED: MILK THISTLE 150 MG PO SCH (09:00)
[2019-07-26] MEDS ORDERED: NON FORMULARY DRUG (Omega-3 Fatty Acids/Fish Oil [Fish Oil 1,000 Mg Softgel] 1 CAP) PO SCH (09:00)
[2019-07-26] MEDS ORDERED: NON FORMULARY DRUG (Vit C/E/Zn/Coppr/Lutein/Zeaxan [Preservision Areds 2 Softgel] 1 CAP) PO SCH (09:00)
[2019-07-26] MEDS ORDERED: NON FORMULARY DRUG (Ubidecarenone [Co Q-10] 100 MG) PO SCH (09:00)
[2019-07-26] MEDS: ASCORBIC ACID 500 MG TAB PO SCH (09:14)
[2019-07-26] MEDS: FUROSEMIDE 40 MG TAB PO SCH ×2 (09:15→21:00)
[2019-07-26] MEDS: PANTOPRAZOLE 40 MG TABLET PO SCH (09:15)
[2019-07-26] MEDS: APIXABAN 5 MG TAB PO SCH ×2 (09:15→21:01)
[2019-07-26] MEDS: DULoxetine HCL 30 MG CAPSULE.DR PO SCH (09:15)
[2019-07-26] MEDS: CHOLECALCIFEROL 1,000 UNIT TAB PO SCH (09:15)
[2019-07-26] MEDS: DOCUSATE 100 MG CAP PO SCH ×2 (09:15→21:01)
[2019-07-26] MEDS: METOPROLOL TARTRATE 50 MG TAB PO SCH ×3 (09:15→21:00)
[2019-07-26] MEDS: SODIUM CHLORIDE 0.9% 1,000 ML IV SCH ×2 (09:20→21:02)
[2019-07-26] MEDS: Riluzole [Rilutek] 50 MG PO SCH ×2 (10:54→21:02)
[2019-07-26] MEDS ORDERED: HYDROcodone/APAP 5-325MG 1 EACH TAB PO PRN (13:20)
[2019-07-26] MEDS ORDERED: ALPRAZolam 0.25 MG TAB PO PRN (13:20)
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
[2019-07-26] MEDS: SPIRONOLACTONE 25 MG TAB PO SCH (13:55)
[2019-07-26 14:12] LABS: ALT 16 U/L (21-72); AST 27 U/L (17-59); African American GFR (CKD) >90 (>60 ml/min/1.73 sqM); Albumin 3.6 g/dL (3.5-5.0); Alkaline Phosphatase 56 U/L (38-126); Anion Gap 8 mmol/L; Blood Urea Nitrogen 13 mg/dL (9-20); Calcium 9.2 mg/dL (8.4-10.2); Carbon Dioxide 32 mmol/L (22-30); Chloride 96 mmol/L (98-107); Glucose 179 mg/dL (74-99); Sodium 136 mmol/L (137-145); Total Bilirubin 0.5 mg/dL (0.2-1.3); Total Protein 7.1 g/dL (6.3-8.2)
[2019-07-26 14:16] LABS: Potassium 4.7 mmol/L (3.5-5.1)
--- NOTE | 2019-07-26 16:54 | HP ---
HISTORY AND PHYSICAL CHIEF COMPLAINTS: Shortness of breath and cough. HISTORY OF PRESENT ILLNESS: This 73-year-old gentleman with a past medical history of multiple medical problems, including atrial flutter, history of hypertension, hyperlipidemia, history of DJD, history of pneumonia, history of hypothyroidism, history of CAD, CABG, stent, being followed by Dr. Cavanaugh in the [facility], was complaining of shortness of breath. The patient also had some cough and sputum. After nebulizer was given by EMS, the patient felt slightly better, but still because of increasing shortness of breath, the patient came to [facility]. Chest x-ray showed bilateral pneumonia, left more than the right, and the patient was admitted for further evaluation and treatment. There is no history of any fever, rigor or chills. No history of headache, loss of consciousness, seizures. PAST MEDICAL HISTORY: 1. Atrial flutter. 2. Hyperlipidemia. 3. Hypertension. 4. History of DJD. 5. History of pneumonia. 6. History of recent cellulitis. 7. History of CAD, stent, CABG. 8. History of splenectomy. 9. History of generalized weakness diagnosed as ALS from [facility]. HOME MEDICATIONS: 1. Desitin 1 application b.i.d. p.r.n. 2. Flomax 0.4 daily. 3. Aldactone 25 mg daily p.r.n. 4. Senokot-S 1 tablet b.i.d. p.r.n. 5. Saw [place] 160 mg p.o. at bedtime. 6. Nitrostat 0.4 sublingually p.r.n. 7. Garlic 1 tablet p.o. daily. 8. Epinephrine p.r.n. 9. Vitamin D3 1000 daily. 10.Vitamin C, zinc, lutein 1 capsule b.i.d. 11.Co-enzyme Q 100 mg p.o. daily. 12.Milk thistle 150 mg p.o. daily. 13.Vitamin C 500 mg p.o. daily. 14.Rilutek 50 mg p.o. b.i.d. 15.Omeprazole 20 mg p.o. daily. 16.Fish oil 1 gram daily. 17.Lopressor 50 mg p.o. t.i.d. 18.Synthroid 80 mcg p.o. daily. 19.Combivent 1 puff q.i.d. 20.Lasix 40 mg p.o. b.i.d. 21.Colace 100 mg p.o. b.i.d. 22.Cymbalta 30 mg p.o. daily. 23.Eliquis 5 mg p.o. b.i.d. ALLERGIES: 1. BEE POLLEN. 2. ATORVASTATIN. FAMILY HISTORY: History of cancer, throat cancer in the family. SOCIAL HISTORY: History of smoking, continued and ongoing. No history of alcohol intake. REVIEW OF SYSTEMS: ENT: Diminished hearing. Diminished vision. CARDIOVASCULAR SYSTEM: No angina, palpitations. RESPIRATORY SYSTEM: No cough, hemoptysis. GI: No nausea, vomiting. : No dysuria or retention. NERVOUS SYSTEM: No numbness, weakness. ALLERGY/IMMUNOLOGY: No asthma, hayfever. MUSCULOSKELETAL: As mentioned earlier. HEMATOLOGY/ONCOLOGY: No history of anemia. ENDOCRINE: No history of diabetes, hypothyroidism. CONSTITUTIONAL: As mentioned earlier. DERMATOLOGY: Negative. RHEUMATOLOGY: Negative. PSYCHIATRY: As mentioned earlier. PHYSICAL EXAMINATION: Patient alert and oriented x3. Pulse is 72, blood pressure 124/76, respirations 16, temperature 98.4, pulse ox 98% on 3 L. HEENT: Conjunctivae normal. NECK: No jugular venous distention. NAUSEA CARDIOVASCULAR SYSTEM: S1, S2 muffled. RESPIRATORY SYSTEM: Breath sounds diminished at the bases. Bilateral scattered rhonchi and crackles. Expiratory wheezing also heard. ABDOMEN: Soft, non-tender. No mass palpable. LEGS: No edema. No swelling. NERVOUS SYSTEM: Higher functions as mentioned earlier. Moves all 4 limbs. No focal motor or sensory deficit. LYMPHATICS: No lymph node palpable in neck, axillae or groin. SKIN: No ulcer, rash, bleeding. JOINTS: No active deforming arthropathy. LABS: WBC 22.5, hemoglobin 14.7, sodium 131. ASSESSMENT: 1. Shortness of breath, acute bilateral pneumonia, possibly community-acquired, with possible sepsis, present on admission. 2. Increased white count. 3. Hyponatremia. 4. History of recent cellulitis. 5. History of atrial flutter. 6. Hypertension. 7. Hyperlipidemia. 8. History of degenerative joint disease. 9. History of pneumonia. 10.History of ALS diagnosed at [facility]. 11.History of splenectomy. 12.History of hypothyroidism. 13.History of congestive heart failure with chronic systolic dysfunction, ejection fraction 45% to 50%. 14.History of appendectomy. 15.History of coronary artery disease, coronary artery bypass grafting, stent. 16.History of nicotine dependence, ongoing, continued. 17.History of gait dysfunction. RECOMMENDATIONS AND DISCUSSION: I recommend to continue current medications, continue with the monitoring, symptomatic treatment. I will initiate broad-spectrum IV antibiotics. Cultures. Would also recommend pulmonology and cardiology recommendations. Otherwise, the prognosis is guarded because of multiple complex medical issues. Further recommendations to follow. IV steroids have been initiated as well as intensive bronchodilator treatment. See orders for further details. Resume the home medications. Prognosis guarded. Further recommendations to follow. MMODL / IJN: [id number] /
--- NOTE | 2019-07-26 18:53 | XR ---
EXAMINATION TYPE: XR chest 2V DATE OF EXAM: 07/26/2019 COMPARISON: Prior chest x-ray from yesterday. HISTORY: Pneumonia progress study. TECHNIQUE: Frontal and lateral views of the chest are obtained. FINDINGS: Overlying sternal wires and mediastinal clips are redemonstrated. Persistent bibasilar opac ities. Cardiac silhouette size stable and within normal limits with atherosclerotic aorta. Osseous st ructures remain demineralized. IMPRESSION: Patchy bibasilar atelectasis and/or infiltrates remain present. No significant change f rom prior.
[2019-07-26] MEDS: SYMBICORT 160-4.5 MCG INHALER INHALATION SCH (20:37)
[2019-07-26] MEDS ORDERED: SAW PALMETTO 160 MG PO SCH (21:00)
[2019-07-26] MEDS: TAMSULOSIN 0.4 MG CAP.ER.24H PO SCH (21:01)
[2019-07-26] MEDS: AZITHROMYCIN 500 MG TAB PO SCH (23:56)
[2019-07-27] MEDS: methylPREDNISolone SOD SUCCI 125 MG/2 ML VIAL IV SCH ×2 (05:17→12:06)
[2019-07-27] MEDS: LEVOTHYROXINE 88 MCG TAB PO SCH (05:17)
[2019-07-27] MEDS: SODIUM CHLORIDE 0.9% 1,000 ML IV SCH ×2 (05:18→17:24)
[2019-07-27] MEDS: IPRATROPIUM-ALBUTEROL 3 ML NEB INHALATION SCH ×4 (07:45→18:53)
[2019-07-27] MEDS: DOCUSATE 100 MG CAP PO SCH ×2 (08:19→21:18)
[2019-07-27] MEDS: APIXABAN 5 MG TAB PO SCH ×2 (08:19→21:18)
[2019-07-27] MEDS: CHOLECALCIFEROL 1,000 UNIT TAB PO SCH (08:19)
[2019-07-27] MEDS: SPIRONOLACTONE 25 MG TAB PO SCH (08:19)
[2019-07-27] MEDS: DULoxetine HCL 30 MG CAPSULE.DR PO SCH (08:19)
[2019-07-27] MEDS: METOPROLOL TARTRATE 50 MG TAB PO SCH ×3 (08:19→21:18)
[2019-07-27] MEDS: ASCORBIC ACID 500 MG TAB PO SCH (08:19)
[2019-07-27] MEDS: PANTOPRAZOLE 40 MG TABLET PO SCH (08:19)
[2019-07-27] MEDS: FUROSEMIDE 40 MG TAB PO SCH ×2 (08:19→21:18)
[2019-07-27 08:25] LABS: Basophils # (A) 0.1 k/uL (0-0.2); Basophils % (A) 0 %; Eosinophils # (A) 0.1 k/uL (0-0.7); Eosinophils % (A) 0 %; HCT 44.5 % (39.0-53.0); HGB 13.4 gm/dL (13.0-17.5); Hypochromasia Slight; Lymphocytes # (A) 1.3 k/uL (1.0-4.8); Lymphocytes % (A) 6 %; MCH 29.7 pg (25.0-35.0); MCHC 30.1 g/dL (31.0-37.0); MCV 98.6 fL (80.0-100.0); Mean Platelet Volume 7.3; Monocytes # (A) 0.9 k/uL (0-1.0); Monocytes % (A) 4 %; Neutrophils # (A) 19.9 k/uL (1.3-7.7); Neutrophils % (A) 89 %; Platelet Count 376 k/uL (150-450); RBC 4.52 m/uL (4.30-5.90); RDW 13.6 % (11.5-15.5); WBC 22.4 k/uL (3.8-10.6)
[2019-07-27] MEDS: SYMBICORT 160-4.5 MCG INHALER INHALATION SCH ×2 (09:07→18:53)
[2019-07-27] MEDS: Riluzole [Rilutek] 50 MG PO SCH ×2 (12:02→21:07)
--- NOTE | 2019-07-27 16:01 | P.PN ---
Subjective Progress Note Date: 07/27/19 Principal diagnosis: Acute exacerbation of chronic obstructive pulmonary disease, complicated by purulent tracheobronchitis and possible bibasilar pneumonia. The patient is seen today 07/27/2019 in follow-up on the regular medical floor. He is currently resting comfortably in bed. Awake and alert in no acute distress. Breathing a bit easier today as compared to yesterday. He is maintaining O2 saturations in the 90s on 2 L/m per nasal cannula. He is afebrile. Hemodynamically stable. Blood culture reveals no growth to date. Sputum cultures pending. White count 22.4. Hemoglobin 13.4. He remains on DuoNeb inhalations, Symbicort, IV Solu-Medrol, antibiotics in the form of ceftriaxone. Objective - Vital Signs Vital signs: Vital Signs Temp 97.9 F 07/27/19 14:42 Pulse 69 07/27/19 14:42 Resp 17 07/27/19 14:42 BP 120/66 07/27/19 14:42 Pulse Ox 94 L 07/27/19 14:42 Intake & Output 07/26/19 07/27/19 07/27/19 18:59 06:59 18:59 Intake Total 500 618 Output Total 2100 2325 Balance -2099 618 Intake: Intake, IV Titration 500 500 Amount Sodium Chloride 0.9% 1, 500 000 ml @ 100 mls/hr IV . Q10H GILLIAN Rx#:[id number] Sodium Chloride 0.9% 1, 500 000 ml @ 50 mls/hr IV . Q20H STA Rx#:[id number] Oral 118 Output: Urine 2099 2325 Other: Voiding Method Indwelling Catheter Indwelling Catheter - Exam GENERAL EXAM: Alert, pleasant 73-year-old gentleman, on 2 L nasal cannula, comfortable in no apparent distress. HEAD: Normocephalic. EYES: Normal reaction of pupils, equal size. NOSE: Clear with pink turbinates. THROAT: No erythema or exudates. NECK: No masses, no JVD. CHEST: No chest wall deformity. LUNGS: Equal air entry with crackles in the bilateral posterior bases. CVS: S1 and S2 normal with no audible murmur, regular rhythm. ABDOMEN: No hepatosplenomegaly, normal bowel sounds, no guarding or rigidity. SPINE: No scoliosis or deformity SKIN: No rashes CENTRAL NERVOUS SYSTEM: No focal deficits, tone is normal in all 4 extremities. EXTREMITIES: There is no peripheral edema. No clubbing, no cyanosis. Peripheral pulses are intact. - Labs CBC & Chem 7: 07/27/19 07:41 07/26/19 13:40 Labs: Abnormal Lab Results - Last 24 Hours (Table) 07/27/19 Range/Units 07:41 WBC 22.4 H (3.8-10.6) k/uL MCHC 30.1 L (31.0-37.0) g/dL Neutrophils # 19.9 H (1.3-7.7) k/uL Microbiology - Last 24 Hours (Table) 07/25/19 23:15 Blood Culture - Preliminary Blood No Growth after 24 hours 07/26/19 04:19 Gram Stain - Preliminary Sputum Sputum Culture - Preliminary Assessment and Plan Assessment: Impression: #1 Acute hypoxic respiratory failure secondary to an acute exacerbation of chronic obstructive pulmonary disease, complicated by bibasilar pneumonia. #2 Chronic and ongoing tobacco dependence. #3 History of ALS. #4 Hypothyroidism. #5 History of atrial flutter, anticoagulated with Eliquis. #6 Hypertension. #7 Hyperlipidemia. #8 Osteoarthritis. #9 History of bilateral cellulitis. #10 History of dysphagia. Plan: The patient was seen and evaluated by Dr. Ortega. He is improved today as compared to yesterday. We'll continue with the current treatment plan. He is again educated regarding the importance of complete smoking cessation. NicoDerm patch is in place. We'll increase his activity as tolerated. We'll continue to follow. I, the cosigning physician, performed a history & physical examination of the patient. Lungs sounds with crackles in the bilateral posterior bases. Maintaining good O2 saturations in the 90s on 2 L/m per nasal cannula. I discussed the assessment and plan of care with my nurse practitioner, Akosua Phan . I attest to the above note as dictated by her.
[2019-07-27] MEDS: NICOTINE 14MG/24HR PATCH TRANSDERM SCH (16:24)
[2019-07-27] MEDS: TAMSULOSIN 0.4 MG CAP.ER.24H PO SCH (16:26)
[2019-07-27] MEDS: methylPREDNISolone SOD SUCCI 40 MG/ML 1 ML VIAL IV SCH ×2 (16:26→23:37)
[2019-07-27 17:01] LABS: Glucose,Whole Blood 163 mg/dL (75-99)
[2019-07-27] MEDS: INSULIN ASPART (NovoLOG) 100 UNIT/ML VIAL SQ SCH ×2 (17:18→21:17)
--- NOTE | 2019-07-27 17:50 | PN ---
PROGRESS NOTE DATE OF SERVICE: 07/27/2019 This 73-year-old gentleman, admitted with shortness of breath and cough with features of possible community-acquired pneumonia and sepsis, is being closely monitored. No chest pain. No palpitations. No fever. Repeat chest x-ray was reviewed personally by me and the patient is also closely monitored by Pulmonary. Past medical history reviewed. REVIEW OF SYSTEMS: CARDIOVASCULAR SYSTEM: No angina, palpitations. RESPIRATORY SYSTEM: As mentioned earlier. GI: As mentioned earlier. : No dysuria or retention. NERVOUS SYSTEM: No numbness, weakness. CURRENT MEDICATIONS: Reviewed. They include: 1. [place] 5 mg p.o. q.6 p.r.n. 2. DuoNeb q.i.d. and p.r.n. 3. Xanax 0.25 t.i.d. 4. Eliquis 5 mg p.o. b.i.d. 5. Vitamin C 500 mg daily. 6. Zithromax 500 mg daily. 7. Symbicort 160/4.5 two puffs b.i.d. 8. Rocephin 1 gram daily. 9. Vitamin D3. 10.Colace. 11.Cymbalta 30 mg daily. 12.Lasix 40 mg b.i.d. 13.Synthroid 88 mcg p.o. daily. 14.Solu-Medrol 60 IV q.6. 15.Lopressor. 16.Nitrostat. 17.Riluzole. 18.Protonix. 19.Aldactone. 20.Flomax. PHYSICAL EXAMINATION: Patient is alert, oriented x3. Pulse is 69, blood pressure 120/60, respiration 17, temperature 97.9, pulse ox 94% on 2 L. HEENT: Conjunctivae normal. NECK: No jugular venous distention. CARDIOVASCULAR SYSTEM: S1, S2 muffled. RESPIRATORY SYSTEM: Breath sounds diminished at the bases. A few scattered rhonchi and crackles. ABDOMEN: Soft, non-tender. LEGS: No edema. No swelling. NERVOUS SYSTEM: No focal deficit. LABS: WBC 22.4, hemoglobin 13.4. ASSESSMENT: 1. Shortness of breath with acute bilateral pneumonia, possibly community-acquired, with possible sepsis, present on admission. 2. Increased white count. 3. Hyponatremia. 4. History of recent cellulitis. 5. History of atrial flutter. 6. Hypertension. 7. Hyperlipidemia. 8. History of degenerative joint disease. 9. History of pneumonia. 10.History of ALS diagnosed at [facility]. 11.History of splenectomy. 12.History of hypothyroidism. 13.History of congestive heart failure with chronic systolic dysfunction, ejection fraction 45% to 50%. 14.History of appendectomy. 15.History of coronary artery disease, coronary artery bypass grafting, stent. 16.History of nicotine dependence, continued ongoing. 17.History of gait dysfunction. RECOMMENDATIONS AND DISCUSSION: I recommend to continue current medications, continue with the monitoring, symptomatic treatment. Continue with antibiotics. Follow the cultures. The blood cultures and sputum cultures have been negative so far. Closely monitor with multiple consultants. Taper the steroids. Repeat labs in the morning. Prognosis guarded. Further recommendations to follow. MMODL / IJN: [id number] /
[2019-07-27 21:16] LABS: Glucose,Whole Blood 212 mg/dL (75-99)
[2019-07-27] MEDS: AZITHROMYCIN 500 MG TAB PO SCH (23:37)
[2019-07-28] MEDS: LEVOTHYROXINE 88 MCG TAB PO SCH (05:48)
[2019-07-28 07:05] LABS: Glucose,Whole Blood 110 mg/dL (75-99)
[2019-07-28] MEDS: INSULIN ASPART (NovoLOG) 100 UNIT/ML VIAL SQ SCH ×4 (07:13→22:01)
[2019-07-28] MEDS: IPRATROPIUM-ALBUTEROL 3 ML NEB INHALATION SCH ×4 (07:30→20:00)
[2019-07-28] MEDS: SYMBICORT 160-4.5 MCG INHALER INHALATION SCH ×2 (07:30→20:02)
[2019-07-28] MEDS: FUROSEMIDE 40 MG TAB PO SCH ×2 (07:53→22:00)
[2019-07-28] MEDS: SPIRONOLACTONE 25 MG TAB PO SCH (07:53)
[2019-07-28] MEDS: DOCUSATE 100 MG CAP PO SCH ×2 (07:53→22:00)
[2019-07-28] MEDS: METOPROLOL TARTRATE 50 MG TAB PO SCH ×3 (07:53→22:00)
[2019-07-28] MEDS: methylPREDNISolone SOD SUCCI 40 MG/ML 1 ML VIAL IV SCH (07:54)
[2019-07-28] MEDS: APIXABAN 5 MG TAB PO SCH ×2 (07:54→22:00)
[2019-07-28] MEDS: DULoxetine HCL 30 MG CAPSULE.DR PO SCH (07:54)
[2019-07-28] MEDS: NICOTINE 14MG/24HR PATCH TRANSDERM SCH (07:54)
[2019-07-28] MEDS: ASCORBIC ACID 500 MG TAB PO SCH (07:54)
[2019-07-28] MEDS: PANTOPRAZOLE 40 MG TABLET PO SCH (07:54)
[2019-07-28] MEDS: CHOLECALCIFEROL 1,000 UNIT TAB PO SCH (07:54)
[2019-07-28 08:22] LABS: Basophils % (A) 0 %; Eosinophils % (A) 0 %; HGB 13.6 gm/dL (13.0-17.5); Lymphocytes # (A) 2.2 k/uL (1.0-4.8); Lymphocytes % (A) 11 %; MCH 30.9 pg (25.0-35.0); MCHC 31.7 g/dL (31.0-37.0); MCV 97.3 fL (80.0-100.0); Mean Platelet Volume 6.2; Monocytes # (A) 0.8 k/uL (0-1.0); Monocytes % (A) 4 %; Neutrophils # (A) 16.4 k/uL (1.3-7.7); Neutrophils % (A) 84 %; Platelet Count 360 k/uL (150-450); RBC 4.42 m/uL (4.30-5.90); RDW 13.2 % (11.5-15.5); WBC 19.6 k/uL (3.8-10.6)
[2019-07-28 11:27] LABS: Glucose,Whole Blood 122 mg/dL (75-99)
[2019-07-28] MEDS: Riluzole [Rilutek] 50 MG PO SCH ×2 (11:55→22:05)
--- NOTE | 2019-07-28 15:50 | PN ---
PROGRESS NOTE DATE OF SERVICE: 07/28/2019 This is a 73-year-old male who was seen in consultation a couple of days ago. His diagnosis was that of acute hypoxemic respiratory failure secondary to COPD exacerbation complicated by bibasilar pneumonia. In addition, he had a history of ongoing tobacco use, recent diagnosis of ALS, hypothyroidism, atrial flutter, hypertension, hyperlipidemia, osteoarthritis, bilateral lower extremity cellulitis and dysphagia. The patient seems to be doing relatively well. His breathing is much improved. The patient is not sure about possible discharge. The patient was diagnosed as having ALS at [facility] recently. He was started on a new medication for that. Currently he has no particular complaints. He states his breathing has improved. PHYSICAL EXAMINATION: VITAL SIGNS: Current vital signs include a temperature 97.6, heart rate 65, respiratory rate 16, blood pressure 135/74, and a two-liter saturation of 96%. GENERAL APPEARANCE: He appears in no acute distress. HEENT: HEENT examination is grossly unremarkable. Membranes are moist. No oral lesions. NECK: Supple. Full range of motion. Neck veins are flat. CARDIOVASCULAR: Cardiovascular examination reveals regular rhythm and rate. Heart rate in the mid 60s. S1, S2 normal. No murmur. LUNGS: Lungs reveal a few scattered mild rhonchi. Breath sounds are dramatically improved. A few scattered mild wheezes. No crackles. His exam has improved significantly since the day of our consultation. ABDOMEN: Soft. Bowel sounds are heard. EXTREMITIES: Extremities are intact. No cyanosis, clubbing or edema. SKIN: Without rash. NEUROLOGIC: Neurologic examination is brief but nonfocal. LABS/IMAGING: White count is 19.6, hemoglobin 13.6, hematocrit 43.0, platelet count 360,000. Most recent chest x-ray was on 07/26/2019, which showed patchy bibasilar atelectasis and/or infiltrates. Microbiology is pending or negative. MEDICATIONS: Medications are reviewed. He is currently on Zithromax and Rocephin for his community- acquired pneumonia. In addition, the patient is on Symbicort and updrafts. He is also on Solu-Medrol 40 mg q.8, which could be converted to prednisone 30 mg a day. The rest of his medications appear appropriate. ASSESSMENT: 1. Chronic obstructive pulmonary disease exacerbation complicated by bibasilar pneumonia, much improved clinically. 2. Acute hypoxemic respiratory failure secondary to chronic obstructive pulmonary disease exacerbation. 3. Chronic and ongoing tobacco dependence. 4. History of ALS. 5. Hypothyroidism. 6. History of atrial flutter. 7. Hypertension. 8. Hyperlipidemia. 9. Osteoarthritis. 10.History of bilateral cellulitis. 11.History of dysphagia. PLAN: Overall, the patient is doing well. Will discontinue his Solu-Medrol in favor of prednisone 30 mg a day. The rest of his medications appear appropriate. Additional recommendations and suggestions are forthcoming. Will make sure that we see the patient in the outpatient setting to further quantify his COPD. MMODL / IJN: [id number] /
[2019-07-28 16:59] LABS: Glucose,Whole Blood 111 mg/dL (75-99)
[2019-07-28] MEDS: TAMSULOSIN 0.4 MG CAP.ER.24H PO SCH (18:12)
[2019-07-28 21:38] LABS: Glucose,Whole Blood 146 mg/dL (75-99)
[2019-07-28] MEDS: AZITHROMYCIN 500 MG TAB PO SCH (23:16)
[2019-07-29] MEDS: LEVOTHYROXINE 88 MCG TAB PO SCH (05:34)
[2019-07-29 07:20] LABS: Glucose,Whole Blood 76 mg/dL (75-99)
[2019-07-29 07:21] LABS: Basophils # (A) 0.1 k/uL (0-0.2); Basophils % (A) 1 %; Eosinophils % (A) 0 %; HCT 45.4 % (39.0-53.0); HGB 14.3 gm/dL (13.0-17.5); Lymphocytes # (A) 3.1 k/uL (1.0-4.8); Lymphocytes % (A) 22 %; MCH 30.2 pg (25.0-35.0); MCHC 31.4 g/dL (31.0-37.0); MCV 96.1 fL (80.0-100.0); Mean Platelet Volume 6.2; Monocytes # (A) 1.2 k/uL (0-1.0); Monocytes % (A) 8 %; Neutrophils # (A) 9.2 k/uL (1.3-7.7); Neutrophils % (A) 67 %; Platelet Count 411 k/uL (150-450); RBC 4.73 m/uL (4.30-5.90); RDW 13.2 % (11.5-15.5); WBC 13.7 k/uL (3.8-10.6)
[2019-07-29] MEDS: INSULIN ASPART (NovoLOG) 100 UNIT/ML VIAL SQ SCH ×2 (07:22→12:06)
[2019-07-29] MEDS: PANTOPRAZOLE 40 MG TABLET PO SCH ×2 (07:27→07:28)
[2019-07-29] MEDS: IPRATROPIUM-ALBUTEROL 3 ML NEB INHALATION SCH ×2 (08:00→12:01)
[2019-07-29] MEDS: SYMBICORT 160-4.5 MCG INHALER INHALATION SCH (08:01)
[2019-07-29 08:04] VITALS: RESP 16
[2019-07-29 08:08] VITALS: BP 108/66; TEMP 97.8
[2019-07-29] MEDS: METOPROLOL TARTRATE 50 MG TAB PO SCH (08:22)
[2019-07-29] MEDS: FUROSEMIDE 40 MG TAB PO SCH (08:27)
[2019-07-29] MEDS: DULoxetine HCL 30 MG CAPSULE.DR PO SCH (08:27)
[2019-07-29] MEDS: CHOLECALCIFEROL 1,000 UNIT TAB PO SCH (08:27)
[2019-07-29] MEDS: NICOTINE 14MG/24HR PATCH TRANSDERM SCH (08:28)
[2019-07-29] MEDS: APIXABAN 5 MG TAB PO SCH (08:28)
[2019-07-29] MEDS: SPIRONOLACTONE 25 MG TAB PO SCH (08:28)
[2019-07-29] MEDS: DOCUSATE 100 MG CAP PO SCH (08:28)
[2019-07-29] MEDS: ASCORBIC ACID 500 MG TAB PO SCH (08:28)
[2019-07-29] MEDS: Riluzole [Rilutek] 50 MG PO SCH (08:29)
[2019-07-29] MEDS ORDERED: predniSONE 10 MG TAB PO SCH (09:00)
[2019-07-29 12:01] LABS: Glucose,Whole Blood 102 mg/dL (75-99)
[2019-07-29 12:12] VITALS: PULSE 70
--- NOTE | 2019-07-29 12:52 | PN ---
PROGRESS NOTE DATE OF SERVICE: July 29, 2019 This is a 73-year-old male that we saw a couple days ago in consultation. He was admitted with acute hypoxemic respiratory failure secondary to chronic obstructive pulmonary disease exacerbation complicated by bibasilar pneumonia. Clinically, the patient is doing much better. He does have a history of ongoing and significant tobacco use, recent diagnosis of Paula Gehrig's disease, hypothyroidism, atrial flutter, hypertension, hyperlipidemia, osteoarthritis, bilateral lower extremity cellulitis and dysphagia. The patient currently is doing reasonably well. There was some talk about possible discharge later today. He denies any shortness of breath, cough, wheezing, or phlegm production. His clinical picture is dramatically improved over the last 24-36 hours. PHYSICAL EXAMINATION: VITAL SIGNS: Current vital signs are reviewed. His temperature is 97.8. Heart rate 70, respiratory rate 16, blood pressure is 108/66, mean 80, and a saturation on 2 L is 95%. Appears no acute distress. No respiratory distress. There is no audible wheezing, use of accessory muscles or conversational dyspnea. HEENT examination is grossly unremarkable. Mucous membranes moist. No oral lesions. NECK: Supple. Full range of motion. No adenopathy, thyromegaly or neck vein distention. CARDIOVASCULAR examination reveals regular rhythm and rate. Heart rate mid 60s. S1, S2 normal. No murmur. LUNGS: Reveal a few scattered mild rhonchi. Breath sounds are diminished throughout. No wheezes. Slight prolongation. Breath sounds are dramatically improved. ABDOMEN: Soft. Bowel sounds are heard. EXTREMITIES are intact. No cyanosis, clubbing or edema. SKIN: Without rash. NEUROLOGIC examination is brief but nonfocal. Blood and sputum sampling is negative. LABS: Reviewed. White count 13.7, hemoglobin 14.3, hematocrit 45.4, platelet count 411,000. Medications are reviewed. ASSESSMENT: 1. Chronic obstructive pulmonary disease exacerbation complicated by bibasilar pneumonia, improved clinically. 2. Acute hypoxemic respiratory failure secondary to chronic obstructive pulmonary disease exacerbation. 3. Chronic and ongoing tobacco dependence. 4. History of ALS. 5. Hypothyroidism. 6. History of atrial flutter. 7. Hypertension. 8. Hyperlipidemia. 9. Degenerative joint disease. 10.History of bilateral cellulitis. 11.History of dysphagia. PLAN: The patient could be discharged home today. This is dependent upon the primary. We have already made recommendations in regard to medications. Would like to see him in the office for complete pulmonary function tests. Additional recommendations and suggestions are forthcoming. MMODL / IJN: [id number] /
== END 2019-07-29 13:36 | disposition home health service (06) | DRG 871 ==
LOC: EC 19:53 → 4SSUR 22:55 → OBSVTOIN 07-27 09:15
PROVIDERS: ADMIT Internal Medicine; ATTEND Internal Medicine
DX: A41.9 Sepsis, unspecified organism (principal); J18.9 Pneumonia, unspecified organism; J96.01 Acute respiratory failure with hypoxia; E87.1 Hypo-osmolality and hyponatremia; G12.21 Amyotrophic lateral sclerosis; I48.92 Unspecified atrial flutter; I50.42 Chronic combined systolic (congestive) and diastolic (congestive) heart failure; J44.0 Chronic obstructive pulmonary disease with (acute) lower respiratory infection; J44.1 Chronic obstructive pulmonary disease with (acute) exacerbation; J98.11 Atelectasis; L03.115 Cellulitis of right lower limb; L03.116 Cellulitis of left lower limb; F17.210 Nicotine dependence, cigarettes, uncomplicated; E03.9 Hypothyroidism, unspecified; E78.5 Hyperlipidemia, unspecified; I11.0 Hypertensive heart disease with heart failure; I25.10 Atherosclerotic heart disease of native coronary artery without angina pectoris; I48.0 Paroxysmal atrial fibrillation; K59.09 Other constipation; M19.90 Unspecified osteoarthritis, unspecified site; R13.10 Dysphagia, unspecified; Z79.01 Long term (current) use of anticoagulants; Z79.890 Hormone replacement therapy; Z79.899 Other long term (current) drug therapy; Z80.8 Family history of malignant neoplasm of other organs or systems; Z82.3 Family history of stroke; Z82.49 Family history of ischemic heart disease and other diseases of the circulatory system; Z87.01 Personal history of pneumonia (recurrent); Z90.49 Acquired absence of other specified parts of digestive tract; Z90.81 Acquired absence of spleen; Z95.1 Presence of aortocoronary bypass graft; Z95.5 Presence of coronary angioplasty implant and graft; R26.9 Unspecified abnormalities of gait and mobility; Z88.8 Allergy status to other drugs, medicaments and biological substances; Z91.030 Bee allergy status; Z71.6 Tobacco abuse counseling
CPT/HCPCS: 36415; 71046; 80053; 82550; 83605; 83735; 83880; 84484; 85025; 85610; 85730; 87040; 87070; 87205; 93005; 94640; 94760; 96365; 96375; 99285

== ENCOUNTER 2019-08-16 18:43 | Inpatient (IN) | payer OTHER, MEDICARE ==
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
[2019-08-16 19:27] LABS: Basophils # (A) 0.1 k/uL (0-0.2); Basophils % (A) 1 %; Eosinophils # (A) 0.2 k/uL (0-0.7); Eosinophils % (A) 2 %; HGB 16.1 gm/dL (13.0-17.5); Lymphocytes # (A) 1.8 k/uL (1.0-4.8); Lymphocytes % (A) 25 %; MCH 30.6 pg (25.0-35.0); MCHC 32.2 g/dL (31.0-37.0); Mean Platelet Volume 5.9; Monocytes # (A) 0.5 k/uL (0-1.0); Monocytes % (A) 8 %; Neutrophils # (A) 4.3 k/uL (1.3-7.7); Neutrophils % (A) 61 %; Platelet Count 356 k/uL (150-450); RBC 5.26 m/uL (4.30-5.90); RDW 13.3 % (11.5-15.5); WBC 7.1 k/uL (3.8-10.6)
[2019-08-16 19:30] LABS: ALT 49 U/L (21-72); AST 33 U/L (17-59); African American GFR (CKD) >90 (>60 ml/min/1.73 sqM); Alkaline Phosphatase 60 U/L (38-126); Anion Gap 10 mmol/L; Blood Urea Nitrogen 14 mg/dL (9-20); Calcium 9.4 mg/dL (8.4-10.2); Carbon Dioxide 27 mmol/L (22-30); Chloride 94 mmol/L (98-107); Creatine Kinase 138 U/L (55-170); Glucose 124 mg/dL (74-99); Magnesium 2.1 mg/dL (1.6-2.3); Potassium 4.6 mmol/L (3.5-5.1); Sodium 131 mmol/L (137-145); Total Bilirubin 0.3 mg/dL (0.2-1.3); Total Protein 7.4 g/dL (6.3-8.2)
[2019-08-16 19:44] LABS: INR 0.9 (<1.2); Partial Thromboplastin Time 25.7 sec (22.0-30.0)
--- NOTE | 2019-08-16 19:54 | XR ---
EXAMINATION TYPE: XR chest 2V DATE OF EXAM: 08/16/2019 COMPARISON: 07/26/2019 HISTORY: Short of breath. Cough TECHNIQUE: Frontal and lateral views of the chest are obtained. FINDINGS: There is a poor inspiration with elevated diaphragm. There are sternal wires. There is no heart failure. There is a 2 cm somewhat rounded area of increased density over the right lung base th at is probably some atelectasis in the right lower lobe also present on last exam. Heart size is norm al. There is no heart failure. There are chest leads. IMPRESSION: Poor inspiration with some atelectasis at the right lung base probably not changed. Norm al heart.
[2019-08-16] MEDS ORDERED: NITROGLYCERIN SL TABS 0.4 MG TAB SUBLINGUAL PRN (21:37)
[2019-08-16] MEDS ORDERED: cefTRIAXone IN SWFI 1,000 MG/10 ML SYRINGE IVP STA (21:40)
[2019-08-16] MEDS ORDERED: VANCOMYCIN IV PER PHARMACY 1 EACH MISC MISCELLANE PRN (22:04)
[2019-08-16] MEDS ORDERED: HYDROcodone/APAP 5-325MG 1 EACH TAB PO PRN (22:05)
[2019-08-16] MEDS: SODIUM CHLORIDE 0.9% 1,000 ML IV SCH (22:48)
[2019-08-16] MEDS: METOPROLOL TARTRATE 50 MG TAB PO SCH (22:55)
[2019-08-16] MEDS ORDERED: VANCOMYCIN 1,500 MG in SODIUM CHLORIDE 0.9% 250 ML IVPB ONE (23:00)
[2019-08-16] MEDS ORDERED: ZINC OXIDE 20% OINT 28.4 GM TUBE TOPICAL PRN (23:00)
[2019-08-16 23:29] VITALS: BMI 24.3
--- NOTE | 2019-08-16 23:36 | HP ---
HISTORY AND PHYSICAL DATE OF SERVICE: 08/16/2019 CHIEF COMPLAINTS: Shortness of breath and cough. HISTORY OF PRESENT ILLNESS: This 73-year-old gentleman with a past medical history of multiple medical problems, including ALS, history of atrial flutter, history hypertension, hyperlipidemia, history of DJD, history of recent pneumonia, CAD, CABG, stent, being followed by Dr. Cavanaugh in the outpatient setting, was recently admitted to [facility] with bibasilar pneumonia. Patient was treated with antibiotics. Patient improved much and was discharged home. Currently the patient is complaining of increased shortness of breath, not completely relieved by DuoNeb. Patient also had a cough with yellow sputum and the patient came to [facility] and was admitted for evaluation and treatment. His white count is normal at this time. The chest x-ray, which was personally reviewed by me, showed evidence of a bibasilar infiltrate versus atelectasis. The patient was admitted for further evaluation and treatment. There is no history of any fever, rigor or chills. No history of headache, loss of consciousness, seizures at this time. PAST MEDICAL HISTORY: 1. History of atrial flutter. 2. Hypertension. 3. Hyperlipidemia. 4. History of DJD. 5. History of recent pneumonia. 6. History of CAD, CABG, stent. HOME MEDICATIONS: 1. Zinc oxide 1 application daily p.r.n. 2. PreserVision. 3. Coenzyme Q 100 mg p.o. daily. 4. Flomax 0.4 with supper. 5. Aldactone 25 mg daily p.r.n. 6. Saw palmetto. 7. Riluzole 50 mg p.o. b.i.d. 8. Omeprazole 20 mg p.o. daily. 9. Fish oil 1 p.o. daily. 10.Nitrostat 0.4 sublingually p.r.n. 11.Milk thistle 150 mg p.o. daily. 12.Lopressor 50 mg p.o. t.i.d. 13.Synthroid 88 mcg p.o. daily. 14.Combivent 1 puff q.i.d. 15.Garlic 1 tablet p.o. daily. 16.Lasix 40 mg p.o. b.i.d. 17.EpiPen 0.3 mg p.r.n. 18.Colace 100 mg p.o. b.i.d. 19.Vitamin D3 1000 daily. 20.Symbicort 160/4.5 two puffs b.i.d. 21.Vitamin C 500 mg p.o. daily. 22.Eliquis 5 mg p.o. b.i.d. ALLERGIES: BEE POLLEN and ATORVASTATIN. FAMILY HISTORY: History of throat cancer. SOCIAL HISTORY: History of smoking, continued and ongoing. No history of alcohol intake. REVIEW OF SYSTEMS: ENT: Diminished hearing. Diminished vision. CARDIOVASCULAR SYSTEM: As mentioned earlier. RESPIRATORY SYSTEM: As mentioned earlier. GI: No nausea, vomiting. : No dysuria or retention. NERVOUS SYSTEM: As mentioned earlier. ALLERGY/IMMUNOLOGY: No asthma, hayfever. MUSCULOSKELETAL: As mentioned earlier. HEMATOLOGY/ONCOLOGY: No history of anemia. ENDOCRINE: Hypothyroidism. CONSTITUTIONAL: As mentioned earlier. DERMATOLOGY: Negative. RHEUMATOLOGY: Negative. PSYCHIATRY: As mentioned earlier. PHYSICAL EXAMINATION: Patient alert and oriented x3. Pulse 81, blood pressure 138/81, respiration 17, temperature normal, pulse ox 94% on room air. HEENT: Conjunctivae normal. Oral mucosa moist. NECK: No jugular venous distention. No carotid bruit. No lymph node enlargement. CARDIOVASCULAR SYSTEM: S1, S2 muffled. No S3. No S4. RESPIRATORY SYSTEM: Breath sounds diminished at the bases. A few bilateral scattered rhonchi and crackles. Expiratory wheezing also present, more in the bases. ABDOMEN: Soft, non-tender. No mass palpable. LEGS: No edema. No swelling. NERVOUS SYSTEM: Higher functions as mentioned earlier. Moves all 4 limbs. No focal motor or sensory deficit. LYMPHATICS: No lymph node palpable in neck, axillae or groin. SKIN: No ulcer, rash, bleeding. JOINTS: No active deforming arthropathy. LABS: CBC within normal limits. Sodium 131, potassium 4.6. Glucose 124. ASSESSMENT: 1. Chronic obstructive pulmonary disease, acute exacerbation, with possible bibasilar pneumonia with failure of outpatient treatment. 2. Hyponatremia. 3. Increased random blood sugar. 4. ALS. 5. Atrial flutter. 6. Hypertension. 7. Hyperlipidemia. 8. History of degenerative joint disease. 9. History of pneumonia. 10.History of hypothyroidism. 11.Generalized weakness secondary to ALS diagnosed at [facility]. 12.Coronary artery disease, coronary artery bypass grafting, stent. 13.Continued and ongoing nicotine dependence. RECOMMENDATIONS AND DISCUSSION: In this 73-year-old gentleman who presented with multiple complex medical issues, we will monitor the patient closely, continue the current medications, continue with symptomatic treatment. Bronchodilators. Resume the home medications. Pulmonary consultation. PT/OT evaluation. Prognosis guarded because of multiple complex medical issues, as detailed above. Further recommendations to follow. A copy of this dictation is being forwarded to Dr. Cavanaugh from [facility], who is following the patient in the outpatient setting. MMODL / IJN: [id number] /
[2019-08-17] MEDS: IPRATROPIUM-ALBUTEROL 3 ML NEB INHALATION SCH ×6 (00:07→19:56)
[2019-08-17] MEDS: methylPREDNISolone SOD SUCCI 125 MG/2 ML VIAL IV SCH ×4 (00:54→16:50)
[2019-08-17] MEDS: PIPERACILLIN-TAZOBACTAM 3.375 GM in SODIUM CHLORIDE 0.9% 100 ML IVPB SCH ×3 (01:08→16:49)
[2019-08-17] MEDS: LEVOTHYROXINE 88 MCG TAB PO SCH (05:34)
[2019-08-17 06:25] LABS: Appearance,Urine Cloudy (Clear); Bacteria,Urine Few /hpf; Bilirubin,Urine Negative (Negative); Blood,Urine Trace (Negative); Color,Urine Light Yellow; Glucose,Urine (UA) Negative (Negative); Ketones,Urine Negative (Negative); Leukocyte Esterase,Urine Large (Negative); Nitrite,Urine Positive (Negative); Protein,Urine Negative (Negative); Specific Gravity,Urine 1.008 (1.001-1.035); Urobilinogen,Urine <2.0 mg/dL (<2.0); WBC,Urine 80 /hpf (0-5)
[2019-08-17] MEDS: VANCOMYCIN 1,500 MG in SODIUM CHLORIDE 0.9% 250 ML IVPB SCH ×2 (07:28→16:50)
[2019-08-17] MEDS ORDERED: SPIRONOLACTONE 25 MG TAB PO PRN (09:00)
[2019-08-17] MEDS ORDERED: NON FORMULARY DRUG (Omega-3 Fatty Acids/Fish Oil [Fish Oil 1,000 Mg Softgel] 1 CAP) PO SCH (09:00)
[2019-08-17] MEDS ORDERED: MILK THISTLE 150 MG PO SCH (09:00)
[2019-08-17] MEDS ORDERED: NON FORMULARY DRUG (Ubidecarenone [Co Q-10] 100 MG) PO SCH (09:00)
[2019-08-17] MEDS ORDERED: NON FORMULARY DRUG (Garlic [Garlic] 1 TAB) PO SCH (09:00)
[2019-08-17] MEDS ORDERED: NON FORMULARY DRUG (Riluzole [Rilutek] 50 MG) PO SCH (09:00)
[2019-08-17] MEDS: DOCUSATE 100 MG CAP PO SCH ×2 (09:27→20:29)
[2019-08-17] MEDS: APIXABAN 5 MG TAB PO SCH ×2 (09:27→20:29)
[2019-08-17] MEDS: PANTOPRAZOLE 40 MG TABLET PO SCH (09:27)
[2019-08-17] MEDS: ASCORBIC ACID 500 MG TAB PO SCH (09:27)
[2019-08-17] MEDS: CHOLECALCIFEROL 1,000 UNIT TAB PO SCH (09:27)
[2019-08-17] MEDS: VIT A,C & E-LUTEIN-MINERALS 1 EACH TAB PO SCH (09:27)
[2019-08-17] MEDS: FUROSEMIDE 40 MG TAB PO SCH ×2 (09:27→20:29)
[2019-08-17] MEDS: METOPROLOL TARTRATE 50 MG TAB PO SCH ×3 (09:27→22:46)
[2019-08-17 09:38] LABS: Basophils % (A) 0 %; Eosinophils % (A) 0 %; HCT 50.6 % (39.0-53.0); HGB 15.9 gm/dL (13.0-17.5); Hypochromasia Slight; Lymphocytes # (A) 0.8 k/uL (1.0-4.8); Lymphocytes % (A) 12 %; MCHC 31.4 g/dL (31.0-37.0); MCV 98.7 fL (80.0-100.0); Mean Platelet Volume 6.1; Monocytes # (A) 0.1 k/uL (0-1.0); Monocytes % (A) 1 %; Neutrophils # (A) 6.2 k/uL (1.3-7.7); Neutrophils % (A) 86 %; Platelet Count 458 k/uL (150-450); RBC 5.13 m/uL (4.30-5.90); RDW 13.1 % (11.5-15.5); WBC 7.2 k/uL (3.8-10.6)
[2019-08-17 09:56] LABS: African American GFR (CKD) >90 (>60 ml/min/1.73 sqM); Anion Gap 10 mmol/L; Blood Urea Nitrogen 15 mg/dL (9-20); Calcium 9.5 mg/dL (8.4-10.2); Carbon Dioxide 26 mmol/L (22-30); Chloride 100 mmol/L (98-107); Glucose 196 mg/dL (74-99); Sodium 136 mmol/L (137-145)
[2019-08-17 10:01] LABS: Potassium 5.2 mmol/L (3.5-5.1)
[2019-08-17] MEDS: SODIUM CHLORIDE 0.9% 1,000 ML IV SCH (13:43)
[2019-08-17] MEDS: TAMSULOSIN 0.4 MG CAP.ER.24H PO SCH (16:50)
--- NOTE | 2019-08-17 16:55 | PN ---
PROGRESS NOTE DATE OF SERVICE: 08/17/2019 This 73-year-old gentleman who was admitted with shortness of breath had COPD, acute exacerbation, with possible bibasilar pneumonia. The patient is being closely monitored at this time. The patient is on broad-spectrum IV antibiotics. Chest x-ray has been personally reviewed by me. Past medical history reviewed. REVIEW OF SYSTEMS: CARDIOVASCULAR SYSTEM: As mentioned earlier. RESPIRATORY SYSTEM: As mentioned earlier. GI: No nausea, vomiting. : No dysuria or retention. NERVOUS SYSTEM: No numbness, weakness. CURRENT MEDICATIONS: Reviewed. They include: 1. [place] 5 mg q.6 p.r.n. 2. DuoNeb q.i.d. and p.r.n. 3. Eliquis 5 mg p.o. b.i.d. 4. Vitamin C 500 mg p.o. daily. 5. Vitamin D3. 6. Colace 100 mg b.i.d. 7. Lasix. 8. Synthroid. 9. Solu-Medrol 60 IV q.6. 10.Vancomycin. 11.Ivite. 12.Nitroglycerin. 13.Riluzole. 14.Protonix. 15.Zosyn. 16.Aldactone. 17.Flomax. The doses are reviewed. PHYSICAL EXAMINATION: Patient is alert, oriented x3. Pulse 91, blood pressure 123/76, respirations 16, temperature 97.4, pulse ox 92% on 2 L. HEENT: Conjunctivae normal. Oral mucosa moist. NECK: No jugular venous distention. No carotid bruit. No lymph node enlargement. CARDIOVASCULAR SYSTEM: S1, S2 muffled. RESPIRATORY SYSTEM: Breath sounds diminished at the bases. Bilateral scattered rhonchi and crackles. ABDOMEN: Soft, non-tender. No mass palpable. LEGS: No edema. No swelling. NERVOUS SYSTEM: Diffusely weak. LABS: Labs at this time show WBC 7.2 and sodium 136, potassium 5.2, glucose 196. UA noted. ASSESSMENT: 1. Chronic obstructive pulmonary disease, acute exacerbation, with possible bibasilar pneumonia with failure of outpatient treatment with possibly gram-negative organism. 2. Hyponatremia. 3. Increased random blood sugar. 4. ALS history. 5. Atrial flutter. 6. Hypertension. 7. Hyperlipidemia. 8. History of degenerative joint disease. 9. History of pneumonia. 10.Possible urinary tract infection, present on admission. 11.History of hypothyroidism. 12.Generalized weakness secondary to ALS diagnosed at [facility]. 13.Coronary artery disease, coronary artery bypass grafting, stent. 14.Continued ongoing nicotine dependence. RECOMMENDATIONS AND DISCUSSION: I recommend to continue current medications, continue with the monitoring, symptomatic treatment. We will continue with the broad-spectrum IV antibiotics. Otherwise, we will closely monitor. Guarded prognosis. Further recommendations to follow. See orders for further details. We will obtain a pulmonary consultation, also. Further recommendations to follow. MMODL / IJN: [id number] /
[2019-08-17] MEDS: RILUZOLE 50 MG PO SCH (20:30)
[2019-08-17] MEDS ORDERED: SAW PALMETTO 160 MG PO SCH (21:00)
[2019-08-18] MEDS: PIPERACILLIN-TAZOBACTAM 3.375 GM in SODIUM CHLORIDE 0.9% 100 ML IVPB SCH ×4 (00:16→23:31)
[2019-08-18] MEDS: VANCOMYCIN 1,500 MG in SODIUM CHLORIDE 0.9% 250 ML IVPB SCH ×4 (00:16→23:31)
[2019-08-18] MEDS: methylPREDNISolone SOD SUCCI 125 MG/2 ML VIAL IV SCH ×5 (00:31→23:34)
[2019-08-18] MEDS: IPRATROPIUM-ALBUTEROL 3 ML NEB INHALATION SCH ×6 (01:18→20:43)
[2019-08-18] MEDS: LEVOTHYROXINE 88 MCG TAB PO SCH (05:31)
[2019-08-18] MEDS ORDERED: VANCOMYCIN TROUGH DUE 1 EACH MISC MISCELLANE ONE (07:00)
[2019-08-18 08:08] LABS: Basophils % (A) 0 %; Eosinophils % (A) 0 %; HCT 46.3 % (39.0-53.0); HGB 14.6 gm/dL (13.0-17.5); Lymphocytes % (A) 10 %; MCH 30.3 pg (25.0-35.0); MCHC 31.5 g/dL (31.0-37.0); MCV 96.1 fL (80.0-100.0); Mean Platelet Volume 6.4; Monocytes # (A) 0.5 k/uL (0-1.0); Monocytes % (A) 4 %; Neutrophils # (A) 9.1 k/uL (1.3-7.7); Neutrophils % (A) 85 %; Platelet Count 364 k/uL (150-450); RBC 4.82 m/uL (4.30-5.90); RDW 13.5 % (11.5-15.5); WBC 10.8 k/uL (3.8-10.6)
[2019-08-18] MEDS: DOCUSATE 100 MG CAP PO SCH ×2 (08:28→21:19)
[2019-08-18] MEDS: APIXABAN 5 MG TAB PO SCH ×2 (08:28→21:20)
[2019-08-18] MEDS: METOPROLOL TARTRATE 50 MG TAB PO SCH ×3 (08:28→21:20)
[2019-08-18] MEDS: ASCORBIC ACID 500 MG TAB PO SCH (08:28)
[2019-08-18] MEDS: PANTOPRAZOLE 40 MG TABLET PO SCH (08:28)
[2019-08-18] MEDS: FUROSEMIDE 40 MG TAB PO SCH ×2 (08:28→21:20)
[2019-08-18] MEDS: CHOLECALCIFEROL 1,000 UNIT TAB PO SCH (08:28)
[2019-08-18] MEDS: VIT A,C & E-LUTEIN-MINERALS 1 EACH TAB PO SCH (08:28)
[2019-08-18] MEDS: RILUZOLE 50 MG PO SCH ×2 (08:29→21:20)
[2019-08-18 08:31] LABS: African American GFR (CKD) >90 (>60 ml/min/1.73 sqM); Anion Gap 7 mmol/L; Blood Urea Nitrogen 14 mg/dL (9-20); Calcium 9.2 mg/dL (8.4-10.2); Carbon Dioxide 30 mmol/L (22-30); Chloride 101 mmol/L (98-107); Glucose 149 mg/dL (74-99); Potassium 4.2 mmol/L (3.5-5.1); Sodium 138 mmol/L (137-145)
[2019-08-18] MEDS ORDERED: IPRATROPIUM-ALBUTEROL 3 ML NEB INHALATION PRN (10:56)
[2019-08-18] MEDS: SODIUM CHLORIDE 0.9% 1,000 ML IV SCH (11:55)
--- NOTE | 2019-08-18 13:10 | CONS ---
CONSULTATION PULMONARY/CRITICAL CARE CONSULTATION: REASON FOR CONSULTATION: Shortness of breath/COPD exacerbation. DATE OF SERVICE: 08/18/2019 This is a 73-year-old gentleman with a history of COPD. He was recently admitted to the hospital for COPD exacerbation and pneumonia. He has a recent diagnosis of Paula Gehrig's disease. Anyway, he comes into the emergency room via EMS on August 16 with complaints of increasing shortness of breath. In addition, he had cough, chest congestion and yellow phlegm production. No chest pain or chest discomfort. No fever or chills. The patient was admitted with a diagnosis of COPD exacerbation. His chest x-ray shows a little patch of infiltrate and/or atelectasis at the right lung base. I did see him earlier this month when he was hospitalized. HOME MEDICATIONS: Include Lasix, Synthroid, omega-3 acid, omeprazole, EpiPen, Combivent, nitroglycerin tablets, Riluzole, Desitin ointment, vitamin C, vitamin D3, garlic, milk thistle, Konstantin palmetto, Aldactone, coenzyme Q, and eye vitamins. He also takes Eliquis, Lopressor, Colace, Flomax, and Symbicort. ALLERGIES: ATORVASTATIN and BEE POLLEN. PAST MEDICAL HISTORY: Positive for atrial flutter, hyperlipidemia, hypertension, DJD, pneumonia, and hypothyroidism. He also has a history of COPD from previous and ongoing tobacco use. In addition, he has a history of CHF, cellulitis, and ALS. ALS diagnosis was recently made at [facility]. He has a history of degenerative disk disease, tinnitus and chronic constipation. SURGICAL HISTORY: Includes appendectomy, bypass grafting, heart catheterization, stent placement, left shoulder surgery, cervical fusion, lumbar fusion, and colonoscopy. SOCIAL HISTORY: Positive for ongoing tobacco use. Denies alcohol use. He denies illicit drug use. FAMILY HISTORY: Positive for sister with throat cancer, a mother with myocardial infarction and hypothyroidism and a father with stroke. REVIEW OF SYSTEMS: CONSTITUTIONAL: Weakness. NEUROLOGIC: ALS/weakness. HEENT: Negative. CARDIOVASCULAR: Negative. PULMONARY: Shortness of breath, chest tightness, cough, wheezing, phlegm production. GI: Negative. : Negative. RHEUMATOLOGIC: Negative. IMMUNOLOGIC: Negative. ENDOCRINOLOGIC: Negative. DERMATOLOGIC: Negative. Current vital signs are reviewed. Temperature 97.5, heart rate 72, respiratory rate 14, blood pressure 156/72 mean 100 and 3 L saturations 91%. Appears in no acute distress. HEENT: Examination is grossly unremarkable. Mucous membranes are moist. Nasal O2 noted. NECK: Supple. Full range of motion. No adenopathy or thyromegaly. Neck veins are flat. CARDIOVASCULAR: Examination reveals a regular rhythm and rate. Heart rate 67 beats per minute. S1, S2 normal. Heart sounds are distant. LUNGS: Reveal diffuse inspiratory and expiratory rhonchi and wheezes. Breath sounds are diminished. There is prolongation on forced maneuver. ABDOMEN: Soft. Bowel sounds are heard. EXTREMITIES: Intact. No cyanosis, clubbing, or significant edema. SKIN: Without rash. NEUROLOGIC: Examination is nonfocal. He does have diffuse muscle weakness. LAB DATA: Reviewed. White count 10.8, hemoglobin 14.6, hematocrit 46.3, platelet count 364, 000. Sodium 138, potassium 4.2, chloride is 101, CO2 is 30, BUN 14, creatinine 0.34. Urine shows trace blood, large leukocyte esterase, 80 WBCs, WBC clumps few, bacteria few. A chest x-ray was done on 08/16. It shows some atelectasis at the right lung base. Microbiology including sputum and blood sampling is negative. Current medications are reviewed. From the pulmonary standpoint, he is getting DuoNeb, Zosyn, vancomycin, and Solu-Medrol. ASSESSMENT: 1. Chronic obstructive pulmonary disease exacerbation complicated by purulent tracheobronchitis, without significant pneumonia. 2. History of ongoing tobacco use with nicotine addiction. 3. History of hypothyroidism. 4. History of atrial flutter. 5. History of hyperlipidemia. 6. Hypertension. 7. Osteoarthritis. 8. Prior and recent history of pneumonia. 9. Recent diagnosis of Paula Gehrig disease/amyotrophic lateral sclerosis. 10.History of bilateral leg cellulitis. 11.History of dysphagia. 12.Chronic tendinitis. 13.Chronic constipation. PLAN: The patient's medications are reviewed. Will make sure he is on Pulmicort and formoterol. He is on Solu-Medrol on good antibiotics. We will make sure the [facility] q.i.d. and p.r.n. Additional recommendations and suggestions are forthcoming. Will recommend deep breathing, coughing, clearing of secretions and use of incentive spirometer. MMODL / IJN: [id number] /
[2019-08-18] MEDS ORDERED: METHYL SALICYLATE/MENTHOL CREAM 5 OZ TOPICAL PRN (13:43)
[2019-08-18] MEDS: Acetaminophen-Codeine 300-30mg TAB PO PRN (16:28)
[2019-08-18] MEDS: TAMSULOSIN 0.4 MG CAP.ER.24H PO SCH (17:25)
--- NOTE | 2019-08-18 18:08 | PN ---
PROGRESS NOTE DATE OF SERVICE: 08/18/2019 This 73-year-old gentleman who was admitted with COPD, acute exacerbation, also had bibasilar pneumonia. The patient is on broad-spectrum IV antibiotics. Patient is being closely monitored. No chest pain. No palpitations. No fever. PHYSICAL EXAMINATION: Alert and oriented x3. Pulse 56, blood pressure 149/73, respiration 16, temperature 97.6, pulse ox 96% on 3 L. HEENT: Conjunctivae normal. NECK: No jugular venous distention. CARDIOVASCULAR SYSTEM: S1, S2 muffled. RESPIRATORY SYSTEM: Breath sounds diminished at the bases. Bilateral scattered rhonchi and crackles. ABDOMEN: Soft, non-tender. No mass palpable. LEGS: No edema. No swelling. NERVOUS SYSTEM: No focal deficit. LABS: WBC 10.8, hemoglobin 14.6. Sodium 138, potassium 4.2. UA noted. The cultures are negative so far. ASSESSMENT: 1. Chronic obstructive pulmonary disease, acute exacerbation, with possible bibasilar pneumonia with failure of outpatient treatment with possible gram-negative pneumonia. 2. Hyponatremia. 3. Increased random blood sugar. 4. ALS history. 5. Atrial flutter, paroxysmal. 6. Hypertension. 7. Hyperlipidemia. 8. History of degenerative joint disease. 9. History of pneumonia. 10.Possible urinary tract infection, present on admission. 11.History of hypothyroidism. 12.Generalized weakness secondary to ALS diagnosed at [facility]. 13.Coronary artery disease, coronary artery bypass grafting, stent. 14.Continued ongoing nicotine dependence. RECOMMENDATIONS AND DISCUSSION: I recommend to continue current medications, continue with the monitoring, symptomatic treatment. Otherwise at this time I would continuing with antibiotics. Guarded prognosis. Further recommendations to follow. MMODL / IJN: [id number] /
[2019-08-18] MEDS: BUDESONIDE 1 MG/2 ML NEBU INHALATION SCH (20:41)
[2019-08-18] MEDS: FORMOTEROL FUMARATE 20 MCG/2 ML NEBU INHALATION SCH (20:41)
[2019-08-19] MEDS: LEVOTHYROXINE 88 MCG TAB PO SCH (05:38)
[2019-08-19] MEDS: methylPREDNISolone SOD SUCCI 125 MG/2 ML VIAL IV SCH ×4 (05:38→23:43)
[2019-08-19 06:55] VITALS: RESP 20
[2019-08-19 07:44] LABS: Basophils % (A) 0 %; Eosinophils % (A) 0 %; HCT 47.3 % (39.0-53.0); HGB 15.1 gm/dL (13.0-17.5); Lymphocytes # (A) 1.2 k/uL (1.0-4.8); Lymphocytes % (A) 9 %; MCH 30.5 pg (25.0-35.0); MCHC 31.9 g/dL (31.0-37.0); MCV 95.9 fL (80.0-100.0); Mean Platelet Volume 6.6; Monocytes # (A) 0.6 k/uL (0-1.0); Monocytes % (A) 5 %; Neutrophils # (A) 10.6 k/uL (1.3-7.7); Neutrophils % (A) 85 %; Platelet Count 383 k/uL (150-450); RBC 4.93 m/uL (4.30-5.90); RDW 13.6 % (11.5-15.5); WBC 12.5 k/uL (3.8-10.6)
[2019-08-19 08:01] LABS: African American GFR (CKD) >90 (>60 ml/min/1.73 sqM); Anion Gap 6 mmol/L; Blood Urea Nitrogen 16 mg/dL (9-20); Calcium 9.3 mg/dL (8.4-10.2); Carbon Dioxide 33 mmol/L (22-30); Chloride 99 mmol/L (98-107); Glucose 130 mg/dL (74-99); Potassium 4.2 mmol/L (3.5-5.1); Sodium 138 mmol/L (137-145)
[2019-08-19] MEDS: FUROSEMIDE 40 MG TAB PO SCH ×2 (08:29→20:25)
[2019-08-19] MEDS: CHOLECALCIFEROL 1,000 UNIT TAB PO SCH (08:29)
[2019-08-19] MEDS: PANTOPRAZOLE 40 MG TABLET PO SCH (08:29)
[2019-08-19] MEDS: METOPROLOL TARTRATE 50 MG TAB PO SCH ×3 (08:29→21:06)
[2019-08-19] MEDS: APIXABAN 5 MG TAB PO SCH ×2 (08:29→20:25)
[2019-08-19] MEDS: PIPERACILLIN-TAZOBACTAM 3.375 GM in SODIUM CHLORIDE 0.9% 100 ML IVPB SCH ×3 (08:29→23:43)
[2019-08-19] MEDS: DOCUSATE 100 MG CAP PO SCH ×2 (08:29→20:25)
[2019-08-19] MEDS: ASCORBIC ACID 500 MG TAB PO SCH (08:29)
[2019-08-19] MEDS: RILUZOLE 50 MG PO SCH ×2 (08:30→20:26)
[2019-08-19] MEDS: VIT A,C & E-LUTEIN-MINERALS 1 EACH TAB PO SCH (08:31)
[2019-08-19] MEDS: SODIUM CHLORIDE 0.9% 1,000 ML IV SCH (08:32)
[2019-08-19] MEDS: VANCOMYCIN 1,500 MG in SODIUM CHLORIDE 0.9% 250 ML IVPB SCH ×3 (08:34→23:43)
[2019-08-19] MEDS: BUDESONIDE 1 MG/2 ML NEBU INHALATION SCH ×2 (08:52→19:55)
[2019-08-19] MEDS: IPRATROPIUM-ALBUTEROL 3 ML NEB INHALATION SCH ×4 (08:52→19:55)
[2019-08-19] MEDS: FORMOTEROL FUMARATE 20 MCG/2 ML NEBU INHALATION SCH ×2 (08:52→19:55)
--- NOTE | 2019-08-19 12:30 | P.PN ---
Subjective Progress Note Date: 08/19/19 Principal diagnosis: Acute exacerbation of chronic obstructive pulmonary disease, complicated by print tracheobronchitis. No evidence of pneumonia. The patient is seen today 08/19/2019 in follow-up on the regular medical floor. He is currently resting comfortably in bed. Awake and alert in no acute distress. Breathing easier today as compared to yesterday. Maintaining O2 saturations in the 90s on 3 L/m per nasal cannula. He is afebrile. Hemodynamically stable. Blood culture reveals no growth to date. Sputum culture pending. White count 12.5. Hemoglobin 15.1. Creatinine 0.41. He remains on vancomycin and Zosyn. Objective - Vital Signs Vital signs: Vital Signs Temp 97.5 F L 08/19/19 05:00 Pulse 62 08/19/19 12:05 Resp 20 08/19/19 05:00 BP 143/75 08/19/19 05:00 Pulse Ox 97 08/19/19 05:00 Intake & Output 08/18/19 08/19/19 08/19/19 18:59 06:59 18:59 Intake Total 520 950 Output Total 4100 1600 Balance -3580 -650 Intake: Oral 520 950 Output: Urine 4100 1600 Other: Voiding Method Indwelling Catheter Indwelling Catheter Indwelling Catheter - Exam GENERAL EXAM: Alert, pleasant 73-year-old gentleman, on 3 L nasal cannula, comfortable in no apparent distress. HEAD: Normocephalic. EYES: Normal reaction of pupils, equal size. NOSE: Clear with pink turbinates. THROAT: No erythema or exudates. NECK: No masses, no JVD. CHEST: No chest wall deformity. LUNGS: Equal air entry with scattered rhonchi. CVS: S1 and S2 normal with no audible murmur, regular rhythm. ABDOMEN: No hepatosplenomegaly, normal bowel sounds, no guarding or rigidity. SPINE: No scoliosis or deformity SKIN: No rashes CENTRAL NERVOUS SYSTEM: No focal deficits, tone is normal in all 4 extremities. EXTREMITIES: There is no peripheral edema. No clubbing, no cyanosis. Peripheral pulses are intact. - Labs CBC & Chem 7: 08/19/19 07:06 08/19/19 07:05 Labs: Abnormal Lab Results - Last 24 Hours (Table) 08/19/19 08/19/19 Range/Units 07:05 07:06 WBC 12.5 H (3.8-10.6) k/uL Neutrophils # 10.6 H (1.3-7.7) k/uL Carbon Dioxide 33 H (22-30) mmol/L Creatinine 0.41 L (0.66-1.25) mg/dL Glucose 130 H (74-99) mg/dL Microbiology - Last 24 Hours (Table) 08/16/19 19:00 Blood Culture - Preliminary Blood No Growth after 48 hours 08/18/19 05:02 Gram Stain - Preliminary Sputum Assessment and Plan Assessment: Impression: #1 Acute hypoxic respiratory failure secondary to an acute exacerbation of chronic obstructive pulmonary disease, complicated by purulent tracheobronchitis. #2 Chronic and ongoing tobacco dependence. #3 History of ALS. #4 Hypothyroidism. #5 History of atrial flutter, anticoagulated with Eliquis. #6 Hypertension. #7 Hyperlipidemia. #8 Osteoarthritis. #9 History of bilateral cellulitis. #10 History of dysphagia. Plan: The patient was seen and evaluated by Dr. Ortega. He is improved today compared to yesterday. He is cleared for discharge from the pulmonary standpoint. Complete a prednisone taper. I, the cosigning physician, performed a history & physical examination of the patient. Lungs sounds with few scattered rhonchi. Maintaining good O2 saturations in the 90s on 3 L/m per nasal cannula. I discussed the assessment and plan of care with my nurse practitioner, Akosua Phan. I attest to the above note as dictated by her.
[2019-08-19] MEDS: TAMSULOSIN 0.4 MG CAP.ER.24H PO SCH (17:31)
[2019-08-19] MEDS: Acetaminophen-Codeine 300-30mg TAB PO PRN (19:35)
--- NOTE | 2019-08-19 21:42 | PN ---
PROGRESS NOTE DATE OF SERVICE: 08/19/2019 This 73-year-old gentleman who was admitted with COPD exacerbation as well as possible bibasilar pneumonia, on broad-spectrum IV antibiotics. No chest pain. No palpitations. No fever. EXAM: Alert and oriented x2. Pulse is 59. Blood pressure 153/81, respiration 20, temperature 97.9, pulse ox 93 percent on 2 L. HEENT is conjunctivae normal. Neck: No JVD. CARDIOVASCULAR: S1, S2 muffled. Respiration: Breath sounds diminished in the bases. Bilateral scattered rhonchi and crackles. Abdomen is soft, nontender. LEGS are no edema. No swelling. CENTRAL NERVOUS SYSTEM: No focal deficits. LAB STUDIES: WBC 12.5, sodium 130, potassium 4.2. UA noted. Vancomycin noted and cultures are pending. ASSESSMENT: 1. Chronic obstructive pulmonary disease acute exacerbation with possible bibasilar pneumonia with failure of outpatient treatment with possible gram-negative pneumonia. 2. Hyponatremia. 3. Increased random blood sugar. 4. ALS history. 5. Atrial flutter paroxysmal. 6. Hypertension. 7. Hyperlipidemia. 8. History of degenerative joint disease. 9. History of pneumonia. 10.Possible urinary tract infection present on admission. 11.History of hypothyroidism. 12.Generalized weakness secondary to ALS diagnosed at [facility]. 13.CAD, CABG stent. 14.Continued ongoing nicotine dependence. RECOMMENDATIONS AND DISCUSSION: Recommend to continue current medications, management and symptomatic treatment. Otherwise, at this time, we will monitor the patient closely. Continue with bronchodilators. Continue with empiric antibiotics. Guarded prognosis. Further recommendations to follow. MMODL / IJN: [id number] /
[2019-08-20] MEDS: LEVOTHYROXINE 88 MCG TAB PO SCH (05:19)
[2019-08-20] MEDS: methylPREDNISolone SOD SUCCI 125 MG/2 ML VIAL IV SCH (05:19)
[2019-08-20 05:24] VITALS: BP 160/78
[2019-08-20 06:23] VITALS: TEMP 97.8
[2019-08-20] MEDS: FORMOTEROL FUMARATE 20 MCG/2 ML NEBU INHALATION SCH (07:26)
[2019-08-20] MEDS: BUDESONIDE 1 MG/2 ML NEBU INHALATION SCH (07:26)
[2019-08-20] MEDS: IPRATROPIUM-ALBUTEROL 3 ML NEB INHALATION SCH ×2 (07:26→11:05)
[2019-08-20] MEDS: VANCOMYCIN 1,500 MG in SODIUM CHLORIDE 0.9% 250 ML IVPB SCH (07:56)
[2019-08-20] MEDS: PIPERACILLIN-TAZOBACTAM 3.375 GM in SODIUM CHLORIDE 0.9% 100 ML IVPB SCH (07:56)
[2019-08-20] MEDS: PANTOPRAZOLE 40 MG TABLET PO SCH (08:01)
[2019-08-20] MEDS: Acetaminophen-Codeine 300-30mg TAB PO PRN (08:01)
[2019-08-20] MEDS: METOPROLOL TARTRATE 50 MG TAB PO SCH (08:01)
[2019-08-20] MEDS: ASCORBIC ACID 500 MG TAB PO SCH (08:01)
[2019-08-20] MEDS: FUROSEMIDE 40 MG TAB PO SCH (08:02)
[2019-08-20] MEDS: VIT A,C & E-LUTEIN-MINERALS 1 EACH TAB PO SCH (08:02)
[2019-08-20] MEDS: SODIUM CHLORIDE 0.9% 1,000 ML IV SCH (08:02)
[2019-08-20] MEDS: DOCUSATE 100 MG CAP PO SCH (08:02)
[2019-08-20] MEDS: APIXABAN 5 MG TAB PO SCH (08:02)
[2019-08-20] MEDS: RILUZOLE 50 MG PO SCH (08:03)
[2019-08-20 08:08] LABS: African American GFR (CKD) >90 (>60 ml/min/1.73 sqM)
[2019-08-20] MEDS: CHOLECALCIFEROL 1,000 UNIT TAB PO SCH (08:11)
[2019-08-20] MEDS ORDERED: predniSONE 20 MG TAB PO SCH (09:00)
[2019-08-20] MEDS ORDERED: AMOXIC-POT CLAV 875-125MG 1 EACH TAB PO SCH (09:00)
--- NOTE | 2019-08-20 10:06 | P.PN ---
Subjective Progress Note Date: 08/20/19 Principal diagnosis: Acute exacerbation of chronic obstructive pulmonary disease, with tracheobronchitis On 08/20/2019 patient seen in follow-up on the regular medical surgical floor. She is awake and alert, in no acute distress, he states his breathing easier, no acute events overnight, no fever or chills, remains on 3 L of oxygen, his pulse ox is 94-98%, patient is hemodynamically stable, occasional cough with production of small amount of sputum, lung sounds are positive for some scattered rhonchi, no wheezing, patient has been treated with Zosyn and vancomycin, nebulized bronchodilators and IV steroids, blood and sputum cultures are negative thus far. Today's labs have been reviewed, creatinine is stable, 0.43, no other labs were ordered. No new chest x-rays, patient is stable, from pulmonary perspective patient can be considered for discharge home today. Objective - Vital Signs Vital signs: Vital Signs Temp 97.8 F 08/20/19 05:00 Pulse 64 08/20/19 07:54 Resp 20 08/20/19 05:00 BP 160/78 08/20/19 05:23 Pulse Ox 94 L 08/20/19 05:00 Intake & Output 08/19/19 08/20/19 08/20/19 19:59 06:59 18:59 Intake Total Output Total 1000 Balance -1000 Intake: Oral Output: Urine 1000 Other: Voiding Method - Exam GENERAL EXAM: Alert, pleasant, 73-year-old white male, 3 L of oxygen and the pu lse ox of 94% comfortable in no apparent distress. HEAD: Normocephalic/atraumatic. EYES: Normal reaction of pupils, equal size. Conjunctiva pink, sclera white. NOSE: Clear with pink turbinates. THROAT: No erythema or exudates. NECK: No masses, no JVD, no thyroid enlargement, no adenopathy. CHEST: No chest wall deformity. Symmetrical expansion. LUNGS: Equal air entry with a few scattered rhonchi CVS: Regular rate and rhythm, normal S1 and S2, no gallops, no murmurs, no rubs ABDOMEN: Soft, nontender. No hepatosplenomegaly, normal bowel sounds, no guarding or rigidity. EXTREMITIES: No clubbing, no edema, no cyanosis, 2+ pulses and upper and lower extremities. MUSCULOSKELETAL: Muscle strength and tone normal. SPINE: No scoliosis or deformity SKIN: No rashes CENTRAL NERVOUS SYSTEM: Alert and oriented -3. No focal deficits, tone is normal in all 4 extremities. PSYCHIATRIC: Alert and oriented -3. Appropriate affect. Intact judgment and insight. - Labs CBC & Chem 7: 08/19/19 07:06 08/20/19 07:37 Labs: Abnormal Lab Results - Last 24 Hours (Table) 08/20/19 Range/Units 07:37 Creatinine 0.43 L (0.66-1.25) mg/dL Microbiology - Last 24 Hours (Table) 08/16/19 19:00 Blood Culture - Preliminary Blood No Growth after 72 hours 08/18/19 05:02 Gram Stain - Preliminary Sputum Sputum Culture - Preliminary Assessment and Plan Plan: Assessment: #1 Acute hypoxic respiratory failure secondary to an acute exacerbation of chronic obstructive pulmonary disease, complicated by purulent tracheobronchitis. #2 Chronic and ongoing tobacco dependence. #3 History of ALS. #4 Hypothyroidism. #5 History of atrial flutter, anticoagulated with Eliquis. #6 Hypertension. #7 Hyperlipidemia. #8 Osteoarthritis. #9 History of bilateral cellulitis. #10 History of dysphagia. Plan: We'll switch Pulmicort and Perforomist to Symbicort, DC IV steroids, and start oral prednisone taper, we'll stop the vancomycin and Zosyn, and patient can be switched to oral Augmentin, from pulmonary perspective patient is stable, angular considered for discharge home today, he'll need follow-up in the office in one to 2 weeks I performed a history & physical examination of the patient and discussed their management with my nurse practitioner, Kristi Barney. I reviewed the nurse practitioner's note and agree with the documented findings and plan of care. Lung sounds are positive for a few scattered rhonchi. The findings and the im pression was discussed with the patient. I attest to the documentation by the nurse practitioner. Time with Patient: Less than 30
[2019-08-20 11:17] VITALS: PULSE 52
[2019-08-20] MEDS ORDERED: SYMBICORT 160-4.5 MCG INHALER INHALATION SCH (20:00)
--- NOTE | 2019-08-21 10:09 | DS ---
DISCHARGE SUMMARY DATE OF SERVICE: 08/21/2019. FINAL DIAGNOSES: 1. Chronic obstructive pulmonary disease exacerbation with possible bibasilar pneumonia with failure of outpatient treatment with possible gram-negative pneumonia improved. 2. Hyponatremia. 3. Increased random blood sugar. 4. ALS history. 5. Atrial flutter paroxysmal. 6. Hypertension. 7. Hyperlipidemia. 8. History of degenerative joint disease. 9. History of pneumonia. 10.Urinary tract infection present on admission. 11.History of hypothyroidism. 12.Generalized weakness secondary to ALS diagnosed in [facility] recently. 13.Coronary artery disease, coronary artery bypass grafting stent. 14.Continued ongoing nicotine dependence. DISCHARGE DISPOSITION: The patient is being discharged in stable condition with guarded prognosis. HISTORY OF PRESENT ILLNESS: This 73-year-old gentleman with a past medical history of multiple medical problems as mentioned earlier being followed by Dr. Cavanaugh in the outpatient setting with [facility], was admitted with significant shortness of breath and possible pneumonia. Patient treated with IV antibiotics, bronchodilators, steroids. Patient improved significantly. Cultures negative. Dr. Ortega saw the patient and cleared the patient for discharge. The patient will be discharged in stable condition with guarded prognosis with the following advice and medications. On exam, vitals are stable. Cardiovascular is normal. Abdomen soft, nontender. Nervous system: Mild diffuse weakness. Respiratory: A few scattered crackles. DISCHARGE MEDICATIONS: 1. Aldactone 25 mg daily p.r.n. 2. Coenzyme Q 100 mg daily. 3. Combivent Respimat inhaler 1 puff q.i.d. 4. Zinc oxide 1 application b.i.d. p.r.n. 5. EpiPen p.r.n. 6. [place]-3 fatty acid daily. 7. Garlic 1 tablet p.o. daily. 8. Lasix 40 mg p.o. b.i.d. 10.Nitrostat 0.4 p.o. daily p.r.n. 11.Omeprazole 20 mg p.o. daily. 12.Multivitamins 1 p.o. b.i.d. 13.Riluzole 50 mg p.o. b.i.d. 14.Saw palmetto 160 mg q.h.s. 15.Synthroid 18 mcg p.o. daily. 16.Vitamin C 500 mg p.o. daily. 17.Vitamin D3 1000 daily. 18.Augmentin 875 mg p.o. b.i.d. for 4 days. 19.Colace 100 mg p.o. b.i.d. 20.Eliquis 5 mg p.o. b.i.d. 21.Flomax 0.4. 22.Lopressor 50 mg p.o. daily. 23.Symbicort 160/4.5 two puffs b.i.d. Once again the patient discharged in stable condition. MMODL / IJN: [id number] / MTDD
== END 2019-08-20 15:20 | disposition home health service (06) | DRG 177 ==
LOC: EC 18:43 → 4MS4W 21:39
PROVIDERS: ADMIT Hospitalist; ATTEND Hospitalist
DX: J15.6 Pneumonia due to other Gram-negative bacteria (principal); J96.01 Acute respiratory failure with hypoxia; E87.1 Hypo-osmolality and hyponatremia; G12.21 Amyotrophic lateral sclerosis; I48.92 Unspecified atrial flutter; J44.0 Chronic obstructive pulmonary disease with (acute) lower respiratory infection; J44.1 Chronic obstructive pulmonary disease with (acute) exacerbation; N39.0 Urinary tract infection, site not specified; E03.9 Hypothyroidism, unspecified; E78.5 Hyperlipidemia, unspecified; I50.9 Heart failure, unspecified; I11.0 Hypertensive heart disease with heart failure; F17.200 Nicotine dependence, unspecified, uncomplicated; K59.09 Other constipation; M19.90 Unspecified osteoarthritis, unspecified site; M77.9 Enthesopathy, unspecified; I25.10 Atherosclerotic heart disease of native coronary artery without angina pectoris; Z79.01 Long term (current) use of anticoagulants; Z79.51 Long term (current) use of inhaled steroids; Z79.890 Hormone replacement therapy; Z79.899 Other long term (current) drug therapy; Z80.8 Family history of malignant neoplasm of other organs or systems; Z82.0 Family history of epilepsy and other diseases of the nervous system; Z82.3 Family history of stroke; Z82.49 Family history of ischemic heart disease and other diseases of the circulatory system; Z87.01 Personal history of pneumonia (recurrent); Z90.81 Acquired absence of spleen; Z95.1 Presence of aortocoronary bypass graft; Z95.5 Presence of coronary angioplasty implant and graft
CPT/HCPCS: 36415; 71046; 80048; 80053; 80202; 81001; 82550; 82565; 83735; 83880; 84484; 85025; 85610; 85730; 87040; 87070; 87205; 93005; 94640; 94760; 96374; 99285

== ENCOUNTER 2019-09-05 01:18 | Inpatient (IN) | payer OTHER, MEDICARE ==
[2019-09-05] MEDS ORDERED: methylPREDNISolone SOD SUCCI 125 MG/2 ML VIAL IV STA (01:36)
[2019-09-05] MEDS ORDERED: SODIUM CHLORIDE 0.9% 500 ML 500 ML IV STA (01:36)
[2019-09-05] MEDS ORDERED: AZITHROMYCIN 500 MG in SODIUM CHLORIDE 0.9% 250 ML IVPB STA (01:36)
[2019-09-05] MEDS ORDERED: ALBUTEROL NEBULIZED 2.5 MG/3 ML INHALATION STA ×2 (01:36→02:58)
[2019-09-05] MEDS ORDERED: CEFEPIME 2 GM in SODIUM CHLORIDE 0.9% 100 ML IVPB STA (01:45)
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
--- NOTE | 2019-09-05 02:25 | XR ---
EXAMINATION TYPE: XR chest 2V DATE OF EXAM: 09/05/2019 COMPARISON: 08/16/2019 HISTORY: Difficulty breathing TECHNIQUE: Frontal and lateral views of the chest are obtained. FINDINGS: There is some patchy atelectasis at the lung bases. There is no heart failure. There is po or inspiration. There are chest leads. IMPRESSION: Poor inspiration with basilar pulmonary atelectasis slightly worse than last exam. No he art failure seen.
[2019-09-05 02:29] LABS: ALT 38 U/L (21-72); AST 41 U/L (17-59); African American GFR (CKD) >90 (>60 ml/min/1.73 sqM); Albumin 3.3 g/dL (3.5-5.0); Alkaline Phosphatase 59 U/L (38-126); Anion Gap 8 mmol/L; Blood Urea Nitrogen 12 mg/dL (9-20); Calcium 8.9 mg/dL (8.4-10.2); Carbon Dioxide 32 mmol/L (22-30); Chloride 89 mmol/L (98-107); Glucose 110 mg/dL (74-99); Magnesium 1.9 mg/dL (1.6-2.3); Non-African American GFR(CKD) >90 (>60 ml/min/1.73 sqM); Sodium 129 mmol/L (137-145); Total Bilirubin 0.8 mg/dL (0.2-1.3); Total Protein 6.6 g/dL (6.3-8.2)
[2019-09-05 02:37] LABS: Basophils # (A) 0.4 k/uL (0-0.2); Basophils % (A) 2 %; Eosinophils % (A) 0 %; HCT 43.1 % (39.0-53.0); HGB 14.3 gm/dL (13.0-17.5); Lymphocytes # (A) 1.1 k/uL (1.0-4.8); Lymphocytes % (A) 7 %; MCH 31.1 pg (25.0-35.0); MCHC 33.3 g/dL (31.0-37.0); MCV 93.6 fL (80.0-100.0); Mean Platelet Volume 6.2; Monocytes # (A) 1.5 k/uL (0-1.0); Monocytes % (A) 9 %; Neutrophils # (A) 13.1 k/uL (1.3-7.7); Neutrophils % (A) 80 %; Platelet Count 399 k/uL (150-450); RDW 13.2 % (11.5-15.5); WBC 16.4 k/uL (3.8-10.6)
[2019-09-05 02:41] LABS: Partial Thromboplastin Time 27.8 sec (22.0-30.0); Prothrombin Time 11.1 sec (9.0-12.0)
[2019-09-05 02:52] LABS: Potassium 4.6 mmol/L (3.5-5.1)
[2019-09-05] MEDS ORDERED: ALBUTEROL NEBULIZED 2.5 MG/3 ML INHALATION PRN (02:58)
[2019-09-05] MEDS ORDERED: VANCOMYCIN IV PER PHARMACY 1 EACH MISC MISCELLANE PRN (02:58)
[2019-09-05] MEDS ORDERED: IPRATROPIUM-ALBUTEROL 3 ML NEB INHALATION PRN (02:59)
[2019-09-05] MEDS: VANCOMYCIN 1,250 MG in SODIUM CHLORIDE 0.9% 250 ML IVPB SCH ×3 (04:34→20:06)
[2019-09-05] MEDS: SODIUM CHLORIDE 0.9% 1,000 ML IV SCH ×2 (04:38→16:46)
[2019-09-05] MEDS: methylPREDNISolone SOD SUCCI 125 MG/2 ML VIAL IV SCH ×3 (06:09→18:35)
[2019-09-05 06:14] LABS: Glucose,Whole Blood 149 mg/dL (75-99)
[2019-09-05] MEDS: IPRATROPIUM-ALBUTEROL 3 ML NEB INHALATION SCH ×4 (07:46→20:20)
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
[2019-09-05] MEDS: CEFEPIME 2 GM in SODIUM CHLORIDE 0.9% 100 ML IVPB SCH ×2 (10:35→18:23)
--- NOTE | 2019-09-05 12:29 | CONS ---
CONSULTATION PULMONARY/CRITICAL CARE CONSULTATION: DATE OF CONSULTATION: 09/05/2019 This is a 73-year-old male, well known to our service. He has been in the hospital at least 3 times here in the last month and a half or 2 months. He has a history of a recent diagnosis of ALS. He also suffers from significant other medical problems including COPD and atrial fibrillation. Each time he has been in the hospital, he has come in with a COPD exacerbation complicated by purulent tracheobronchitis or bronchopneumonia. He presented to the emergency room sometime this morning with increasing shortness of breath, cough, chest congestion, fever, nasal congestion. He was admitted to the hospital with a diagnosis of COPD exacerbation and possible pneumonia. The patient is resting reasonably comfortably. He is getting weaker and weaker from his ALS. His voice is weaker. His swallowing mechanism is a weaker and certainly his respiratory muscles are weaker as well. This is why he is having these frequent admissions. In addition, he has significant COPD from tobacco use. In fact, he continues to smoke. . HOME MEDICATIONS: Include Lasix, Synthroid, 3 Kent fatty acids, omeprazole, EpiPen, Combivent, nitroglycerin tablets, Rilutek, zinc oxide, vitamin C, vitamin D3, garlic, milk thistle, saw palmetto, Aldactone, coenzyme Q, eye vitamins, Eliquis, metoprolol Colace, Flomax, Symbicort, and Augmentin. ALLERGIES: Include BEE POLLEN and LIPITOR. MEDICAL HISTORY: Medical history is extensive and includes COPD from ongoing tobacco use and nicotine addiction, atrial flutter, hyperlipidemia, hypertension, DJD, multiple episodes of acute bronchitis and pneumonia, hypothyroidism, lower extremity cellulitis, CHF, hyperkalemia, dysphagia, degenerative disc disease, tendinitis, and chronic constipation. SURGICAL HISTORY: Includes appendectomy, bypass grafting, heart catheterization with stent, splenectomy, left shoulder surgery, cervical fusion, lumbar fusion, and colonoscopy. SOCIAL HISTORY: Positive for recent smoking cessation. Up until recently, he was smoking. He has been a heavy smoker. Alcohol and illicit drug use are denied. FAMILY HISTORY: Positive for sister with throat cancer. A mother with myocardial infarction and hypothyroidism, and a father with CVA and TIA. REVIEW OF SYSTEMS: CONSTITUTIONAL: Weakness. NEUROLOGIC: Negative. HEENT: Difficulty swallowing, hoarseness. CARDIOVASCULAR: Negative. PULMONARY: Shortness of breath, chest tightness, wheezing, cough and phlegm production/ GI: Negative. : Negative. RHEUMATOLOGIC: Negative. IMMUNOLOGIC: Negative. ENDOCRINOLOGIC: Negative. DERMATOLOGIC: Negative. Current vital signs are reviewed. His temperature is 99, heart rate 88, respiratory rate is 20, blood pressure 115/57 mean 76, and saturations are 93% on 6 L. Appears in no acute distress. HEENT: Examination is grossly unremarkable. Mucous membranes are dry. NECK: Supple. Full range of motion. No adenopathy. Neck veins are flat. CARDIOVASCULAR: Examination reveals regular rhythm and rate. S1, S2 normal. No S3, S4, or murmur. Heart rate 80 beats per minute. LUNGS: Reveal diffuse coarse rhonchi. Some expiratory wheezes. Some basilar crackles noted. Breath sounds equal bilaterally. He is restricted in his breathing. ABDOMEN: Soft, bowel sounds are heard. EXTREMITIES: Intact. Some mild edema. SKIN: Reveals some chronic venostasis changes. There is some erythema and hyperemia of the lower extremities. NEUROLOGIC: Examination reveals diffuse muscle weakness. CHEST X-RAY: From 09/05 shows poor inspiratory effort with bibasilar pulmonary atelectasis and/or infiltrate. LABS: Reviewed. White count 16.4, hemoglobin adequate, platelet count normal. PT, INR, PTT normal. Sodium 129, potassium 4.6, chloride 89, CO2 is 32, BUN and creatinine were 12 and 0.33. Influenza studies were negative. Microbiology is currently negative. Medications are reviewed. He is currently on albuterol updrafts, Zithromax, cefepime, famotidine, subcutaneous heparin, Duo neb, Solu-Medrol and vancomycin. ASSESSMENT: 1. Chronic obstructive pulmonary disease exacerbation complicated by purulent tracheobronchitis, without significant bronchopneumonia. 2. History of progressive neuromuscular decline and weakness secondary to ALS. 3. Ongoing tobacco use with nicotine addiction. 4. Hypothyroidism. 5. History of atrial fibrillation/flutter. 6. History of hyperlipidemia. 7. History of hypertension. 8. Degenerative joint disease. 9. Prior and recent history of pneumonia. 10.Recent diagnosis of Paula Gehrig disease/amyotrophic lateral sclerosis. 11.History of bilateral leg cellulitis. 12.Dysphagia, secondary to ALS. 13.Chronic constipation. PLAN: Medications are reviewed. I did try to have a conversation with his , Ivett Horton. I tried to let her know that his overall prognosis is poor and his overall health and neuromuscular strength is declining. It is harder for him to speak and swallow. His respiratory there is obvious respiratory decline. Typically, we do not recommend these patient go on mechanical ventilation. I tried to have this conversation with the patient and the patient's . Additional recommendations and suggestions are forthcoming. Prognosis is poor. MMODL / IJN: [id number] /
[2019-09-05] MEDS ORDERED: NON FORMULARY DRUG (Epinephrine (Auto Inject) 0.3 MG) IM PRN (15:11)
[2019-09-05] MEDS: METOPROLOL TARTRATE 50 MG TAB PO SCH ×2 (16:45→22:31)
[2019-09-05] MEDS: FUROSEMIDE 40 MG TAB PO SCH (16:45)
[2019-09-05 17:07] LABS: Glucose,Whole Blood 279 mg/dL (75-99)
[2019-09-05] MEDS: INSULIN ASPART (NovoLOG) 100 UNIT/ML VIAL SQ SCH ×2 (18:08→20:30)
[2019-09-05 20:20] LABS: Glucose,Whole Blood 243 mg/dL (75-99)
[2019-09-05] MEDS ORDERED: HEPARIN SODIUM,PORCINE 5,000 UNIT/ML 1 ML VIAL SQ SCH (21:00)
[2019-09-05] MEDS ORDERED: RILUTEK 50 MG PO SCH (21:00)
[2019-09-05] MEDS ORDERED: FAMOTIDINE 20 MG/2 ML VIAL IV SCH (21:00)
[2019-09-05] MEDS: APIXABAN 5 MG TAB PO SCH (22:31)
[2019-09-05] MEDS: FAMOTIDINE 20 MG TAB PO SCH (22:31)
[2019-09-05] MEDS: RILUTEK 50 MG PO SCH (22:32)
[2019-09-06] MEDS ORDERED: AZITHROMYCIN 500 MG in SODIUM CHLORIDE 0.9% 250 ML IVPB SCH (02:00)
[2019-09-06] MEDS: CEFEPIME 2 GM in SODIUM CHLORIDE 0.9% 100 ML IVPB SCH ×2 (02:06→08:54)
[2019-09-06] MEDS: VANCOMYCIN 1,250 MG in SODIUM CHLORIDE 0.9% 250 ML IVPB SCH (04:15)
[2019-09-06 06:15] LABS: Glucose,Whole Blood 147 mg/dL (75-99)
[2019-09-06] MEDS: INSULIN ASPART (NovoLOG) 100 UNIT/ML VIAL SQ SCH ×4 (06:18→21:40)
[2019-09-06] MEDS: LEVOTHYROXINE 88 MCG TAB PO SCH (06:18)
[2019-09-06] MEDS: SODIUM CHLORIDE 0.9% 1,000 ML IV SCH ×2 (06:20→20:24)
[2019-09-06 06:38] LABS: Basophils # (A) 0.3 k/uL (0-0.2); Basophils % (A) 2 %; Eosinophils % (A) 0 %; HCT 41.5 % (39.0-53.0); HGB 13.2 gm/dL (13.0-17.5); Lymphocytes # (A) 0.8 k/uL (1.0-4.8); Lymphocytes % (A) 4 %; MCHC 31.8 g/dL (31.0-37.0); MCV 94.3 fL (80.0-100.0); Mean Platelet Volume 7.2; Monocytes # (A) 1.2 k/uL (0-1.0); Monocytes % (A) 7 %; Neutrophils # (A) 15.1 k/uL (1.3-7.7); Neutrophils % (A) 86 %; Platelet Count 433 k/uL (150-450); RDW 13.4 % (11.5-15.5); WBC 17.6 k/uL (3.8-10.6)
[2019-09-06 06:52] LABS: African American GFR (CKD) >90 (>60 ml/min/1.73 sqM); Anion Gap 6 mmol/L; Blood Urea Nitrogen 18 mg/dL (9-20); Calcium 8.9 mg/dL (8.4-10.2); Carbon Dioxide 28 mmol/L (22-30); Chloride 102 mmol/L (98-107); Glucose 126 mg/dL (74-99); Non-African American GFR(CKD) >90 (>60 ml/min/1.73 sqM); Potassium 4.3 mmol/L (3.5-5.1); Sodium 136 mmol/L (137-145)
[2019-09-06] MEDS: IPRATROPIUM-ALBUTEROL 3 ML NEB INHALATION SCH ×4 (08:23→18:49)
[2019-09-06] MEDS: SPIRONOLACTONE 25 MG TAB PO SCH (08:53)
[2019-09-06] MEDS: APIXABAN 5 MG TAB PO SCH ×2 (08:53→21:40)
[2019-09-06] MEDS: METOPROLOL TARTRATE 50 MG TAB PO SCH ×3 (08:53→21:40)
[2019-09-06] MEDS: predniSONE 20 MG TAB PO SCH (08:54)
[2019-09-06] MEDS: RILUTEK 50 MG PO SCH ×2 (08:54→21:40)
[2019-09-06] MEDS: FAMOTIDINE 20 MG TAB PO SCH ×2 (08:54→21:40)
[2019-09-06] MEDS: FUROSEMIDE 40 MG TAB PO SCH ×2 (08:54→17:28)
--- NOTE | 2019-09-06 09:52 | P.PN ---
Subjective This is a 73 years old male with past medical history of atrial fibrillation, hypertension, hyperlipidemia, osteoarthritis, hypothyroidism, possible CHF, ALS and swallowing difficulty and constipation. Patient was recently discharged from hospital for pneumonia 08/16-08/21 also for acute COPD exacerbation and tracheobronchitis , This is a 6th admission to the hospital/ER visit over 5 months . And reasons for admission includes COPD, leg cellulitis. Patient at baseline and is bedridden for 1 year due to difficulty moving his leg related to his ALS, patient denies swallowing difficulty although it's charted in his history and looks like the patient has slurred speech. Patient states after been discharged from the hospital his start having shortness of breath with a dry cough, he denies chest pain, he denies choking with food. On admission he had fever of 102.4, tachypnea with 28 and tachycardia 0.01. Patient was leukocytosis of 16.4 K, last time his WBC were 12.5 K upon discharge. Hyponatremic with sodium 129. Potassium and creatinine are not elevated. Liver enzymes are within normal limits. Sugar controlled. Influenza test back negative. EKG showing normal sinus rhythm at [address]-T changes, QTC is 433. Chest x-ray: Bilateral Basal atelectasis per radiologist notes In the emergency room patient started on antibiotics with Rocephin, cefepime and vancomycin and Zithromax. also he was started on Solu-Medrol 60 mg. Also he was given normal saline at 75 mm/h. Dr. Capps was consulted from the emergency room 09/06/2019 Patient is awake today is still dyspneic tachypneic although he shows some improvement. He still have coughing with white phlegm. No chest pain. He is hemodynamically stable with no more fever since yesterday. His WBC is still elevated at 17.6 K, hemoglobin 13.2. Sodium went up from 129 up to 136. His sugar is controlled 147-243. Influenza has been negative. Blood cultures are no growth so far. Pulmonary team are following the patient closely. Swallow evaluation is pending. Continue patient on prednisone, Zithromax, cefepime and IV vancomycin. We'll hour IV fluids to 50 mL/h He is advised that if she wanted to speak to one of the patient's doctors martell Fajardo vomiting of more Review of systems CONSTITUTIONAL: No fever, no malaise, no fatigue. HEENT: No recent visual problems or hearing problems. Denied any sore throat. CARDIOVASCULAR: No orthopnea, PND, no palpitations, no syncope. PULMONARY: no hemoptysis. GASTROINTESTINAL: No diarrhea, no nausea, no vomiting, no abdominal pain. Normoactive bowel sounds. NEUROLOGICAL: No headaches, no weakness, no numbness. HEMATOLOGICAL: Denies any bleeding or petechiae. GENITOURINARY: Denies any burning micturition, frequency, or urgency. MUSCULOSKELETAL/RHEUMATOLOGICAL: Denies any joint pain, swelling, or any muscle pain. ENDOCRINE: Denies any polyuria or polydipsia. Objective - Vital Signs Vital signs: Vital Signs Temp 98.5 F 09/06/19 04:00 Pulse 88 09/06/19 08:35 Resp 18 09/06/19 04:00 BP 150/89 09/06/19 04:00 Pulse Ox 95 09/06/19 04:00 Intake & Output 09/05/19 09/06/19 09/06/19 18:59 06:59 18:59 Intake Total 955 460 Output Total 1400 2700 Balance -445 -2240 Weight 75 kg Intake: Intake, IV Titration 340 Amount Cefepime 2 gm In Sodium 100 Chloride 0.9% 100 ml @ 200 mls/hr IVPB ONCE STA Rx#:[id number] Vancomycin 1,250 mg In 240 Sodium Chloride 0.9% 250 ml @ 125 mls/hr IVPB Q8H [facility] Rx#:[id number] Oral 955 120 Output: Urine 1400 2700 Other: Voiding Method Indwelling Catheter Indwelling Catheter # Bowel Movements 1 - Exam GENERAL: The patient is alert and oriented x3, not in any acute distress. Well developed, well nourished. HEENT: Pupils are round and equally reacting to light. EOMI. No scleral icterus. No conjunctival pallor. Normocephalic, atraumatic. No pharyngeal erythema. No thyromegaly. CARDIOVASCULAR: S1 and S2 present. No murmurs, rubs, or gallops. -PULMONARY: Chest is clear to auscultation, no wheezing or crackles. Scattered crepitation in the lower bases ABDOMEN: Soft, nontender, nondistended, normoactive bowel sounds. No palpable organomegaly. MUSCULOSKELETAL: No joint swelling or deformity. EXTREMITIES: No cyanosis, clubbing, or pedal edema. -NEUROLOGICAL: Patient is fully awake and oriented 3, he has slurred speech, denies weakness in both lower extremity. No weakness in upper extremity. Meningeal signs are absent SKIN: No rashes. No petechiae. - Labs CBC & Chem 7: 09/06/19 05:40 09/06/19 05:40 Labs: Abnormal Lab Results - Last 24 Hours (Table) 09/05/19 09/05/19 09/06/19 Range/Units 16:56 20:18 05:40 WBC (3.8-10.6) k/uL Neutrophils # (1.3-7.7) k/uL Lymphocytes # (1.0-4.8) k/uL Monocytes # (0-1.0) k/uL Basophils # (0-0.2) k/uL Sodium 136 L (137-145) mmol/L Creatinine 0.36 L (0.66-1.25) mg/dL Glucose 126 H (74-99) mg/dL POC Glucose (mg/dL) 279 H 243 H (75-99) mg/dL 09/06/19 09/06/19 Range/Units 05:40 06:13 WBC 17.6 H (3.8-10.6) k/uL Neutrophils # 15.1 H (1.3-7.7) k/uL Lymphocytes # 0.8 L (1.0-4.8) k/uL Monocytes # 1.2 H (0-1.0) k/uL Basophils # 0.3 H (0-0.2) k/uL Sodium (137-145) mmol/L Creatinine (0.66-1.25) mg/dL Glucose (74-99) mg/dL POC Glucose (mg/dL) 147 H (75-99) mg/dL Microbiology - Last 24 Hours (Table) 09/05/19 01:50 Blood Culture - Preliminary Blood No Growth after 24 hours Assessment and Plan Assessment: Systemic inflammatory response with fever, tachycardia and tachypnea Sepsis secondary to above, possible due to recurrent pneumonia. 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 Continue with antibiotics. Follow-up sputum and blood culture. Pulmonary team was already been consulted. we'll do a swallow evaluation Labs and medication were reviewed.. Continue same treatment. Continue with symptomatic treatment. Resume home medication. Monitor lytes and vitals. DVT and GI prophylaxis. Further recommendations of the clinical course of the patient DVT prophylaxis: Subcutaneous heparin GI Prophylaxis: Pepcid Prognosis is guarded
[2019-09-06] MEDS ORDERED: VANCOMYCIN TROUGH DUE 1 EACH MISC MISCELLANE ONE (10:30)
--- NOTE | 2019-09-06 11:34 | FL ---
EXAMINATION TYPE: FL barium swallow w video DATE OF EXAM: 09/06/2019 MODIFIED SWALLOW / DEGLUTITION STUDY CLINICAL HISTORY: Dysphagia. Newly diagnosed ALS. TECHNIQUE: Deglutition study is performed utilizing thin liquid barium, honey and nectar thick liqui d barium, barium thick applesauce, and barium coated cracker. Total 2 minutes 5 seconds fluoroscopic time utilized during procedure. Serial spot images saved to PACS. COMPARISON: None. FINDINGS: The oral and pharyngeal phases show satisfactory initiation and propagation with all modali ties tested. Satisfactory mastication is seen with solid modalities tested. There is single episode of transient penetration with large bolus of thin liquid barium. There is no evidence of penetration or aspiration with any other modality tested. No significant pharyngeal residue was appreciated. Ant erior fusion plate C4-C6 level with moderate to severe disc space narrowing C6-C7 level. IMPRESSION: No aspiration observed. Please refer to speech therapist notes for further details if ne cessary.
--- NOTE | 2019-09-06 12:07 | P.PN ---
Subjective Progress Note Date: 09/06/19 Principal diagnosis: Chronic obstructive pulmonary disease complicated by purulent tracheobronchitis On 09/06/2019 patient seen in follow-up on selective care unit, he is awake and alert, in no acute distress. No significant cough or phlegm production, he remains on 4 L of oxygen his pulse ox of 95-96%, no fever or chills, respirations are nonlabored, breath sounds are diminished at the bases. Patient was seen by speech therapy and apparently passed his bedside swallow evaluation however patient may be a silent aspirator, and modified barium swallow is completed showing no aspiration. Hemodynamically stable, no altered mentation, today's labs have been reviewed, showing limits AT 17.6, hemoglobin was 13.2, sodium was 136, the rest of electrolytes were within normal limits, BUN is 18 creatinine 0.36. Blood culture has shown no growth, we were unable to send a sputum culture. Antibiotic coverage in the form of cefepime, azithromycin, vancomycin. There has not been recurrence of fever in the last 24 hours. Objective - Vital Signs Vital signs: Vital Signs Temp 98.5 F 09/06/19 04:00 Pulse 68 09/06/19 11:36 Resp 18 09/06/19 04:00 BP 150/89 09/06/19 04:00 Pulse Ox 95 09/06/19 04:00 Intake & Output 09/05/19 09/06/19 09/06/19 18:59 06:59 18:59 Intake Total 955 460 500 Output Total 1400 2700 1400 Balance -104 -1549 -900 Weight 75 kg Intake: Intake, IV Titration 340 Amount Cefepime 2 gm In Sodium 100 Chloride 0.9% 100 ml @ 200 mls/hr IVPB ONCE STA Rx#:[id number] Vancomycin 1,250 mg In 240 Sodium Chloride 0.9% 250 ml @ 125 mls/hr IVPB Q8H [facility] Rx#:[id number] Oral 955 120 500 Output: Urine 1400 2700 1400 Other: Voiding Method Indwelling Catheter Indwelling Catheter # Bowel Movements 1 - Exam GENERAL EXAM: Alert, very pleasant, pale 73-year-old white male, on 4 L of oxygen with a pulse ox of 95-96% comfortable in no apparent distress. HEAD: Normocephalic/atraumatic. EYES: Normal reaction of pupils, equal size. Conjunctiva pink, sclera white. NOSE: Clear with pink turbinates. THROAT: No erythema or exudates. NECK: No masses, no JVD, no thyroid enlargement, no adenopathy. CHEST: No chest wall deformity. Symmetrical expansion. LUNGS: Equal air entry with diminished breath sounds at the bases, no rhonchi, no wheezes CVS: Regular rate and rhythm, normal S1 and S2, no gallops, no murmurs, no rubs ABDOMEN: Soft, nontender. No hepatosplenomegaly, normal bowel sounds, no guarding or rigidity. EXTREMITIES: No clubbing, mild pedal edema, no cyanosis, 2+ pulses and upper and lower extremities. Foot drop is noted in bilateral lower extremities MUSCULOSKELETAL: Muscle strength and tone normal. SPINE: No scoliosis or deformity SKIN: No rashes CENTRAL NERVOUS SYSTEM: Alert and oriented -3. No focal deficits, tone is normal in all 4 extremities. PSYCHIATRIC: Alert and oriented -3. Appropriate affect. Intact judgment and insight. - Labs CBC & Chem 7: 09/06/19 05:40 09/06/19 05:40 Labs: Abnormal Lab Results - Last 24 Hours (Table) 09/05/19 09/05/19 09/06/19 Range/Units 16:56 20:18 05:40 WBC (3.8-10.6) k/uL Neutrophils # (1.3-7.7) k/uL Lymphocytes # (1.0-4.8) k/uL Monocytes # (0-1.0) k/uL Basophils # (0-0.2) k/uL Sodium 136 L (137-145) mmol/L Creatinine 0.36 L (0.66-1.25) mg/dL Glucose 126 H (74-99) mg/dL POC Glucose (mg/dL) 279 H 243 H (75-99) mg/dL 09/06/19 09/06/19 Range/Units 05:40 06:13 WBC 17.6 H (3.8-10.6) k/uL Neutrophils # 15.1 H (1.3-7.7) k/uL Lymphocytes # 0.8 L (1.0-4.8) k/uL Monocytes # 1.2 H (0-1.0) k/uL Basophils # 0.3 H (0-0.2) k/uL Sodium (137-145) mmol/L Creatinine (0.66-1.25) mg/dL Glucose (74-99) mg/dL POC Glucose (mg/dL) 147 H (75-99) mg/dL Microbiology - Last 24 Hours (Table) 09/05/19 01:50 Blood Culture - Preliminary Blood No Growth after 24 hours Assessment and Plan Plan: Assessment: #1. Acute exacerbation of chronic obstructive pulmonary disease complicated by purulent tracheobronchitis without significant bronchopneumonia #2. 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 Ongoing tobacco use with nicotine addiction #4. Hypothyroidism #5. History of atrial fibrillation #6. History of hyperlipidemia #7. History of hypertension #8. Degenerative joint disease #9. Prior recent history of pneumonia #10. Recent diagnosis of Paula Gehrig's disease/amyotrophic lateral sclerosis #11. History of bilateral leg cellulitis #12. Dysphagia #13. Chronic constipation Plan: Fever pattern has improved, no febrile episodes in the last 24 hours, no worsening dyspnea, breathing seems to be stable, weaning FiO2, maintaining aspiration precautions, MBS did not show any sign of aspiration, continue breathing treatments, we will streamline the antibiotics, and his continued IV antibiotics and start patient on oral Augmentin. From pulmonary perspective patient could be considered for discharge home today, he has upcoming appointment at the [facility] with a neurologist specializing in ALS, and patient would like to go home today or tomorrow. I performed a history & physical examination of the patient and discussed their management with my nurse practitioner, Kristi Barney. I reviewed the nurse practitioner's note and agree with the documented findings and plan of care. Lung sounds are positive for diminished breath sounds. The findings and the impression was discussed with the patient. I attest to the documentation by the nurse practitioner. Time with Patient: Less than 30
[2019-09-06 12:12] LABS: Glucose,Whole Blood 206 mg/dL (75-99)
[2019-09-06 17:31] LABS: Glucose,Whole Blood 159 mg/dL (75-99)
[2019-09-06 20:29] LABS: Glucose,Whole Blood 174 mg/dL (75-99)
[2019-09-06] MEDS: AMOXIC-POT CLAV 875-125MG 1 EACH TAB PO SCH (21:40)
[2019-09-07 06:18] LABS: Glucose,Whole Blood 95 mg/dL (75-99)
[2019-09-07] MEDS: INSULIN ASPART (NovoLOG) 100 UNIT/ML VIAL SQ SCH ×4 (06:21→21:45)
[2019-09-07] MEDS: LEVOTHYROXINE 88 MCG TAB PO SCH (06:22)
[2019-09-07 06:37] LABS: Basophils # (A) 0.2 k/uL (0-0.2); Basophils % (A) 1 %; Eosinophils # (A) 0.1 k/uL (0-0.7); Eosinophils % (A) 0 %; HCT 43.1 % (39.0-53.0); HGB 13.8 gm/dL (13.0-17.5); Lymphocytes # (A) 1.7 k/uL (1.0-4.8); Lymphocytes % (A) 12 %; MCH 30.5 pg (25.0-35.0); MCHC 31.9 g/dL (31.0-37.0); MCV 95.5 fL (80.0-100.0); Mean Platelet Volume 6.4; Monocytes # (A) 0.9 k/uL (0-1.0); Monocytes % (A) 6 %; Neutrophils # (A) 11.1 k/uL (1.3-7.7); Neutrophils % (A) 79 %; Platelet Count 476 k/uL (150-450); RBC 4.51 m/uL (4.30-5.90); RDW 13.3 % (11.5-15.5)
[2019-09-07 06:53] LABS: African American GFR (CKD) >90 (>60 ml/min/1.73 sqM); Anion Gap 7 mmol/L; Blood Urea Nitrogen 15 mg/dL (9-20); Calcium 9.4 mg/dL (8.4-10.2); Carbon Dioxide 34 mmol/L (22-30); Chloride 98 mmol/L (98-107); Glucose 98 mg/dL (74-99); Non-African American GFR(CKD) >90 (>60 ml/min/1.73 sqM); Potassium 4.4 mmol/L (3.5-5.1); Sodium 139 mmol/L (137-145)
[2019-09-07] MEDS: IPRATROPIUM-ALBUTEROL 3 ML NEB INHALATION SCH ×4 (07:55→19:54)
[2019-09-07] MEDS: RILUTEK 50 MG PO SCH ×2 (08:02→21:45)
[2019-09-07] MEDS: APIXABAN 5 MG TAB PO SCH ×2 (08:03→21:45)
[2019-09-07] MEDS: METOPROLOL TARTRATE 50 MG TAB PO SCH ×3 (08:03→21:45)
[2019-09-07] MEDS: AMOXIC-POT CLAV 875-125MG 1 EACH TAB PO SCH ×2 (08:03→21:44)
[2019-09-07] MEDS: FAMOTIDINE 20 MG TAB PO SCH ×2 (08:04→21:45)
[2019-09-07] MEDS: SPIRONOLACTONE 25 MG TAB PO SCH (08:04)
[2019-09-07] MEDS: FUROSEMIDE 40 MG TAB PO SCH ×2 (08:04→16:23)
[2019-09-07] MEDS: predniSONE 20 MG TAB PO SCH (08:11)
--- NOTE | 2019-09-07 10:11 | P.PN ---
Subjective This is a 73 years old male with past medical history of atrial fibrillation, hypertension, hyperlipidemia, osteoarthritis, hypothyroidism, possible CHF, ALS and swallowing difficulty and constipation. Patient was recently discharged from hospital for pneumonia 08/16-08/21 also for acute COPD exacerbation and tracheobronchitis , This is a 6th admission to the hospital/ER visit over 5 months . And reasons for admission includes COPD, leg cellulitis. Patient at baseline and is bedridden for 1 year due to difficulty moving his leg related to his ALS, patient denies swallowing difficulty although it's charted in his history and looks like the patient has slurred speech. Patient states after been discharged from the hospital his start having shortness of breath with a dry cough, he denies chest pain, he denies choking with food. On admission he had fever of 102.4, tachypnea with 28 and tachycardia 0.01. Patient was leukocytosis of 16.4 K, last time his WBC were 12.5 K upon discharge. Hyponatremic with sodium 129. Potassium and creatinine are not elevated. Liver enzymes are within normal limits. Sugar controlled. Influenza test back negative. EKG showing normal sinus rhythm at [address]-T changes, QTC is 433. Chest x-ray: Bilateral Basal atelectasis per radiologist notes In the emergency room patient started on antibiotics with Rocephin, cefepime and vancomycin and Zithromax. also he was started on Solu-Medrol 60 mg. Also he was given normal saline at 75 mm/h. Dr. Capps was consulted from the emergency room 09/06/2019 Patient is awake today is still dyspneic tachypneic although he shows some improvement. He still have coughing with white phlegm. No chest pain. He is hemodynamically stable with no more fever since yesterday. His WBC is still elevated at 17.6 K, hemoglobin 13.2. Sodium went up from 129 up to 136. His sugar is controlled 147-243. Influenza has been negative. Blood cultures are no growth so far. Pulmonary team are following the patient closely. Swallow evaluation is pending. Continue patient on prednisone, Zithromax, cefepime and IV vancomycin. We'll hour IV fluids to 50 mL/h 09/07/2019 Patient is awake not in respiratory distress, does today we were able to lower his oxygen from 4 down to 2 and later on to 0 oxygen via the nasal cannula however he denied he got chest tightness and they have to place him back again. This morning he is saturating 95% in 2 L. His blood pressure on the high side 183/90 probably related to his steroids, we will lower his steroid dose from 40- 30 mg of prednisone, we'll add a small dose of Norvasc. Sodium is back to normal at 139, recurrence of the normal saline we'll keep a sodium of 5 in fluids. Continue on Eliquis and Augmentin. I think we can monitor the patient 1 more day especially he has 9 symptoms, patient he has appointment with his physician for ALS management on this coming Tuesday 09/11 Objective - Vital Signs Vital signs: Vital Signs Temp 97.5 F L 09/07/19 07:37 Pulse 69 09/07/19 08:24 Resp 18 09/07/19 08:28 BP 183/90 09/07/19 07:37 Pulse Ox 95 09/07/19 04:00 Intake & Output 09/06/19 09/07/19 09/07/19 18:59 06:59 18:59 Intake Total 736 2020 Output Total 2800 4550 1200 Balance -2064 -2530 -1200 Weight 80 kg Intake: Oral 736 2020 Output: Urine 2800 4550 1200 Other: Voiding Method Indwelling Catheter Indwelling Catheter Indwelling Catheter - Exam GENERAL: The patient is alert and oriented x3, not in any acute distress. Well developed, well nourished. HEENT: Pupils are round and equally reacting to light. EOMI. No scleral icterus. No conjunctival pallor. Normocephalic, atraumatic. No pharyngeal erythema. No thyromegaly. CARDIOVASCULAR: S1 and S2 present. No murmurs, rubs, or gallops. -PULMONARY: Chest is clear to auscultation, no wheezing or crackles. Scattered crepitation in the lower bases ABDOMEN: Soft, nontender, nondistended, normoactive bowel sounds. No palpable organomegaly. MUSCULOSKELETAL: No joint swelling or deformity. EXTREMITIES: No cyanosis, clubbing, or pedal edema. -NEUROLOGICAL: Patient is fully awake and oriented 3, he has slurred speech, denies weakness in both lower extremity. No weakness in upper extremity. Meningeal signs are absent SKIN: No rashes. No petechiae. - Labs CBC & Chem 7: 11/21/19 05:58 09/07/19 05:58 Labs: Abnormal Lab Results - Last 24 Hours (Table) 09/06/19 09/06/19 09/06/19 Range/Units 12:09 17:12 20:27 WBC (3.8-10.6) k/uL Plt Count (150-450) k/uL Neutrophils # (1.3-7.7) k/uL Carbon Dioxide (22-30) mmol/L Creatinine (0.66-1.25) mg/dL POC Glucose (mg/dL) 206 H 159 H 174 H (75-99) mg/dL 09/07/19 09/07/19 Range/Units 05:58 05:58 WBC 14.0 H (3.8-10.6) k/uL Plt Count 476 H (150-450) k/uL Neutrophils # 11.1 H (1.3-7.7) k/uL Carbon Dioxide 34 H (22-30) mmol/L Creatinine 0.40 L (0.66-1.25) mg/dL POC Glucose (mg/dL) (75-99) mg/dL Microbiology - Last 24 Hours (Table) 09/05/19 01:50 Blood Culture - Preliminary Blood No Growth after 48 hours Assessment and Plan Assessment: Systemic inflammatory response with fever, tachycardia and tachypnea, improved Sepsis secondary to above, possible due to recurrent pneumonia. 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 Continue with antibiotics. Continue with Augmentin. Stop IV fluids, keep monitoring sodium. Deep oxygen on until tomorrow we will try to take it off. Labs and medication were reviewed.. Continue same treatment. Continue with symptomatic treatment. Resume home medication. Monitor lytes and vitals. DVT and GI prophylaxis. Further recommendations of the clinical course of the patient DVT prophylaxis: Subcutaneous heparin GI Prophylaxis: Pepcid Prognosis is guarded Possible discharge in 24-48 hours
[2019-09-07] MEDS: amLODIPine 2.5 MG TAB PO SCH (11:33)
--- NOTE | 2019-09-07 12:02 | P.PN ---
Subjective Progress Note Date: 09/07/19 Principal diagnosis: Chronic obstructive pulmonary disease complicated by purulent tracheobronchitis On 09/06/2019 patient seen in follow-up on selective care unit, he is awake and alert, in no acute distress. No significant cough or phlegm production, he remains on 4 L of oxygen his pulse ox of 95-96%, no fever or chills, respirations are nonlabored, breath sounds are diminished at the bases. Patient was seen by speech therapy and apparently passed his bedside swallow evaluation however patient may be a silent aspirator, and modified barium swallow is completed showing no aspiration. Hemodynamically stable, no altered mentation, today's labs have been reviewed, showing limits AT 17.6, hemoglobin was 13.2, sodium was 136, the rest of electrolytes were within normal limits, BUN is 18 creatinine 0.36. Blood culture has shown no growth, we were unable to send a sputum culture. Antibiotic coverage in the form of cefepime, azithromycin, vancomycin. There has not been recurrence of fever in the last 24 hours. On 09/07/2019 patient seen in follow-up on selective care unit, awake and alert, no acute distress, his breathing is improving, no fever or chills. Is on 2 L of oxygen, pulse ox 95%, lung sounds are clear, diminished at the bases. Blood cell count is improving, down to 14 on today's labs, from 17.6 on yesterday's labs, electrolytes are within normal limits with exception of CO2 which is at 34 on today's labs, renal profile is unremarkable. Cultures showed no growth, patient has not been able to produce a sputum culture for us. Yesterday we sw itched him to oral Augmentin, he remains on oral Lasix, and breathing treatments, clinically improving. Objective - Vital Signs Vital signs: Vital Signs Temp 97.5 F L 09/07/19 11:29 Pulse 80 09/07/19 11:29 Resp 20 09/07/19 11:29 BP 134/76 09/07/19 11:29 Pulse Ox 95 09/07/19 04:00 Intake & Output 09/06/19 09/07/19 09/07/19 18:59 06:59 18:59 Intake Total 736 2019 240 Output Total 2801 2686 3030 Balance -0 -8657 -1739 Weight 80 kg Intake: Oral 736 2019 240 Output: Urine 2800 4550 2700 Other: Voiding Method Indwelling Catheter Indwelling Catheter Indwelling Catheter - Exam GENERAL EXAM: Alert, very pleasant, pale 73-year-old white male, on 2 L of oxygen with a pulse ox of 95-96% comfortable in no apparent distress. HEAD: Normocephalic/atraumatic. EYES: Normal reaction of pupils, equal size. Conjunctiva pink, sclera white. NOSE: Clear with pink turbinates. THROAT: No erythema or exudates. NECK: No masses, no JVD, no thyroid enlargement, no adenopathy. CHEST: No chest wall deformity. Symmetrical expansion. LUNGS: Equal air entry with diminished breath sounds at the bases, no rhonchi, no wheezes CVS: Regular rate and rhythm, normal S1 and S2, no gallops, no murmurs, no rubs ABDOMEN: Soft, nontender. No hepatosplenomegaly, normal bowel sounds, no guarding or rigidity. EXTREMITIES: No clubbing, mild pedal edema, no cyanosis, 2+ pulses and upper and lower extremities. Foot drop is noted in bilateral lower extremities MUSCULOSKELETAL: Muscle strength and tone normal. SPINE: No scoliosis or deformity SKIN: No rashes CENTRAL NERVOUS SYSTEM: Alert and oriented -3. No focal deficits, tone is normal in all 4 extremities. PSYCHIATRIC: Alert and oriented -3. Appropriate affect. Intact judgment and insight. - Labs CBC & Chem 7: 09/07/19 05:58 09/07/19 05:58 Labs: Abnormal Lab Results - Last 24 Hours (Table) 09/06/19 09/06/19 09/06/19 Range/Units 12:09 17:12 20:27 WBC (3.8-10.6) k/uL Plt Count (150-450) k/uL Neutrophils # (1.3-7.7) k/uL Carbon Dioxide (22-30) mmol/L Creatinine (0.66-1.25) mg/dL POC Glucose (mg/dL) 206 H 159 H 174 H (75-99) mg/dL 09/07/19 09/07/19 Range/Units 05:58 05:58 WBC 14.0 H (3.8-10.6) k/uL Plt Count 476 H (150-450) k/uL Neutrophils # 11.1 H (1.3-7.7) k/uL Carbon Dioxide 34 H (22-30) mmol/L Creatinine 0.40 L (0.66-1.25) mg/dL POC Glucose (mg/dL) (75-99) mg/dL Microbiology - Last 24 Hours (Table) 09/05/19 01:50 Blood Culture - Preliminary Blood No Growth after 48 hours Assessment and Plan Plan: Assessment: #1. Acute exacerbation of chronic obstructive pulmonary disease complicated by purulent tracheobronchitis without significant bronchopneumonia #2. 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 Ongoing tobacco use with nicotine addiction #4. Hypothyroidism #5. History of atrial fibrillation #6. History of hyperlipidemia #7. History of hypertension #8. Degenerative joint disease #9. Prior recent history of pneumonia #10. Recent diagnosis of Paula Gehrig's disease/amyotrophic lateral sclerosis #11. History of bilateral leg cellulitis #12. Dysphagia #13. Chronic constipation Plan: Breathing remains stable, no shortness of breath, FiO2 down to 2 L, he modynamically stable, no febrile episodes in the last 48 hours. We streamlined patient's antibiotics down to oral Augmentin, blood cultures remain negative, and from pulmonary perspective patient is stable for discharge home today he has a appointment with his neurologist at [facility] Dr. Ernie Durant who is a specialist for ALS. He will need an outpatient follow-up appointment with Dr. Ortega in one week. I performed a history & physical examination of the patient and discussed their management with my nurse practitioner, Kristi Barney. I reviewed the nurse practitioner's note and agree with the documented findings and plan of care. Lung sounds are positive for diminished breath sounds. The findings and the impression was discussed with the patient. I attest to the documentation by the nurse practitioner. Time with Patient: Less than 30
[2019-09-07 12:14] LABS: Glucose,Whole Blood 116 mg/dL (75-99)
[2019-09-07 16:49] LABS: Glucose,Whole Blood 160 mg/dL (75-99)
[2019-09-07 19:57] LABS: Glucose,Whole Blood 196 mg/dL (75-99)
[2019-09-08 06:02] LABS: Basophils # (A) 0.2 k/uL (0-0.2); Basophils % (A) 2 %; Eosinophils # (A) 0.1 k/uL (0-0.7); Eosinophils % (A) 1 %; HGB 14.2 gm/dL (13.0-17.5); Lymphocytes % (A) 21 %; MCH 29.9 pg (25.0-35.0); MCHC 31.5 g/dL (31.0-37.0); MCV 94.8 fL (80.0-100.0); Mean Platelet Volume 6.6; Monocytes # (A) 0.8 k/uL (0-1.0); Monocytes % (A) 8 %; Neutrophils # (A) 6.1 k/uL (1.3-7.7); Neutrophils % (A) 66 %; Platelet Count 526 k/uL (150-450); RBC 4.74 m/uL (4.30-5.90); RDW 13.4 % (11.5-15.5); WBC 9.2 k/uL (3.8-10.6)
[2019-09-08 06:05] LABS: Glucose,Whole Blood 109 mg/dL (75-99)
[2019-09-08] MEDS: INSULIN ASPART (NovoLOG) 100 UNIT/ML VIAL SQ SCH ×3 (06:09→17:15)
[2019-09-08] MEDS: LEVOTHYROXINE 88 MCG TAB PO SCH (06:18)
[2019-09-08] MEDS: IPRATROPIUM-ALBUTEROL 3 ML NEB INHALATION SCH ×3 (07:06→15:55)
[2019-09-08] MEDS: FAMOTIDINE 20 MG TAB PO SCH (08:55)
[2019-09-08] MEDS: RILUTEK 50 MG PO SCH (08:55)
[2019-09-08] MEDS: FUROSEMIDE 40 MG TAB PO SCH ×2 (08:55→15:37)
[2019-09-08] MEDS: SPIRONOLACTONE 25 MG TAB PO SCH (08:55)
[2019-09-08] MEDS: AMOXIC-POT CLAV 875-125MG 1 EACH TAB PO SCH (08:55)
[2019-09-08] MEDS: APIXABAN 5 MG TAB PO SCH (08:55)
[2019-09-08] MEDS: amLODIPine 2.5 MG TAB PO SCH (08:55)
[2019-09-08] MEDS: METOPROLOL TARTRATE 50 MG TAB PO SCH ×2 (08:55→15:37)
[2019-09-08] MEDS ORDERED: predniSONE 10 MG TAB PO SCH (09:00)
--- NOTE | 2019-09-08 11:15 | P.DS ---
Providers Date of admission: 09/05/19 02:59 Attending physician: Kash Tsai Consults: 09/05/19 02:59 Consult Physician Routine Consulting Provider: Gaston Ortega Consult Reason/Comments: HCAP, COPD Do you want consulting provider notified?: Yes Primary care physician: [facility] Hospital Course: Diagnoses: Systemic inflammatory response with fever, tachycardia and tachypnea, improved Sepsis secondary to above, possible due to recurrent pneumonia. 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 Patient was recently discharged from hospital for pneumonia 08/16-08/21 also for acute COPD exacerbation and tracheobronchitis , This is a 6th admission to the hospital/ER visit over 5 months . And reasons for admission includes COPD, leg cellulitis. Patient at baseline and is bedridden for 1 year due to difficulty moving his leg related to his ALS, patient denies swallowing difficulty although it's charted in his history and looks like the patient has slurred speech. Patient states after been discharged from the hospital his start having shortness of breath with a dry cough, he denies chest pain, he denies choking with food. On admission he had fever of 102.4, tachypnea with 28 and tachycardia 0.01. Patient was leukocytosis of 16.4 K, last time his WBC were 12.5 K upon discharge. Hyponatremic with sodium 129. Patient has been treated with normal saline as well as with antibiotics Zithromax, cefepime and IV vancomycin. Patient showed interval improvement in his breathing is improved and sodium went up to normal level at patient has been evaluated by rural mail carrier who cleared him for discharge today. She'll be discharged a short course of Augmentin. Patient will go to see his ALS doctor in this coming Wednesday. Patient is back to his baseline and his early for discharge Problems and management plan were discussed with the patient and he verbalized understanding and acceptance Patient was found stable and can be discharged home however he needs follow-up as an outpatient. Patient was instructed to follow up with PCP within one week and patient agrees. Also patient was instructed to follow up with pulmonary in one week and he agrees Gen: patient is a AAOx3, no distress CVS: S1-S2, RRR, no murmur Lungs: B/L CTA, no wheezing Abdomen: soft, no distention, no tenderness, positive bowel sounds Extremity: no leg edema or induration Time spent more than 35 minutes Health Concerns: [facility] Patient Condition at Discharge: Stable Plan - Discharge Summary Discharge Rx Participant: No New Discharge Prescriptions: No Action Levothyroxine Sodium [Synthroid] 88 mcg PO DAILY Furosemide [Lasix] 40 mg PO BID Mesa-3 Fatty Acids/Fish Oil [Fish Oil 1,000 mg Softgel] 1 cap PO DAILY Omeprazole 20 mg PO DAILY Apixaban [Eliquis] 5 mg PO BID #60 tab Metoprolol Tartrate [Lopressor] 50 mg PO TID #90 tab Zinc Oxide [Desitin] 1 applic TOPICAL BID PRN PRN Reason: SORE ON BUTTOCKS Riluzole [Rilutek] 50 mg PO BID Ipratropium/Albuterol Sulfate [Combivent Respimat Inhaler] 1 puff INHALATION RT-QID EPINEPHrine (Auto Inject) [Epipen] 0.3 mg IM ONCE PRN PRN Reason: Anaphylaxis Spironolactone [Aldactone] 25 mg PO DAILY Ipratropium Nebulized [Atrovent Nebulized 0.2 MG/ML] 0.5 mg INHALATION RT-Q4H PRN PRN Reason: Shortness Of Breath Albuterol Nebulized [Ventolin Nebulized] 2.5 mg INHALATION RT-Q4H PRN PRN Reason: Shortness Of Breath Discharge Medication List Furosemide [Lasix] 40 mg PO BID 05/13/17 [History] Levothyroxine Sodium [Synthroid] 88 mcg PO DAILY 05/13/17 [History] Mesa-3 Fatty Acids/Fish Oil [Fish Oil 1,000 mg Softgel] 1 cap PO DAILY 05/13/17 [History] Omeprazole 20 mg PO DAILY 04/17/19 [History] Apixaban [Eliquis] 5 mg PO BID #60 tab 04/24/19 [Rx] Metoprolol Tartrate [Lopressor] 50 mg PO TID #90 tab 04/24/19 [Rx] EPINEPHrine (Auto Inject) [Epipen] 0.3 mg IM ONCE PRN 06/14/19 [History] Ipratropium/Albuterol Sulfate [Combivent Respimat Inhaler] 1 puff INHALATION RT- QID 06/14/19 [History] Riluzole [Rilutek] 50 mg PO BID 06/14/19 [History] Zinc Oxide [Desitin] 1 applic TOPICAL BID PRN 06/14/19 [History] Spironolactone [Aldactone] 25 mg PO DAILY 07/25/19 [History] Albuterol Nebulized [Ventolin Nebulized] 2.5 mg INHALATION RT-Q4H PRN 09/05/19 [History] Ipratropium Nebulized [Atrovent Nebulized 0.2 MG/ML] 0.5 mg INHALATION RT-Q4H PRN 09/05/19 [History] Follow up [facility]ment[facility] - Gaston Ortega DO [Doctor of Osteopathic Medicine] - 10/05/19 1:00 pm (Please arrive 15 minutes early for paperwork, and bring your photo ID, insurance card and a list of your current medications. ) [facility],Clinic [Primary Care Provider] - 09/27/19 8:00 am (First available follow up in office, they will call you with any openings. ) Patient Instructions/Handouts: How to Stop Smoking (DC), Pneumonia (DC) Activity/Diet/Wound Care/Special Instructions: PNEUMONIA 1. Continue coughing and breathing exercises to help clear your lungs of secretions. 2. Sit upright during the day to promote lung expansion. Avoid lying flat. 3. Use incentive spirometer every hour to open your airways. 4. Wash your hands before taking your medications or using your nebulizer. 5. Drink clear liquids as directed, they can help loosen secretions. Avoid milk products, as these can make secretions thicker. 6. Do not smoke, or be around others who smoke. 7. Call your physician if your shortness of breath worsens, if you develop an increased fever greater than 101.
--- NOTE | 2019-09-08 11:47 | CDI ---
Documentation Clarification Form Date: 09/08/2019 11:27:54 AM From: Precious [email or web address], CCDS Admit Date: 09/05/2019 2:59:00 AM Patient Name: Laura Fajardo Visit Number: [id number] Discharge Date: ATTENTION: The Clinical Documentation Specialists (CDI) and [facility] Coding Staff appreciate your assistance in clarifying documentation. Please respond to the clarification below the line at the bottom and electronically sign. The CDI & [facility] Coding staff will review the response and follow-up if needed. Please note: Queries are made part of the Legal Health Record. If you have any questions, please contact the author of this message via ITS. Dr. Kern Sheet: Per the discharge summary: Sepsis, possibly due to recurrent pneumonia, possible recurrent aspiration. Pneumonia however negative swallow evaluation. History/Risk Factors: Paroxysmal atrial fibrillation, Hypertension, hyperlipidemia, Osteoarthritis, hypothyroidism, possible CHF, ALS & difficulty swallowing. Previous admissions for acute exacerbation COPD & tracheobronchitis & leg cellulitis. Clinical Indicators: Presented with fever 102.4, tachypnea RR 28 & tachycardia. Diagnosed with Sepsis & possible recurrent pneumonia & possible aspiration pneumonia with hyponatremia. Vital signs: T 102.4^, P 89 - 104^, R 22-28^ (sob, labored), BP 136/73, PO 89 RA - 93 2Lnc LAB: WBC: 16.4. Blood cx: neg after 72 hours (final). No sputum culture collected. RAD: Barium swallow eval: No aspiration observed. Single episode of transient penetration with large bolus of think liquid barium. No penetration or aspiration with any other modality tested. Treatment: IV Rocephin, Cefepime, Vancomycin & Zithromax, IV Solumedrol, IV fluids rate 75. Consults: Pulmonary: COPD exacerbation complicated by purulent tracheobronchitis, without significant bronchopneumonia. In order to capture the severity of condition, please clarify if the condition signifies and you are treating for: Aspiration Pneumonia, identify if: o Due to solids or liquids Aspiration Pneumonia ruled out Viral Pneumonia, specify casual organism (if known) Healthcare Acquired Pneumonia/Pneumonia, unspecified Pneumonia ruled out Other, please specify Unable to determine (Last Revision: January 2018) aspiration pna is less likely MTDD
--- NOTE | 2019-09-08 11:55 | P.PN ---
Subjective Progress Note Date: 09/08/19 Principal diagnosis: Chronic obstructive pulmonary disease complicated by purulent tracheobronchitis On 09/06/2019 patient seen in follow-up on selective care unit, he is awake and alert, in no acute distress. No significant cough or phlegm production, he remains on 4 L of oxygen his pulse ox of 95-96%, no fever or chills, respirations are nonlabored, breath sounds are diminished at the bases. Patient was seen by speech therapy and apparently passed his bedside swallow evaluation however patient may be a silent aspirator, and modified barium swallow is completed showing no aspiration. Hemodynamically stable, no altered mentation, today's labs have been reviewed, showing limits AT 17.6, hemoglobin was 13.2, sodium was 136, the rest of electrolytes were within normal limits, BUN is 18 creatinine 0.36. Blood culture has shown no growth, we were unable to send a sputum culture. Antibiotic coverage in the form of cefepime, azithromycin, vancomycin. There has not been recurrence of fever in the last 24 hours. On 09/07/2019 patient seen in follow-up on selective care unit, awake and alert, no acute distress, his breathing is improving, no fever or chills. Is on 2 L of oxygen, pulse ox 95%, lung sounds are clear, diminished at the bases. Blood cell count is improving, down to 14 on today's labs, from 17.6 on yesterday's labs, electrolytes are within normal limits with exception of CO2 which is at 34 on today's labs, renal profile is unremarkable. Cultures showed no growth, patient has not been able to produce a sputum culture for us. Yesterday we sw itched him to oral Augmentin, he remains on oral Lasix, and breathing treatments, clinically improving. On 09/08/2019 patient is seen in follow-up on selective care unit, resting comfortably in bed, he states his breathing is stable, denies any worsening shortness of breath room air pulse ox is 90%, respirations are nonlabored. No fever or chills, microbiology data including blood cultures negative. Patient is on oral dose of Lasix, and he has made 8.8 L of urine yesterday. Lung sounds are clear, diminished, no rhonchi, no wheezing Objective - Vital Signs Vital signs: Vital Signs Temp 97.9 F 09/08/19 07:43 Pulse 60 09/08/19 11:05 Resp 16 09/08/19 08:23 BP 155/76 09/08/19 07:43 Pulse Ox 90 L 09/08/19 07:43 Intake & Output 09/07/19 09/08/19 09/08/19 18:59 06:59 18:59 Intake Total 980 540 Output Total 5300 3500 600 Balance -1894 -3343 -600 Weight 75 kg Intake: Oral 980 540 Output: Urine 5300 3500 600 Other: Voiding Method Indwelling Catheter Indwelling Catheter Indwelling Catheter - Exam GENERAL EXAM: Alert, very pleasant, pale 73-year-old white male, on 2 L of oxygen with a pulse ox of 95-96% comfortable in no apparent distress. HEAD: Normocephalic/atraumatic. EYES: Normal reaction of pupils, equal size. Conjunctiva pink, sclera white. NOSE: Clear with pink turbinates. THROAT: No erythema or exudates. NECK: No masses, no JVD, no thyroid enlargement, no adenopathy. CHEST: No chest wall deformity. Symmetrical expansion. LUNGS: Equal air entry with diminished breath sounds at the bases, no rhonchi, n o wheezes CVS: Regular rate and rhythm, normal S1 and S2, no gallops, no murmurs, no rubs ABDOMEN: Soft, nontender. No hepatosplenomegaly, normal bowel sounds, no guarding or rigidity. EXTREMITIES: No clubbing, mild pedal edema, no cyanosis, 2+ pulses and upper and lower extremities. Foot drop is noted in bilateral lower extremities MUSCULOSKELETAL: Muscle strength and tone normal. SPINE: No scoliosis or deformity SKIN: No rashes CENTRAL NERVOUS SYSTEM: Alert and oriented -3. No focal deficits, tone is normal in all 4 extremities. PSYCHIATRIC: Alert and oriented -3. Appropriate affect. Intact judgment and insight. - Labs CBC & Chem 7: 09/08/19 05:38 09/07/19 05:58 Labs: Abnormal Lab Results - Last 24 Hours (Table) 09/07/19 09/07/19 09/07/19 Range/Units 12:12 16:47 19:55 Plt Count (150-450) k/uL POC Glucose (mg/dL) 116 H 160 H 196 H (75-99) mg/dL 09/08/19 09/08/19 Range/Units 05:38 06:03 Plt Count 526 H (150-450) k/uL POC Glucose (mg/dL) 109 H (75-99) mg/dL Microbiology - Last 24 Hours (Table) 09/05/19 01:50 Blood Culture - Preliminary Blood No Growth after 72 hours Assessment and Plan Plan: Assessment: #1. Acute exacerbation of chronic obstructive pulmonary disease complicated by purulent tracheobronchitis without significant bronchopneumonia #2. 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 Ongoing tobacco use with nicotine addiction #4. Hypothyroidism #5. History of atrial fibrillation #6. History of hyperlipidemia #7. History of hypertension #8. Degenerative joint disease #9. Prior recent history of pneumonia #10. Recent diagnosis of Paula Gehrig's disease/amyotrophic lateral sclerosis #11. History of bilateral leg cellulitis #12. Dysphagia #13. Chronic constipation Plan: Patient remains stable, no worsening shortness of breath, vital signs are stable, he is in negative fluid balance, room air pulse ox is 90%. We will clear the patient for discharge. He will need outpatient follow-up with Dr. Johnson in the office, and he has upcoming appointment on Wednesday with his a last specialist at [facility]. I performed a history & physical examination of the patient and discussed their management with my nurse practitioner, Kristi Barney. I reviewed the nurse practitioner's note and agree with the documented findings and plan of care. Lung sounds are positive for diminished breath sounds. The findings and the impression was discussed with the patient. I attest to the documentation by the nurse practitioner. Time with Patient: Less than 30
[2019-09-08 12:09] LABS: Glucose,Whole Blood 111 mg/dL (75-99)
[2019-09-08 12:12] VITALS: BP 149/71; RESP 18; TEMP 97.4
[2019-09-08 16:12] VITALS: PULSE 60
[2019-09-08 17:12] LABS: Glucose,Whole Blood 169 mg/dL (75-99)
== END 2019-09-08 17:40 | disposition home health service (06) | DRG 872 ==
LOC: EC 01:18 → 3SCARD 02:59
PROVIDERS: ADMIT Hospitalist; ATTEND Hospitalist
PROC: 5A09457 Assistance with Respiratory Ventilation, 24-96 Consecutive Hours, Continuous Positive Airway Pressure (ICD-10-PCS; principal; 2019-09-05)
DX: A41.9 Sepsis, unspecified organism (principal); E87.1 Hypo-osmolality and hyponatremia; E87.2 Acidosis; G12.21 Amyotrophic lateral sclerosis; J44.0 Chronic obstructive pulmonary disease with (acute) lower respiratory infection; J44.1 Chronic obstructive pulmonary disease with (acute) exacerbation; J98.11 Atelectasis; E03.9 Hypothyroidism, unspecified; E78.5 Hyperlipidemia, unspecified; F17.200 Nicotine dependence, unspecified, uncomplicated; I11.0 Hypertensive heart disease with heart failure; I48.0 Paroxysmal atrial fibrillation; I50.9 Heart failure, unspecified; K59.09 Other constipation; M19.90 Unspecified osteoarthritis, unspecified site; R47.81 Slurred speech; T38.0X5A Adverse effect of glucocorticoids and synthetic analogues, initial encounter; Z74.01 Bed confinement status; Z79.01 Long term (current) use of anticoagulants; Z79.51 Long term (current) use of inhaled steroids; Z79.890 Hormone replacement therapy; Z79.899 Other long term (current) drug therapy; Z80.8 Family history of malignant neoplasm of other organs or systems; Z82.3 Family history of stroke; Z82.49 Family history of ischemic heart disease and other diseases of the circulatory system; Z87.01 Personal history of pneumonia (recurrent); Z90.81 Acquired absence of spleen; Z95.1 Presence of aortocoronary bypass graft; Z95.5 Presence of coronary angioplasty implant and graft; Z88.8 Allergy status to other drugs, medicaments and biological substances; Z91.030 Bee allergy status; Z90.49 Acquired absence of other specified parts of digestive tract; Z98.890 Other specified postprocedural states; Z83.49 Family history of other endocrine, nutritional and metabolic diseases
CPT/HCPCS: 36415; 71046; 74230; 80048; 80053; 80202; 83605; 83735; 83880; 85025; 85610; 85730; 87040; 87502; 93005; 94640; 94760; 96365; 96367; 96375; 99285

== ENCOUNTER 2019-09-27 21:04 | Emergency (ER) | payer OTHER, MEDICARE ==
[2019-09-27 21:08] VITALS: TEMP 98.2
[2019-09-27 21:16] VITALS: RESP 18
[2019-09-27] MEDS ORDERED: IPRATROPIUM-ALBUTEROL 3 ML NEB INHALATION STA (21:16)
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
[2019-09-27 21:30] LABS: Basophils % (A) 0 %; Eosinophils # (A) 0.2 k/uL (0-0.7); Eosinophils % (A) 2 %; HGB 14.8 gm/dL (13.0-17.5); Lymphocytes # (A) 1.7 k/uL (1.0-4.8); Lymphocytes % (A) 16 %; MCH 29.8 pg (25.0-35.0); MCHC 32.1 g/dL (31.0-37.0); MCV 92.9 fL (80.0-100.0); Mean Platelet Volume 7.1; Monocytes # (A) 0.8 k/uL (0-1.0); Monocytes % (A) 7 %; Neutrophils # (A) 7.9 k/uL (1.3-7.7); Neutrophils % (A) 73 %; Platelet Count 342 k/uL (150-450); RBC 4.96 m/uL (4.30-5.90); RDW 13.9 % (11.5-15.5); WBC 10.8 k/uL (3.8-10.6)
[2019-09-27 21:39] LABS: ALT 30 U/L (21-72); AST 28 U/L (17-59); African American GFR (CKD) >90 (>60 ml/min/1.73 sqM); Albumin 3.7 g/dL (3.5-5.0); Alkaline Phosphatase 57 U/L (38-126); Anion Gap 6 mmol/L; Blood Urea Nitrogen 14 mg/dL (9-20); Calcium 9.3 mg/dL (8.4-10.2); Carbon Dioxide 35 mmol/L (22-30); Chloride 96 mmol/L (98-107); Glucose 133 mg/dL (74-99); Non-African American GFR(CKD) >90 (>60 ml/min/1.73 sqM); Potassium 4.4 mmol/L (3.5-5.1); Sodium 137 mmol/L (137-145); Total Bilirubin 0.4 mg/dL (0.2-1.3); Total Protein 6.9 g/dL (6.3-8.2)
--- NOTE | 2019-09-27 21:40 | XR ---
EXAMINATION TYPE: XR chest 2V DATE OF EXAM: 09/27/2019 COMPARISON: 09/05/2019 HISTORY: Difficulty breathing TECHNIQUE: 2 views FINDINGS: There is some infiltrate and atelectasis at both posterior lung bases. There are sternal wi res. There is no heart failure. Heart size is normal. There are chest leads. IMPRESSION: Infiltrate and atelectasis at the lung bases not significantly different than last exam. No heart failure seen.
[2019-09-27 21:57] LABS: D-Dimer 0.23 mg/L FEU (<0.60); INR 0.9 (<1.2); Partial Thromboplastin Time 25.3 sec (22.0-30.0); Prothrombin Time 9.9 sec (9.0-12.0)
[2019-09-27 22:22] VITALS: PULSE 80
[2019-09-27] MEDS ORDERED: LEVOFLOXACIN 750MG-D5W PMX 750 MG in DEXTROSE/WATER 1 150ML.BAG IVPB STA (23:27)
[2019-09-27 23:31] VITALS: BP 100/59
== END 2019-09-28 01:18 | disposition home or self-care (01) ==
LOC: EC 21:04
DX: J44.0 Chronic obstructive pulmonary disease with (acute) lower respiratory infection (principal); J18.9 Pneumonia, unspecified organism; J44.1 Chronic obstructive pulmonary disease with (acute) exacerbation; I10 Essential (primary) hypertension; M19.90 Unspecified osteoarthritis, unspecified site; G12.21 Amyotrophic lateral sclerosis; E03.9 Hypothyroidism, unspecified; Z87.891 Personal history of nicotine dependence; Z88.8 Allergy status to other drugs, medicaments and biological substances; Z91.030 Bee allergy status; Z79.890 Hormone replacement therapy; Z79.899 Other long term (current) drug therapy; Z98.1 Arthrodesis status; Z80.2 Family history of malignant neoplasm of other respiratory and intrathoracic organs
CPT/HCPCS: 99285; 96365; 36415; 94640; 93005; 85379; 83880; 80053; 84484; 85025; 85610; 85730; 71046; J1956

== ENCOUNTER 2019-10-02 14:36 | Inpatient (IN) | payer OTHER, MEDICARE ==
[2019-10-02] MEDS ORDERED: IPRATROPIUM-ALBUTEROL 3 ML NEB INHALATION STA (14:50)
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
[2019-10-02 15:06] LABS: Basophils # (A) 0.2 k/uL (0-0.2); Basophils % (A) 2 %; Eosinophils # (A) 0.3 k/uL (0-0.7); Eosinophils % (A) 3 %; HCT 46.8 % (39.0-53.0); HGB 14.8 gm/dL (13.0-17.5); Hypochromasia Slight; Lymphocytes # (A) 1.4 k/uL (1.0-4.8); Lymphocytes % (A) 14 %; MCH 30.1 pg (25.0-35.0); MCHC 31.7 g/dL (31.0-37.0); MCV 95.1 fL (80.0-100.0); Mean Platelet Volume 7.3; Monocytes # (A) 0.6 k/uL (0-1.0); Monocytes % (A) 7 %; Neutrophils # (A) 7.2 k/uL (1.3-7.7); Neutrophils % (A) 74 %; Platelet Count 361 k/uL (150-450); RBC 4.92 m/uL (4.30-5.90); RDW 13.9 % (11.5-15.5); WBC 9.8 k/uL (3.8-10.6)
[2019-10-02 15:15] LABS: ALT 21 U/L (4-49); AST 22 U/L (17-59); African American GFR (CKD) >90 (>60 ml/min/1.73 sqM); Albumin 3.8 g/dL (3.5-5.0); Alkaline Phosphatase 57 U/L (38-126); Anion Gap 7 mmol/L; Blood Urea Nitrogen 9 mg/dL (9-20); Calcium 9.3 mg/dL (8.4-10.2); Carbon Dioxide 36 mmol/L (22-30); Chloride 94 mmol/L (98-107); Creatine Kinase 73 U/L (55-170); Glucose 135 mg/dL (74-99); Non-African American GFR(CKD) >90 (>60 ml/min/1.73 sqM); Potassium 3.9 mmol/L (3.5-5.1); Sodium 137 mmol/L (137-145); Total Bilirubin 0.5 mg/dL (0.2-1.3)
[2019-10-02 15:21] LABS: INR 0.9 (<1.2); Partial Thromboplastin Time 25.8 sec (22.0-30.0)
--- NOTE | 2019-10-02 15:57 | XR ---
EXAMINATION TYPE: XR chest 2V DATE OF EXAM: 10/02/2019 COMPARISON: 09/27/2019 HISTORY: Difficulty breathing TECHNIQUE: Frontal and lateral views of the chest are obtained. FINDINGS: Right basilar airspace disease has become more linear in the interim appearing as atelecta sis. There is also slight obscuration of the retrocardiac airspace. Post CABG changes are seen of the chest and cardiac mediastinal silhouette is stable. Diffuse osseous demineralization. No new sizable pneumothorax. IMPRESSION: 1. There is linear morphology of the previously seen right basilar opacity favoring atelectasis. 2. A vague retrocardiac opacity remains and could represent atelectasis or pneumonia in the proper cl inical setting.
[2019-10-02] MEDS ORDERED: IPRATROPIUM-ALBUTEROL 3 ML NEB INHALATION PRN (16:29)
[2019-10-02] MEDS ORDERED: PIPERACILLIN-TAZOBACTAM 3.375 GM in SODIUM CHLORIDE 0.9% 100 ML IVPB STA (16:29)
[2019-10-02] MEDS ORDERED: PNEUMONIA PROTOCOL UTILIZED 1 EACH MISC PO PRN (16:29)
[2019-10-02] MEDS ORDERED: LEVOFLOXACIN 750MG-D5W PMX 750 MG in DEXTROSE/WATER 1 150ML.BAG IVPB STA (16:29)
[2019-10-02] MEDS ORDERED: SODIUM CHLORIDE 0.9% 1,000 ML IV SCH (16:30)
[2019-10-02] MEDS: methylPREDNISolone SOD SUCCI 125 MG/2 ML VIAL IV SCH ×2 (17:48→23:39)
[2019-10-02] MEDS ORDERED: ZINC OXIDE 20% OINT 28.4 GM TUBE TOPICAL PRN (18:50)
[2019-10-02] MEDS: SYMBICORT 160-4.5 MCG INHALER INHALATION SCH (21:42)
[2019-10-02] MEDS: IPRATROPIUM-ALBUTEROL 3 ML NEB INHALATION SCH (21:43)
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
[2019-10-02] MEDS: (Riluzole [Rilutek] 50 MG) PO SCH (22:09)
[2019-10-02] MEDS: INSULIN ASPART (NovoLOG) 100 UNIT/ML VIAL SQ SCH (22:18)
[2019-10-02] MEDS: APIXABAN 5 MG TAB PO SCH (22:18)
[2019-10-02] MEDS: FUROSEMIDE 40 MG TAB PO SCH (22:19)
[2019-10-02] MEDS: DOCUSATE 100 MG CAP PO SCH (22:19)
[2019-10-02] MEDS: METOPROLOL TARTRATE 50 MG TAB PO SCH (22:19)
[2019-10-02 22:22] LABS: Glucose,Whole Blood 103 mg/dL (75-99)
[2019-10-02] MEDS: PIPERACILLIN-TAZOBACTAM 3.375 GM in SODIUM CHLORIDE 0.9% 100 ML IVPB SCH (23:38)
[2019-10-03] MEDS: methylPREDNISolone SOD SUCCI 125 MG/2 ML VIAL IV SCH ×3 (05:39→17:14)
[2019-10-03] MEDS: LEVOTHYROXINE 88 MCG TAB PO SCH (05:39)
[2019-10-03 07:06] LABS: Glucose,Whole Blood 166 mg/dL (75-99)
[2019-10-03] MEDS ORDERED: PANTOPRAZOLE 40 MG TABLET PO SCH (07:30)
[2019-10-03] MEDS: CHOLECALCIFEROL 1,000 UNIT TAB PO SCH (07:54)
[2019-10-03] MEDS: FUROSEMIDE 40 MG TAB PO SCH ×2 (07:54→22:34)
[2019-10-03] MEDS: APIXABAN 5 MG TAB PO SCH ×2 (07:54→22:35)
[2019-10-03] MEDS: PANTOPRAZOLE 40 MG TABLET PO SCH (07:54)
[2019-10-03] MEDS: METOPROLOL TARTRATE 50 MG TAB PO SCH ×3 (07:54→22:35)
[2019-10-03] MEDS: INSULIN ASPART (NovoLOG) 100 UNIT/ML VIAL SQ SCH ×4 (07:54→22:35)
[2019-10-03] MEDS: SPIRONOLACTONE 25 MG TAB PO SCH (07:54)
[2019-10-03] MEDS: DOCUSATE 100 MG CAP PO SCH ×2 (07:54→22:35)
[2019-10-03] MEDS: ASCORBIC ACID 500 MG TAB PO SCH (07:54)
[2019-10-03] MEDS: (Riluzole [Rilutek] 50 MG) PO SCH ×2 (07:55→22:36)
[2019-10-03] MEDS: PIPERACILLIN-TAZOBACTAM 3.375 GM in SODIUM CHLORIDE 0.9% 100 ML IVPB SCH ×2 (08:07→17:14)
[2019-10-03] MEDS: SYMBICORT 160-4.5 MCG INHALER INHALATION SCH ×2 (08:52→19:48)
[2019-10-03] MEDS: IPRATROPIUM-ALBUTEROL 3 ML NEB INHALATION SCH ×4 (08:52→19:49)
[2019-10-03 08:53] LABS: Basophils % (A) 0 %; Eosinophils % (A) 0 %; HCT 45.9 % (39.0-53.0); HGB 14.5 gm/dL (13.0-17.5); Hypochromasia Slight; Lymphocytes # (A) 0.9 k/uL (1.0-4.8); Lymphocytes % (A) 13 %; MCH 30.1 pg (25.0-35.0); MCHC 31.5 g/dL (31.0-37.0); MCV 95.4 fL (80.0-100.0); Mean Platelet Volume 7.3; Monocytes # (A) 0.1 k/uL (0-1.0); Monocytes % (A) 1 %; Neutrophils # (A) 6.2 k/uL (1.3-7.7); Neutrophils % (A) 86 %; Platelet Count 370 k/uL (150-450); RBC 4.81 m/uL (4.30-5.90); RDW 13.8 % (11.5-15.5); WBC 7.2 k/uL (3.8-10.6)
[2019-10-03] MEDS ORDERED: SAW PALMETTO 160 MG PO SCH (09:00)
[2019-10-03] MEDS ORDERED: NON FORMULARY DRUG (Ubidecarenone [Co Q-10] 100 MG) PO SCH (09:00)
[2019-10-03] MEDS ORDERED: NON FORMULARY DRUG (Omega-3 Fatty Acids/Fish Oil [Fish Oil 1,000 Mg Softgel] 1 CAP) PO SCH (09:00)
[2019-10-03 09:12] LABS: African American GFR (CKD) >90 (>60 ml/min/1.73 sqM); Anion Gap 9 mmol/L; Blood Urea Nitrogen 10 mg/dL (9-20); Calcium 9.6 mg/dL (8.4-10.2); Carbon Dioxide 32 mmol/L (22-30); Chloride 97 mmol/L (98-107); Glucose 185 mg/dL (74-99); Non-African American GFR(CKD) >90 (>60 ml/min/1.73 sqM); Potassium 4.5 mmol/L (3.5-5.1); Sodium 138 mmol/L (137-145)
--- NOTE | 2019-10-03 10:19 | FL ---
EXAMINATION TYPE: FL barium swallow w video DATE OF EXAM: 10/03/2019 MODIFIED SWALLOW / DEGLUTITION STUDY CLINICAL HISTORY: Dysphagia. Recently diagnosed ALS earlier this year. TECHNIQUE: Deglutition study is performed utilizing thin liquid barium, honey and nectar thick liqui d barium, barium thick applesauce, and barium coated cracker. A total 2.01 minutes of fluoroscopic ti me utilized. 0 images saved to PACS. COMPARISON: Prior swallow study September 06, 2019. FINDINGS: The oral and pharyngeal phases show satisfactory initiation and propagation with all modali ties tested. Satisfactory mastication is seen with solid modalities tested. There is no evidence of penetration or aspiration with any modality tested. No significant pharyngeal residue was appreciate d. Surgical change to the cervical spine is redemonstrated. IMPRESSION: No penetration or aspiration seen. No significant change from prior. Please refer to gissel therapist notes for further details if necessary.
--- NOTE | 2019-10-03 11:08 | XR ---
EXAMINATION TYPE: XR chest 2V DATE OF EXAM: 10/03/2019 COMPARISON: 10/02/2019 HISTORY: Follow-up for pneumonia TECHNIQUE: Frontal and lateral views of the chest are obtained. FINDINGS: Improving right linear basilar opacity. Persistent trace pleural effusions. Low lung volum es. Post CABG changes of the cardiomediastinal silhouette. Diffuse osseous demineralization. Persiste nt vague retrocardiac opacity. IMPRESSION: 1. Similar vague retrocardiac opacity that may represent atelectasis or pneumonia. 2. Improving linear right basilar opacity, likely atelectasis. 3. Persistent trace pleural effusions.
[2019-10-03 12:36] LABS: Glucose,Whole Blood 177 mg/dL (75-99)
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
[2019-10-03] MEDS: LEVOFLOXACIN 750MG-D5W PMX 750 MG in DEXTROSE/WATER 1 150ML.BAG IVPB SCH (14:20)
[2019-10-03 17:02] LABS: Glucose,Whole Blood 168 mg/dL (75-99)
[2019-10-03] MEDS: ALPRAZolam 0.5 MG TAB PO PRN (17:14)
--- NOTE | 2019-10-03 17:19 | PN ---
PROGRESS NOTE DATE OF SERVICE: 10/03/2019. This 73-year-old gentleman who was admitted with acute bilateral pneumonia, left more than the right, is being closely monitored. Speech pathology evaluation showed no evidence of any aspiration. Dr. Harris following the patient. Patient on broad spectrum IV antibiotics. The patient being closely monitored at this time. A chest x- ray showed retrocardiac opacity. PAST MEDICAL HISTORY: Reviewed. REVIEW OF SYSTEMS: Cardiovascular system: No angina or palpitations. Respiratory: As mentioned earlier. GASTROINTESTINAL: As mentioned earlier. : As mentioned earlier. CENTRAL NERVOUS SYSTEM: As mentioned earlier. CURRENT MEDICATIONS: Reviewed and include: 1. DuoNeb q.i.d. and p.r.n. 2. Eliquis 5 mg p.o. b.i.d. 3. Vitamin C 500 mg p.o. daily. 4. Symbicort 160/4.5 two puffs b.i.d. 5. Vitamin D3 1000 daily. 6. Colace 100 mg p.o. b.i.d. 7. Lasix 40 mg p.o. b.i.d. 8. NovoLog before meals and q.h.s. 9. Levaquin 750 mg daily. 10.Solu-Medrol 60 IV q.6. 11.Lopressor. 12.Protonix. 13.Zosyn 3.375 IV q.8 hours. 14.Aldactone 25 mg p.o. daily. PHYSICAL EXAMINATION: Patient is alert, oriented x3. Pulse is 78. Blood pressure 144/73, respirations 16, temperature 98 degrees, pulse ox 95 percent on 3 L. HEENT is conjunctivae normal. Oral mucosa is moist. Patient mildly dysarthric. Cardiovascular: S1, S2 muffled. No S3, no S4. Respiration: Breath sounds diminished in the bases. Bilateral scattered rhonchi and crackles. Expiratory wheezing also present. ABDOMEN: Soft, nontender. No mass palpable. Legs: No edema. No swelling. Nervous system: Higher functions as mentioned earlier. Moves all 4 limbs. No focal motor or sensory deficit. LYMPHATICS: No lymph nodes palpable in the neck, axillae or groin. SKIN is no ulcers. JOINTS: No active deforming arthropathy. LAB STUDIES: Sodium 130, potassium 4.5. Glucose 177. Chest x-ray reviewed personally. ASSESSMENT: 1. Acute bilateral pneumonia left more than right, possibly aspiration. 2. History of recurrent pneumonia secondary to aspiration. 3. Possible chronic obstructive pulmonary disease acute exacerbation. 4. Amyotrophic lateral sclerosis. 5. Atrial flutter history. 6. Hypertension. 7. Hyperlipidemia. 8. History of degenerative joint disease. 9. History of coronary artery disease, coronary artery bypass grafting/ stent. 10.History of nicotine dependence. 11.History of splenectomy. RECOMMENDATIONS AND DISCUSSION: Recommend to continue current medications, management and symptomatic treatment. Continue with broad-spectrum IV antibiotics. Continue the bronchodilators. There is no evidence of aspiration at this time. Infectious Disease has evaluated the patient for updating the post splenectomy vaccinations. Otherwise, continue to monitor. Guarded prognosis. Further recommendations to follow. See orders for details. Discussed with the patient at length. MMODL / IJN: [id number] /
[2019-10-03 21:29] LABS: Glucose,Whole Blood 159 mg/dL (75-99)
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
[2019-10-04] MEDS: methylPREDNISolone SOD SUCCI 125 MG/2 ML VIAL IV SCH ×5 (00:19→23:28)
[2019-10-04] MEDS: PIPERACILLIN-TAZOBACTAM 3.375 GM in SODIUM CHLORIDE 0.9% 100 ML IVPB SCH ×4 (00:20→23:29)
[2019-10-04] MEDS: ALPRAZolam 0.5 MG TAB PO PRN ×4 (00:50→23:29)
[2019-10-04] MEDS: LEVOTHYROXINE 88 MCG TAB PO SCH (06:18)
[2019-10-04 07:29] LABS: Glucose,Whole Blood 131 mg/dL (75-99)
[2019-10-04] MEDS: SYMBICORT 160-4.5 MCG INHALER INHALATION SCH ×2 (07:40→20:01)
[2019-10-04] MEDS: IPRATROPIUM-ALBUTEROL 3 ML NEB INHALATION SCH ×4 (07:40→20:01)
[2019-10-04] MEDS: SPIRONOLACTONE 25 MG TAB PO SCH (08:14)
[2019-10-04] MEDS: PANTOPRAZOLE 40 MG TABLET PO SCH (08:14)
[2019-10-04] MEDS: FUROSEMIDE 40 MG TAB PO SCH ×2 (08:15→21:47)
[2019-10-04] MEDS: APIXABAN 5 MG TAB PO SCH ×2 (08:15→21:47)
[2019-10-04] MEDS: METOPROLOL TARTRATE 50 MG TAB PO SCH ×3 (08:15→21:47)
[2019-10-04] MEDS: ASCORBIC ACID 500 MG TAB PO SCH (08:15)
[2019-10-04] MEDS: DOCUSATE 100 MG CAP PO SCH ×2 (08:15→21:47)
[2019-10-04] MEDS: CHOLECALCIFEROL 1,000 UNIT TAB PO SCH (08:15)
[2019-10-04] MEDS: (Riluzole [Rilutek] 50 MG) PO SCH ×2 (08:16→21:42)
[2019-10-04] MEDS: INSULIN ASPART (NovoLOG) 100 UNIT/ML VIAL SQ SCH ×4 (08:16→21:47)
[2019-10-04 10:03] LABS: Basophils # (A) 0.1 k/uL (0-0.2); Basophils % (A) 1 %; Eosinophils % (A) 0 %; HCT 45.7 % (39.0-53.0); HGB 13.9 gm/dL (13.0-17.5); Hypochromasia Slight; Lymphocytes % (A) 10 %; MCH 29.5 pg (25.0-35.0); MCHC 30.5 g/dL (31.0-37.0); Mean Platelet Volume 7.6; Monocytes # (A) 0.4 k/uL (0-1.0); Monocytes % (A) 3 %; Neutrophils # (A) 8.7 k/uL (1.3-7.7); Neutrophils % (A) 85 %; Platelet Count 340 k/uL (150-450); RBC 4.71 m/uL (4.30-5.90); RDW 14.2 % (11.5-15.5); WBC 10.2 k/uL (3.8-10.6)
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
[2019-10-04 10:14] LABS: African American GFR (CKD) >90 (>60 ml/min/1.73 sqM); Anion Gap 8 mmol/L; Blood Urea Nitrogen 14 mg/dL (9-20); Calcium 9.3 mg/dL (8.4-10.2); Carbon Dioxide 31 mmol/L (22-30); Chloride 101 mmol/L (98-107); Glucose 199 mg/dL (74-99); Non-African American GFR(CKD) >90 (>60 ml/min/1.73 sqM); Potassium 4.2 mmol/L (3.5-5.1); Sodium 140 mmol/L (137-145)
[2019-10-04 11:58] LABS: Glucose,Whole Blood 176 mg/dL (75-99)
[2019-10-04] MEDS: LEVOFLOXACIN 750MG-D5W PMX 750 MG in DEXTROSE/WATER 1 150ML.BAG IVPB SCH (15:18)
[2019-10-04 16:52] LABS: Glucose,Whole Blood 185 mg/dL (75-99)
--- NOTE | 2019-10-04 18:07 | PN ---
PROGRESS NOTE DATE OF SERVICE: 10/04/2019 This 73-year-old gentleman who was admitted with acute bilateral pneumonia is on IV antibiotics and bronchodilators. Sensorium is significantly improved at this time. No chest pain. No palpitations. Multiple consultants are following the patient closely. The cultures are negative so far. PHYSICAL EXAMINATION: The patient is conscious, confused. Pulse 64, blood pressure 157/72, respiration 18, temperature 97.3, pulse ox 94% on 3 L. HEENT: Conjunctivae normal. Oral mucosa moist. NECK: No jugular venous distention. No carotid bruit. No lymph node enlargement. CARDIOVASCULAR SYSTEM: S1, S2 muffled. RESPIRATORY SYSTEM: Breath sounds diminished at the bases. Bilateral scattered rhonchi and crackles. ABDOMEN: Soft, non-tender. LEGS: No edema. No swelling. NERVOUS SYSTEM: No focal deficit. LABS: CBC within normal limits. Sodium 142, potassium 4.2. Accu-Cheks are noted. ASSESSMENT: 1. Acute bilateral pneumonia, left more than the right, possibly aspiration. 2. History of recurrent pneumonia, possibly secondary to aspiration. 3. Possible chronic obstructive pulmonary disease, acute exacerbation. 4. Amyotrophic lateral sclerosis. 5. Atrial flutter history. 6. Hypertension. 7. Hyperlipidemia. 8. History of degenerative joint disease. 9. History of coronary artery disease, coronary artery bypass grafting, stent. 10.History of nicotine dependence. 11.History of splenectomy. RECOMMENDATIONS AND DISCUSSION: I recommend to continue current medications, continue with the monitoring, symptomatic treatment. Otherwise at this time I recommend to continue with the broad-spectrum IV antibiotics. Closely follow with Infectious Disease, Pulmonary. Guarded prognosis. Further recommendations to follow. MMODL / IJN: [id number] /
[2019-10-04 20:29] LABS: Glucose,Whole Blood 187 mg/dL (75-99)
--- NOTE | 2019-10-04 22:57 | PN ---
PROGRESS NOTE DATE OF SERVICE: 10/04/2019. REASON FOR FOLLOWUP: Pneumonia. INTERVAL HISTORY: The patient is currently afebrile. The patient has been breathing more comfortably. The patient denies having any chest pain, shortness of breath, occasional cough. No nausea, no vomiting. No abdominal pain. No diarrhea. PHYSICAL EXAMINATION: Blood pressure 157/78 with a pulse of 64. Temperature 97.3. He is 94% on 2 L nasal cannula. General description is an elderly male lying in bed in no distress. Respiratory system: Unlabored breathing, decreased intensity in the bases. No wheeze. Heart S1, S2. Regular rate and rhythm. Abdomen soft, no tenderness. LABS: Sputum culture currently pending. White count 10.2. DIAGNOSTIC IMPRESSION AND PLAN: Patient admitted to the hospital with difficulty breathing which is likely multifactorial with possible component of pneumonia. Patient covered with Zosyn that will continue while waiting for the sputum culture to finalize. Continue supportive care. MMODL / IJN: [id number] /
[2019-10-05 00:19] VITALS: RESP 20
[2019-10-05] MEDS: methylPREDNISolone SOD SUCCI 125 MG/2 ML VIAL IV SCH ×2 (05:48→12:52)
[2019-10-05] MEDS: LEVOTHYROXINE 88 MCG TAB PO SCH (05:53)
[2019-10-05 07:22] LABS: Glucose,Whole Blood 154 mg/dL (75-99)
[2019-10-05] MEDS: (Riluzole [Rilutek] 50 MG) PO SCH (07:24)
[2019-10-05] MEDS: ASCORBIC ACID 500 MG TAB PO SCH (07:34)
[2019-10-05] MEDS: DOCUSATE 100 MG CAP PO SCH (07:34)
[2019-10-05] MEDS: FUROSEMIDE 40 MG TAB PO SCH (07:34)
[2019-10-05] MEDS: CHOLECALCIFEROL 1,000 UNIT TAB PO SCH (07:34)
[2019-10-05] MEDS: INSULIN ASPART (NovoLOG) 100 UNIT/ML VIAL SQ SCH ×2 (07:34→12:53)
[2019-10-05] MEDS: SPIRONOLACTONE 25 MG TAB PO SCH (07:34)
[2019-10-05] MEDS: METOPROLOL TARTRATE 50 MG TAB PO SCH (07:34)
[2019-10-05] MEDS: APIXABAN 5 MG TAB PO SCH (07:34)
[2019-10-05] MEDS: PIPERACILLIN-TAZOBACTAM 3.375 GM in SODIUM CHLORIDE 0.9% 100 ML IVPB SCH (07:34)
[2019-10-05] MEDS: PANTOPRAZOLE 40 MG TABLET PO SCH (07:34)
[2019-10-05] MEDS: IPRATROPIUM-ALBUTEROL 3 ML NEB INHALATION SCH ×2 (09:08→11:42)
[2019-10-05] MEDS: SYMBICORT 160-4.5 MCG INHALER INHALATION SCH (09:08)
[2019-10-05 09:35] LABS: Basophils # (A) 0.2 k/uL (0-0.2); Basophils % (A) 1 %; Eosinophils % (A) 0 %; HCT 46.2 % (39.0-53.0); HGB 14.2 gm/dL (13.0-17.5); Hypochromasia Slight; Lymphocytes # (A) 0.9 k/uL (1.0-4.8); Lymphocytes % (A) 8 %; MCH 29.7 pg (25.0-35.0); MCHC 30.7 g/dL (31.0-37.0); MCV 96.8 fL (80.0-100.0); Mean Platelet Volume 7.9; Monocytes # (A) 0.6 k/uL (0-1.0); Monocytes % (A) 5 %; Neutrophils # (A) 10.7 k/uL (1.3-7.7); Neutrophils % (A) 86 %; Platelet Count 354 k/uL (150-450); RBC 4.77 m/uL (4.30-5.90); RDW 14.2 % (11.5-15.5); WBC 12.4 k/uL (3.8-10.6)
[2019-10-05 09:54] LABS: African American GFR (CKD) >90 (>60 ml/min/1.73 sqM); Anion Gap 6 mmol/L; Blood Urea Nitrogen 16 mg/dL (9-20); Calcium 9.2 mg/dL (8.4-10.2); Carbon Dioxide 33 mmol/L (22-30); Chloride 100 mmol/L (98-107); Glucose 163 mg/dL (74-99); Non-African American GFR(CKD) >90 (>60 ml/min/1.73 sqM); Potassium 4.3 mmol/L (3.5-5.1); Sodium 139 mmol/L (137-145)
[2019-10-05 11:58] LABS: Glucose,Whole Blood 161 mg/dL (75-99)
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
[2019-10-05 12:42] VITALS: BP 123/59; PULSE 57; TEMP 97.4
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
[2019-10-05] MEDS ORDERED: LEVOFLOXACIN 750 MG TAB PO SCH (14:00)
--- NOTE | 2019-10-05 16:23 | P.DS ---
Providers Date of admission: 10/03/19 14:50 Expected date of discharge: 10/05/19 Attending physician: Kash Tsai Consults: 10/02/19 16:29 Consult Physician Routine Consulting Provider: Brayan Harris Consult Reason/Comments: dyspnea Do you want consulting provider notified?: Yes 10/02/19 18:52 Consult Physician Routine Consulting Provider: Nga Chowdhury Consult Reason/Comments: recurrent pneuomonia-update post splectomy vaccines Do you want consulting provider notified?: Yes Primary care physician: [facility] Hospital Course: final diagnosis acute bilateral pneumonia, left more than right, possibly aspiration History of recurrent pneumonia, possibly secondary to aspiration Possible chronic obstructive pulmonary disease, acute exacerbation AMyotrophic lateral sclerosis hypertension Hyperlipidemia Atrial flutter history Degenerative joint disease History of coronary artery disease, coronary artery bypass grafting with stents Discharge disposition patient is being discharged in a stable condition with guarded prognosis to home and [facility] to [facility]. Patient will follow up with primary care provider upon discharge. Patient will continue on a short course of oral antibiotics in the form of Levaquin 500 mg daily for the next 7 days. Patient will continue a prednisone taper along with oral Diflucan daily as well. Total time taken is 35 minutes. History of present illness this is a 73-year-old male who was recently admitted with acute bilateral pneumonia, acute COPD exacerbation and was being closely monitored. Pulmonary was following closely. Patient has a history of ALS and receives home care multiple times at the week. patient was maintained on IV antibiotics and we'll transition to Levaquin 500 mg daily for the next week. Sputum culture showed Adelita albicans and patient will be started on oral Diflucan for the next week as well. Patient will continue on a prednisone taper in the outpatient setting. Patient has a appointment in [place] at the [facility] and does not want to miss that it is very hard to get in. patient will like to go home today and states that he feels much better. Patient is maintained on 3 L via nasal cannula and this is his baseline at home. Infectious disease was following as well. Currently patient's condition is stable and is ready for discharge. On exam vital signs are stable. temp is 97.4F, pulse is 57, respirations are 20, blood pressure is 123/59, oxygen saturation is 95% on 3 L via nasal cannula. cardio S1, S2 are present. Respiratory system shows diminished breath sounds at the bases. Abdomen is soft and nontender. Nervous system shows no focal deficits. Please refer to medication reconciliation sheet for a list of medications. Patient Condition at Discharge: Fair Plan - Discharge Summary Discharge Rx Participant: Yes New Discharge Prescriptions: New Fluconazole [Diflucan] 100 mg PO DAILY 7 Days #7 tab Levofloxacin [Levaquin] 500 mg PO DAILY 7 Days #7 tab predniSONE 10 mg PO DIRECTED #30 tab Budesonide-Formot 160-4.5 Mcg [Symbicort 160-4.5 Mcg Inhaler] 2 puff INHALATION RT-BID 30 Days #1 puff ALPRAZolam [Xanax] 0.5 mg PO QID PRN #12 tab PRN Reason: Anxiety Continue Levothyroxine Sodium [Synthroid] 88 mcg PO DAILY Furosemide [Lasix] 40 mg PO BID Terrell-3 Fatty Acids/Fish Oil [Fish Oil 1,000 mg Softgel] 1 cap PO DAILY Omeprazole 20 mg PO DAILY Apixaban [Eliquis] 5 mg PO BID #60 tab Metoprolol Tartrate [Lopressor] 50 mg PO TID #90 tab Zinc Oxide [Desitin] 1 applic TOPICAL BID PRN PRN Reason: SORE ON BUTTOCKS Riluzole [Rilutek] 50 mg PO BID Ipratropium/Albuterol Sulfate [Combivent Respimat Inhaler] 1 puff INHALATION RT-QID EPINEPHrine (Auto Inject) [Epipen] 0.3 mg IM ONCE PRN PRN Reason: Anaphylaxis Spironolactone [Aldactone] 25 mg PO DAILY Ipratropium Nebulized [Atrovent Nebulized 0.2 MG/ML] 0.5 mg INHALATION RT-Q4H PRN PRN Reason: Shortness Of Breath Albuterol Nebulized [Ventolin Nebulized] 2.5 mg INHALATION RT-Q4H PRN PRN Reason: Shortness Of Breath [place] 160 mg PO DAILY Milk Thistle 150 mg PO DAILY Cholecalciferol [Vitamin D3 (25 Mcg = 1000 Iu)] 1,000 unit PO DAILY Ascorbic Acid [Vitamin C] 500 mg PO DAILY Ubidecarenone [Co Q-10] 100 mg PO DAILY Garlic 1 tab PO DAILY Docusate [Colace] 100 mg PO BID Terrell-3 Fatty Acids/Fish Oil [Fish Oil 1,000 mg Softgel] 1 cap PO DAILY Discontinued Levofloxacin 750 mg PO DAILY #10 tablet Discharge Medication List Furosemide [Lasix] 40 mg PO BID 05/13/17 [History] Levothyroxine Sodium [Synthroid] 88 mcg PO DAILY 05/13/17 [History] Terrell-3 Fatty Acids/Fish Oil [Fish Oil 1,000 mg Softgel] 1 cap PO DAILY 05/13/17 [History] Omeprazole 20 mg PO DAILY 04/17/19 [History] Apixaban [Eliquis] 5 mg PO BID #60 tab 04/24/19 [Rx] Metoprolol Tartrate [Lopressor] 50 mg PO TID #90 tab 04/24/19 [Rx] EPINEPHrine (Auto Inject) [Epipen] 0.3 mg IM ONCE PRN 06/14/19 [History] Ipratropium/Albuterol Sulfate [Combivent Respimat Inhaler] 1 puff INHALATION RT- QID 06/14/19 [History] Riluzole [Rilutek] 50 mg PO BID 06/14/19 [History] Zinc Oxide [Desitin] 1 applic TOPICAL BID PRN 06/14/19 [History] Spironolactone [Aldactone] 25 mg PO DAILY 07/25/19 [History] Albuterol Nebulized [Ventolin Nebulized] 2.5 mg INHALATION RT-Q4H PRN 09/05/19 [History] Ipratropium Nebulized [Atrovent Nebulized 0.2 MG/ML] 0.5 mg INHALATION RT-Q4H PRN 09/05/19 [History] Ascorbic Acid [Vitamin C] 500 mg PO DAILY 10/02/19 [History] Cholecalciferol [Vitamin D3 (25 Mcg = 1000 Iu)] 1,000 unit PO DAILY 10/02/19 [History] Docusate [Colace] 100 mg PO BID 10/02/19 [History] Garlic 1 tab PO DAILY 10/02/19 [History] Milk Thistle 150 mg PO DAILY 10/02/19 [History] Terrell-3 Fatty Acids/Fish Oil [Fish Oil 1,000 mg Softgel] 1 cap PO DAILY 10/02/19 [History] [place] 160 mg PO DAILY 10/02/19 [History] Ubidecarenone [Co Q-10] 100 mg PO DAILY 10/02/19 [History] ALPRAZolam [Xanax] 0.5 mg PO QID PRN #12 tab 10/05/19 [Rx] Budesonide-Formot 160-4.5 Mcg [Symbicort 160-4.5 Mcg Inhaler] 2 puff INHALATION RT-BID 30 Days #1 puff 10/05/19 [Rx] Fluconazole [Diflucan] 100 mg PO DAILY 7 Days #7 tab 10/05/19 [Rx] Levofloxacin [Levaquin] 500 mg PO DAILY 7 Days #7 tab 10/05/19 [Rx] predniSONE 10 mg PO DIRECTED #30 tab 10/05/19 [Rx] Follow up Appointment(s)/Referral(s): [facility],Clinic [Primary Care Provider] - 10/06/19 1:00 pm Patient Instructions/Handouts: Pneumonia (DC) Activity/Diet/Wound Care/Special Instructions: 1st Call Home Care heart healthy diet as tolerated continue PO antibiotics Discharge Disposition: HOME WITH HOME HEALTH SERVICES
== END 2019-10-05 14:55 | disposition home health service (06) | DRG 177 ==
LOC: EC 14:36 → 6NMEDSUR 16:38 → OBSVTOIN 10-03 14:50
PROVIDERS: ADMIT Hospitalist; ATTEND Hospitalist
DX: J69.0 Pneumonitis due to inhalation of food and vomit (principal); J96.01 Acute respiratory failure with hypoxia; G12.21 Amyotrophic lateral sclerosis; I48.20 Chronic atrial fibrillation, unspecified; I48.92 Unspecified atrial flutter; J44.0 Chronic obstructive pulmonary disease with (acute) lower respiratory infection; J44.1 Chronic obstructive pulmonary disease with (acute) exacerbation; J98.11 Atelectasis; E03.9 Hypothyroidism, unspecified; E78.5 Hyperlipidemia, unspecified; F17.210 Nicotine dependence, cigarettes, uncomplicated; I10 Essential (primary) hypertension; I25.10 Atherosclerotic heart disease of native coronary artery without angina pectoris; M19.90 Unspecified osteoarthritis, unspecified site; Z79.01 Long term (current) use of anticoagulants; Z79.890 Hormone replacement therapy; Z79.899 Other long term (current) drug therapy; Z80.8 Family history of malignant neoplasm of other organs or systems; Z82.3 Family history of stroke; Z82.49 Family history of ischemic heart disease and other diseases of the circulatory system; Z87.01 Personal history of pneumonia (recurrent); Z90.49 Acquired absence of other specified parts of digestive tract; Z90.81 Acquired absence of spleen; Z95.1 Presence of aortocoronary bypass graft; Z95.5 Presence of coronary angioplasty implant and graft; Z99.81 Dependence on supplemental oxygen; K59.03 Drug induced constipation; R13.10 Dysphagia, unspecified; H93.12 Tinnitus, left ear; Z88.8 Allergy status to other drugs, medicaments and biological substances; Z91.030 Bee allergy status
CPT/HCPCS: 36415; 71046; 74230; 80048; 80053; 82550; 83880; 84484; 85025; 85610; 85730; 87040; 87070; 87205; 93005; 94640; 96365; 96368; 99285